=== PATIENT | male | born 1955 | race Asian ===

== ENCOUNTER 2020-09-16 23:44 | Inpatient (IN) | payer SELFPAY ==
[~2020-09-16] VITALS: Ht 157.5 cm; Wt 104.2 kg
[2020-09-16] MEDS ORDERED: LORazepam INJ 2 MG/ML (ATIVAN) VIAL ONE (23:53)
[2020-09-17 00:10] LABS: HEMATOCRIT 52 % (40-54); HEMOGLOBIN 17.2 G/DL (13.3-17.7); MEAN CORPUSCULAR HEMOGLOBIN 29 PG (25-34); MEAN CORPUSCULAR HGB CONC 33 G/DL (32-36); MEAN CORPUSCULAR VOLUME 87 FL (80-99); MEAN PLATELET VOLUME 10.2 FL (7.4-10.4); PLATELET COUNT 195 10^3/uL (130-400); WHITE BLOOD COUNT 8.8 10^3/uL (4.3-11.0)
[2020-09-17 00:11] LABS: BASOPHILS % (AUTO) 0 % (0-10); EOSINOPHILS % (AUTO) 0 % (0-10); LYMPHOCYTES # (AUTO) 2.5 X 10^3 (1.0-4.0); LYMPHOCYTES % (AUTO) 29 % (12-44); MONOCYTES # (AUTO) 0.6 X 10^3 (0.0-1.0); MONOCYTES % (AUTO) 7 % (0-12); NEUTROPHILS # (AUTO) 5.6 X 10^3 (1.8-7.8); NEUTROPHILS % (AUTO) 64 % (42-75)
[2020-09-17 00:17] LABS: ABG BASE EXCESS 1.1 MMOL/L (-2.5-2.5); ABG OXYGEN SATURATION 92 % (94-100); ABG PCO2 37 MMHG (35-45); ABG PH 7.44 (7.37-7.43); ABG PO2 61 MMHG (79-93); ABG TCO2 26.2 MMOL/L (21.0-31.0)
[2020-09-17 00:19] LABS: INSPIRED O2 95% BIPAP; PATIENT TEMP 36.9; VENTILATOR NO
[2020-09-17 00:40] LABS: BUN/CREATININE RATIO 14; CARBON DIOXIDE 23 MMOL/L (21-32); CHLORIDE 93 MMOL/L (98-107); CREATININE SERUM 1.77 MG/DL (0.60-1.30); GFR ESTIMATED 39; POTASSIUM 3.5 MMOL/L (3.6-5.0); SODIUM 133 MMOL/L (135-145)
[2020-09-17 00:41] LABS: ALANINE AMINOTRANSFERASE 33 U/L (0-55); ALBUMIN 3.1 GM/DL (3.2-4.5); ALKALINE PHOSPHATASE 64 U/L (40-136); BILIRUBIN,TOTAL 0.4 MG/DL (0.1-1.0); CALCIUM 8.4 MG/DL (8.5-10.1); GLUCOSE 191 MG/DL (70-105); TOTAL PROTEIN 7.2 GM/DL (6.4-8.2)
[2020-09-17] MEDS ORDERED: PIPERACILLIN SODIUM/TAZOBACTAM 4.5 GM in NS (IVPB) 100 ML IV ONE (01:00)
[2020-09-17] MEDS ORDERED: NS IV 1000 ML 1,000 ML IV SCH (01:00)
--- NOTE | 2020-09-17 01:01 | ED General ---
General Chief Complaint: Respiratory Problems Stated Complaint: POS COVID Nursing Triage Note: PT TO ROOM VIA W/C WITH C/O SOB. PT FAMILY STATES THAT PT O2 AT HOME WAS 20%. PT O2 35% UPON ARRIVAL. PT A/O X4. PT BREATHING LABORED. Nursing Sepsis Screen: Possible Severe Sepsis Risk History of Present Illness Date Seen by Provider: Sep 16, 2020 Time Seen by Provider: 23:45 Initial Comments Patient is a 64-year-old male diagnosed with COVID 2 days ago who presents with respiratory distress/respiratory failure. Patient states he is progressively became more short of breath over the past 2 days. Reports history of asthma. On ED arrival, the patient's to With purse lip breathing with an O2 saturation of 40%. Patient brought immediately back to a treatment room and placed on oxygen mask and transitioned to BiPAP. History is limited due to the patient's clinical condition. Timing/Duration: 3-4 Days Severity: Severe Modifying Factors: improves with Other Associated Systoms: Other Allergies and Home Medications Allergies Coded Allergies: No Known Drug Allergies (Unverified , 09/17/20) Patient Home Medication List Home Medication List Reviewed: Yes Review of Systems Review of Systems Constitutional: see HPI EENTM: see HPI Respiratory: see HPI Gastrointestinal: see HPI Genitourinary: see HPI Musculoskeletal: see HPI Skin: see HPI Psychiatric/Neurological: See HPI Hematologic/Lymphatic: See HPI Immunological/Allergic: see HPI Past Nbsiczr-Zcmwvy-Kkgpzd Hx Past Med/Social Hx: Reviewed Nursing Past Med/Soc Hx Patient Social History Alcohol Use: Denies Use Recreational Drug Use: No Smoking Status: Never a Smoker 2nd Hand Smoke Exposure: No Recent Foreign Travel: No Contact w/Someone Who Travel: No Recent Infectious Disease Expo: Yes Recent Hopitalizations: No Physical Abuse: No Sexual Abuse: No Mistreated: No Fear: No Seasonal Allergies Seasonal Allergies: No Past Medical History Surgeries: Yes (THROAT) Respiratory: Yes Asthma, COPD Cardiac: No Neurological: No Genitourinary: No Gastrointestinal: No Musculoskeletal: No Endocrine: Yes Diabetes, Non-Insulin dep HEENT: No Cancer: No Psychosocial: No Integumentary: No Blood Disorders: No Physical Exam Vital Signs Vital Signs - First Documented 09/17/20 00:23 Temp 36.9 Pulse 100 Resp 31 B/P (MAP) 159/84 (109) O2 Delivery Room Air Capillary Refill : Less Than 3 Seconds Height, Weight, BMI Height: '" Weight: lbs. oz. kg; 27.00 BMI Method: General Appearance: Anxious, Moderate Distress, Severe Distress Eyes: Bilateral Eye Normal Inspection, Bilateral Eye PERRL, Bilateral Eye EOMI HEENT: PERRL/EOMI, Other Neck: Supple Respiratory: Decreased Breath Sounds, Respiratory Distress, Rhonci Cardiovascular: Tachycardia Gastrointestinal: Soft Back: Normal Inspection Extremity: Normal Capillary Refill, Normal Inspection Neurologic/Psychiatric: Alert, Oriented x3 Skin: Normal Color Focused Exam Sepsis Stage: Ruled Out Lactate Level 09/17/20 00:11: Lactic Acid Level 3.59*H Lactic Acid Level Laboratory Tests Test 09/17/20 00:11 Lactic Acid Level 3.59 MMOL/L (0.50-2.00) *H Progress/Results/Core Measures Suspected Sepsis Recent Fever Within 48 Hours: Yes Infection Criteria Present: Documented Infection New/Unexplained Altered Menta: No Sepsis Screen: Possible Severe Sepsis Risk SIRS Temperature: Pulse: 100 Respiratory Rate: 31 Laboratory Tests 09/17/20 00:00: White Blood Count 8.8 Blood Pressure 159 /84 Mean: 109 09/17/20 00:11: Lactic Acid Level 3.59*H Laboratory Tests 09/17/20 00:00: Creatinine 1.77H, Platelet Count 195, Total Bilirubin 0.4 Results/Orders Lab Results Laboratory Tests Test 09/17/20 00:00 09/17/20 00:07 09/17/20 00:11 Range/Units White Blood Count 8.8 4.3-11.0 10^3/uL Red Blood Count 5.92 H 4.35-5.85 10^6/uL Hemoglobin 17.2 13.3-17.7 G/DL Hematocrit 52 40-54 % Mean Corpuscular Volume 87 80-99 FL Mean Corpuscular Hemoglobin 29 25-34 PG Mean Corpuscular Hemoglobin Concent 33 32-36 G/DL Red Cell Distribution Width 14.8 H 10.0-14.5 % Platelet Count 195 130-400 10^3/uL Mean Platelet Volume 10.2 7.4-10.4 FL Immature Granulocyte % (Auto) 1 % Neutrophils (%) (Auto) 64 42-75 % Lymphocytes (%) (Auto) 29 12-44 % Monocytes (%) (Auto) 7 0-12 % Eosinophils (%) (Auto) 0 0-10 % Basophils (%) (Auto) 0 0-10 % Neutrophils # (Auto) 5.6 1.8-7.8 X 10^3 Lymphocytes # (Auto) 2.5 1.0-4.0 X 10^3 Monocytes # (Auto) 0.6 0.0-1.0 X 10^3 Eosinophils # (Auto) 0.0 0.0-0.3 10^3/uL Basophils # (Auto) 0.0 0.0-0.1 10^3/uL Immature Granulocyte # (Auto) 0.0 0.0-0.1 10^3/uL Sodium Level 133 L 135-145 MMOL/L Potassium Level 3.5 L 3.6-5.0 MMOL/L Chloride Level 93 L 98-107 MMOL/L Carbon Dioxide Level 23 21-32 MMOL/L Anion Gap 17 H 5-14 MMOL/L Blood Urea Nitrogen 25 H 7-18 MG/DL Creatinine 1.77 H 0.60-1.30 MG/DL Estimat Glomerular Filtration Rate 39 BUN/Creatinine Ratio 14 Glucose Level 191 H 70-105 MG/DL Calcium Level 8.4 L 8.5-10.1 MG/DL Corrected Calcium 9.1 8.5-10.1 MG/DL Total Bilirubin 0.4 0.1-1.0 MG/DL Aspartate Amino Transf (AST/SGOT) 57 H 5-34 U/L Alanine Aminotransferase (ALT/SGPT) 33 0-55 U/L Alkaline Phosphatase 64 40-136 U/L Troponin I < 0.30 <0.30 NG/ML Pro-B-Type Natriuretic Peptide 419.0 H <75.0 PG/ML Total Protein 7.2 6.4-8.2 GM/DL Albumin 3.1 L 3.2-4.5 GM/DL Blood Gas Puncture Site RT RADIAL Blood Gas Patient Temperature 36.9 Arterial Blood pH 7.44 H 7.37-7.43 Arterial Blood Partial Pressure CO2 37 35-45 MMHG Arterial Blood Partial Pressure O2 61 L 79-93 MMHG Arterial Blood HCO3 25 23-27 MMOL/L Arterial Blood Total CO2 26.2 21.0-31.0 MMOL/L Arterial Blood Oxygen Saturation 92 L 94-100 % Arterial Blood Base Excess 1.1 -2.5-2.5 MMOL/L Ned Test NA Blood Gas Ventilator Setting NO Blood Gas Inspired Oxygen 95% BIPAP Lactic Acid Level 3.59 *H 0.50-2.00 MMOL/L My Orders Orders - WENDY ZUNIGA DO Lorazepam Injection (Ativan Injection) (09/16/20 23:53) Cbc With Automated Diff (09/17/20 00:00) Comprehensive Metabolic Panel (09/17/20 00:00) Chest 1 View Ap/Pa Only (09/17/20 00:00) Arterial Blood Gas (09/17/20 00:00) Troponin I Fs (09/17/20 00:00) Probnp Fs (09/17/20 00:00) Blood Culture (09/17/20 00:00) Lactic Acid Analyzer (09/17/20 00:00) Ekg-Prn For Chest Pain Or Rhyt (09/17/20 00:00) Blood Culture (09/17/20 00:11) Ns Iv 1000 Ml (Sodium Chloride 0.9%) (09/17/20 01:00) Piperacillin Sodium/Tazobactam (Zosyn Vi (09/17/20 01:00) Dexamethasone Injection (Decadron Injec (09/17/20 01:00) Lorazepam Injection (Ativan Injection) (09/17/20 01:15) Vital Signs/I&O 09/17/20 00:23 Temp 36.9 Pulse 100 Resp 31 B/P (MAP) 159/84 (109) O2 Delivery Room Air Capillary Refill : Less Than 3 Seconds Blood Pressure Mean: 109 Departure Communication (Admissions) With patient with COVID with respiratory distress with bilateral infiltrates on chest x-ray requiring BiPAP in the 100% oxygen. Patient's breathing improved significantly and he is resting comfortably with Ativan. Antibiotics and steroids given. Will transfer to CDU at [facility]. Family members updated of patient's progress. Impression Primary Impression: Acute respiratory failure with hypoxia Additional Impression: COVID-19 Disposition: 09 ADMITTED INPATIENT Condition: Critical Admissions Decision to Admit Reason: Admit from ER (General) Decision to Admit/Date: Sep 17, 2020 Time/Decision to Admit Time: 01:19 Transfer Transfer Reason: Exceeds level of care Method of Transfer: EMS Departure-Patient Inst. Referrals: NO,LOCAL PHYSICIAN (PCP/Family) Primary Care Physician WENDY ZUNIGA DO Sep 17, 2020 01:01
[2020-09-17] MEDS ORDERED: LORazepam INJ 2 MG/ML (ATIVAN) VIAL IVP ONE (01:15)
[2020-09-17 02:20] VITALS: BP 119/76
[2020-09-17 03:49] LABS: ABG OXYGEN SATURATION 99 % (94-100); ABG PCO2 35 MMHG (35-45); ABG PH 7.42 (7.37-7.43); ABG PO2 139 MMHG (79-93); ALLENS TEST YES-POS; INSPIRED O2 100%; PATIENT TEMP 97.4; VENTILATOR NO
[2020-09-17 04:08] LABS: BASOPHILS % (AUTO) 0 % (0-10); EOSINOPHILS % (AUTO) 0 % (0-10); HEMATOCRIT 48 % (40-54); HEMOGLOBIN 15.9 g/dL (13.3-17.7); LYMPHOCYTES % (AUTO) 12 % (12-44); MEAN CORPUSCULAR HEMOGLOBIN 29 pg (25-34); MEAN CORPUSCULAR HGB CONC 33 g/dL (32-36); MEAN CORPUSCULAR VOLUME 88 fL (80-99); MEAN PLATELET VOLUME 10.1 fL (9.0-12.2); MONOCYTES # (AUTO) 0.5 10^3/uL (0.0-1.0); MONOCYTES % (AUTO) 6 % (0-12); NEUTROPHILS # (AUTO) 6.5 10^3/uL (1.8-7.8); NEUTROPHILS % (AUTO) 82 % (42-75); PLATELET COUNT 174 10^3/uL (130-400)
[2020-09-17 04:22] LABS: POTASSIUM 3.6 MMOL/L (3.6-5.0)
[2020-09-17 04:23] LABS: CALCIUM 7.6 MG/DL (8.5-10.1)
[2020-09-17 04:24] LABS: TOTAL PROTEIN 6.4 GM/DL (6.4-8.2)
[2020-09-17 04:26] LABS: BILIRUBIN,TOTAL 0.4 MG/DL (0.1-1.0)
[2020-09-17 04:28] LABS: CREATININE SERUM 1.82 MG/DL (0.60-1.30)
[2020-09-17] MEDS: POTASSIUM CL 10MEQ/50ML IVPB 50 ML IV SCH ×2 (05:09→05:38)
[2020-09-17] MEDS: KCL 20 MEQ TAB (K-DUR) PO SCH ×2 (05:10→05:38)
[2020-09-17] MEDS: MAGNESIUM 1 GM/100 ML IVPB 100 ML IV SCH ×2 (05:37→05:38)
--- NOTE | 2020-09-17 05:51 | Pulmonary Consultation ---
History of Present Illness History of Present Illness Date Seen by Provider: Sep 17, 2020 Time Seen by Provider: 05:46 Date of Admission Allergies and Home Medications Allergies Coded Allergies: No Known Drug Allergies (Unverified , 09/17/20) Past Tdfazbn-Ddixwy-Vnhkcb Hx Past Med/Social Hx: Reviewed Nursing Past Med/Soc Hx Patient Social History Alcohol Use: Denies Use Number of Drinks Today: 0 Recreational Drug Use: No Smoking Status: Never a Smoker 2nd Hand Smoke Exposure: No Recent Foreign Travel: No Contact w/Someone Who Travel: No Recent Infectious Disease Expo: Yes Recent Hopitalizations: No Physical Abuse: No Sexual Abuse: No Mistreated: No Fear: No Seasonal Allergies Seasonal Allergies: No Past Medical History Surgeries: Yes (throat) Respiratory: Yes Asthma, Pneumonia Currently Using CPAP: No Currently Using BIPAP: No Cardiac: No Neurological: No Genitourinary: No Gastrointestinal: No Musculoskeletal: No Endocrine: Yes Diabetes, Non-Insulin dep HEENT: No Cancer: No Psychosocial: No Integumentary: No Blood Disorders: No Family Medical History Diabetes mellitus 19 FATHER 19 MOTHER Review of Systems Time Seen by Provider: 05:54 Sepsis Event Evaluation Height, Weight, BMI Height: '" Weight: lbs. oz. kg; 30.55 BMI Method: Exam Exam Vital Signs Date Time Temp Pulse Resp B/P (MAP) Pulse Ox O2 Delivery O2 Flow Rate FiO2 09/17/20 04:46 97 NIV Bilevel 100 09/17/20 03:42 76 09/17/20 03:05 36.3 76 50 119/76 (90) 99 NIV Bilevel 100.00 09/17/20 02:15 78 19 107/69 98 NIV CPAP 09/17/20 00:23 36.9 100 31 159/84 (109) Room Air I & O 09/17/20 07:00 Intake Total 1100 ml Balance 1100 ml Height & Weight Height: '" Weight: lbs. oz. kg; 30.55 BMI Method: General Appearance: Anxious, Moderate Distress, Severe Distress HEENT: PERRL/EOMI, Other Neck: Supple Respiratory: Decreased Breath Sounds, Respiratory Distress, Rhonci Cardiovascular: Tachycardia Capillary Refill: Less Than 3 Seconds Extremity: Normal Capillary Refill, Normal Inspection Neurologic/Psychiatric: Alert, Oriented x3 Skin: Normal Color Results Lab Laboratory Tests 09/17/20 00:00 09/17/20 03:54 Assessment/Plan Assessment/Plan Acute respiratory failure with ARDS COVID penumonia -BiPAP with 100% -titrate oxygen down and trial pt to Vapotherm -Decadron -Proning -CVP -COVID dx 5 days ago -Pt does not qualify for remdesivir secondary PNA -Zosyn -jim cultures Acute renal insufficiency -Monitor -Avoid nephrotoxic meds - AsthmaAE -Albuterol -steroids GI/DVT ppx JESSI CRENSHAW DO Sep 17, 2020 05:51
[2020-09-17] MEDS ORDERED: PIPERACILLIN/TAZOBACTAM 4.5 GM in NS (IVPB) 100 ML IV ONE (06:00)
[2020-09-17] MEDS: LACTATED RINGERS 1,000 ML IV SCH (06:52)
[2020-09-17] MEDS ORDERED: dexAMETHasone 6 MG TAB (DECADRON) PO SCH (07:00)
[2020-09-17 07:17] LABS: BILIRUBIN,URINE NEGATIVE (NEGATIVE); CLARITY,URINE CLEAR; COLOR,URINE YELLOW; GLUCOSE, URINE (UA) NEGATIVE (NEGATIVE); KETONES,URINE NEGATIVE (NEGATIVE); LEUKOCYTE ESTERASE ,URINE NEGATIVE (NEGATIVE); NITRITE,URINE NEGATIVE (NEGATIVE); PH,URINE 5.5 (5-9); PROTEIN,URINE 2+ (NEGATIVE)
--- NOTE | 2020-09-17 07:23 | Diagnostic Imaging Report ---
EXAMINATION: Chest 1 view HISTORY: Shortness of breath. COVID 19 infection. COMPARISON: None available. FINDINGS: Hazy opacities are seen throughout the lungs, greatest in the mid right lung. No large pleural effusion or pneumothorax is seen. The cardiomediastinal silhouette is normal in size and contour. No acute osseous abnormality is seen. IMPRESSION: 1. Hazy opacities throughout the lungs, greatest on the right. These findings are consistent with the history of COVID 19 infection. No pleural effusion. Dictated by: Dictated on workstation # [id number]
[2020-09-17 07:24] LABS: BACTERIA,URINE TRACE /HPF; RBC,URINE 0-2 /HPF; SQUAMOUS EPITHELIAL CELL,UR RARE /HPF; WBC,URINE 0-2 /HPF
[2020-09-17] MEDS: FAMOTIDINE 20MG/2ML IV (PEPCID) IVP SCH (08:21)
[2020-09-17] MEDS: ENOXAPARIN 40 MG/0.4 ML (LOVENOX) SYR SC SCH (08:21)
[2020-09-17] MEDS: RT-ALBUTEROL INHALER HFA (VENTOLIN HFA) 18 GM IH SCH ×5 (10:24→21:44)
[2020-09-17 10:35] VITALS: BP 123/69
[2020-09-17] MEDS ORDERED: PRAV40TA2 PO (11:13)
[2020-09-17] MEDS ORDERED: MONT10TA97 PO (11:13)
[2020-09-17] MEDS ORDERED: TMSL.4C PO (11:13)
[2020-09-17] MEDS ORDERED: AMLO-251 PO (11:13)
[2020-09-17] MEDS ORDERED: LOSA50TA63 PO (11:13)
[2020-09-17] MEDS ORDERED: TRZ50T PO (11:13)
[2020-09-17] MEDS: inSUlin ASPART (NovoLOG) 1 UNIT/0.01 ML (CHARGE PER UNIT) SQ SCH ×2 (11:42→18:05)
[2020-09-17] MEDS: PIPERACILLIN/TAZOBACTAM (BULK) 4.5 GM in NS (IVPB) 100 ML IV SCH ×2 (13:20→20:54)
[2020-09-18] MEDS: inSUlin ASPART (NovoLOG) 1 UNIT/0.01 ML (CHARGE PER UNIT) SQ SCH ×5 (00:10→23:24)
[2020-09-18 03:53] LABS: BASOPHILS % (AUTO) 0 % (0-10); EOSINOPHILS % (AUTO) 0 % (0-10); HEMATOCRIT 47 % (40-54); HEMOGLOBIN 15.7 g/dL (13.3-17.7); LYMPHOCYTES # (AUTO) 1.2 10^3/uL (1.0-4.0); LYMPHOCYTES % (AUTO) 11 % (12-44); MEAN CORPUSCULAR HEMOGLOBIN 29 pg (25-34); MEAN CORPUSCULAR HGB CONC 33 g/dL (32-36); MEAN CORPUSCULAR VOLUME 88 fL (80-99); MEAN PLATELET VOLUME 10.3 fL (9.0-12.2); MONOCYTES # (AUTO) 0.7 10^3/uL (0.0-1.0); MONOCYTES % (AUTO) 6 % (0-12); NEUTROPHILS # (AUTO) 8.8 10^3/uL (1.8-7.8); NEUTROPHILS % (AUTO) 82 % (42-75); PLATELET COUNT 197 10^3/uL (130-400); WHITE BLOOD COUNT 10.8 10^3/uL (4.3-11.0)
[2020-09-18 04:04] LABS: POTASSIUM 3.8 MMOL/L (3.6-5.0)
[2020-09-18 04:10] LABS: CREATININE SERUM 1.59 MG/DL (0.60-1.30); PHOSPHORUS 3.8 MG/DL (2.3-4.7)
--- NOTE | 2020-09-18 04:10 | Diagnostic Imaging Report ---
Indication: Shortness of breath Portable chest 2:24 AM Heart enlarged. There are some faint patchy alveolar infiltrates in both lungs. There are no effusions or pneumothoraces. IMPRESSION: Patchy groundglass infiltrates in the lungs consistent with viral pneumonia. No significant change compared to the previous day. Dictated by: Dictated on workstation # [id number]
[2020-09-18 04:12] LABS: MAGNESIUM 2.5 MG/DL (1.6-2.4)
--- NOTE | 2020-09-18 04:26 | Pulmonary Progress Note ---
Subjective Time Seen by a Provider: 04:23 Subjective/Events-last exam Pt is on BiPAP at 60% Sepsis Event Evaluation Height, Weight, BMI Height: '" Weight: lbs. oz. kg; 30.55 BMI Method: Focused Exam Lactate Level 09/17/20 00:11: Lactic Acid Level 3.59*H 09/17/20 03:54: Lactic Acid Level 1.32 Exam Exam Vital Signs Date Time Temp Pulse Resp B/P (MAP) Pulse Ox O2 Delivery O2 Flow Rate FiO2 09/18/20 03:00 71 31 118/84 (95) 97 NIV Bilevel 60.00 09/18/20 02:00 54 112/67 (82) 94 NIV Bilevel 60.00 09/18/20 01:00 67 40 118/77 (91) 98 NIV Bilevel 60.00 09/18/20 00:48 53 24 91 NIV Bilevel 80.00 09/18/20 00:00 70 20 108/59 (82) 92 NIV Bilevel 60.00 09/17/20 23:34 35.4 09/17/20 23:00 55 124/74 (90) 94 NIV Bilevel 60.00 09/17/20 22:00 77 38 102/94 (99) 90 NIV Bilevel 60.00 09/17/20 21:44 64 45 60.00 09/17/20 21:30 NIV Bilevel 60.00 09/17/20 21:00 63 37 120/65 (91) 96 NIV Bilevel 100.00 09/17/20 20:14 65 22 90.00 09/17/20 20:00 93 NIV Bilevel 60 09/17/20 20:00 57 40 121/80 (95) 98 NIV Bilevel 100.00 09/17/20 19:22 35.6 09/17/20 19:00 73 35 115/73 (87) 97 NIV Bilevel 100.00 09/17/20 19:00 74 09/17/20 18:00 59 30 118/77 (91) 95 NIV Bilevel 100.00 09/17/20 17:00 69 38 109/77 (88) 96 NIV Bilevel 100.00 09/17/20 16:00 67 55 126/70 (88) 98 NIV Bilevel 100.00 09/17/20 15:50 35.4 09/17/20 15:00 66 37 112/61 (78) 95 NIV Bilevel 100.00 09/17/20 14:51 61 24 94 90.00 09/17/20 14:49 95 NIV Bilevel 90 09/17/20 14:00 67 46 109/72 (84) 100 NIV Bilevel 100.00 09/17/20 13:00 61 47 100/62 (75) 94 NIV Bilevel 100.00 09/17/20 12:46 58 09/17/20 12:00 68 39 115/78 (90) 98 NIV Bilevel 100.00 09/17/20 11:20 35.3 09/17/20 11:00 71 18 120/69 (86) 97 NIV Bilevel 100.00 09/17/20 10:35 70 28 94 90.00 09/17/20 10:24 88 Vapotherm 40.00 100 09/17/20 10:00 73 16 111/75 (87) 90 NIV Bilevel 100.00 09/17/20 09:00 68 56 115/72 (86) 90 NIV Bilevel 100.00 09/17/20 08:35 90 Vapotherm 40.00 100 09/17/20 08:04 90 Vapotherm 40.00 100 09/17/20 08:00 75 26 111/70 (84) 94 NIV Bilevel 100.00 09/17/20 07:47 36.0 09/17/20 07:13 73 09/17/20 07:00 80 43 135/84 (101) 94 NIV Bilevel 100.00 09/17/20 06:00 62 53 112/75 (92) 95 NIV Bilevel 100.00 09/17/20 05:30 68 50 126/84 (95) NIV Bilevel 100.00 09/17/20 05:05 73 47 95 NIV Bilevel 100.00 09/17/20 05:00 74 48 126/77 (98) 92 NIV Bilevel 100.00 09/17/20 04:46 97 NIV Bilevel 100 09/17/20 04:30 72 56 122/72 (89) 84 NIV Bilevel 100.00 I & O 09/18/20 06:59 Intake Total 150 ml Output Total 1525 ml Balance -1375 ml Height & Weight Height: '" Weight: lbs. oz. kg; 30.55 BMI Method: General Appearance: Anxious, Moderate Distress, Severe Distress HEENT: PERRL/EOMI, Other Neck: Supple Respiratory: Decreased Breath Sounds, Respiratory Distress, Rhonci Cardiovascular: Tachycardia Capillary Refill: Less Than 3 Seconds Extremity: Normal Capillary Refill, Normal Inspection Neurologic/Psychiatric: Alert, Oriented x3 Skin: Normal Color Results Lab Laboratory Tests 09/17/20 00:00 09/17/20 03:54 09/18/20 03:18 Assessment/Plan Assessment/Plan COVID penumonia -BiPAP 24/04 with 60% -titrate oxygen down and trial pt to Vapotherm -Decadron -Proning -CVP -COVID dx 5 days ago -Pt does not qualify for remdesivir secondary PNA -Zosyn -jim cultures Acute renal insufficiency - improving -IVF currently LR at 30 -Monitor -Avoid nephrotoxic meds - AsthmaAE -Albuterol -steroids GI/DVT ppx -Lovenox PPX -Pepcid JESSI CRENSHAW DO Sep 18, 2020 04:26
[2020-09-18] MEDS: POTASSIUM CL 10MEQ/50ML IVPB 50 ML IV SCH (05:24)
[2020-09-18] MEDS: MAGNESIUM 1 GM/100 ML IVPB 100 ML IV SCH (05:24)
[2020-09-18] MEDS: KCL 20 MEQ TAB (K-DUR) PO SCH (05:25)
[2020-09-18] MEDS: LACTATED RINGERS 1,000 ML IV SCH (06:16)
[2020-09-18] MEDS: ENOXAPARIN 40 MG/0.4 ML (LOVENOX) SYR SC SCH (06:16)
[2020-09-18] MEDS: PIPERACILLIN/TAZOBACTAM (BULK) 4.5 GM in NS (IVPB) 100 ML IV SCH ×3 (06:16→19:34)
[2020-09-18 07:05] VITALS: BP 112/68
[2020-09-18] MEDS: RT-ALBUTEROL INHALER HFA (VENTOLIN HFA) 18 GM IH SCH ×5 (07:05→21:59)
[2020-09-18] MEDS: FAMOTIDINE 20MG/2ML IV (PEPCID) IVP SCH (08:00)
[2020-09-18] MEDS: DexMEDEtomidine PRE MIX 100 ML IV SCH (08:07)
[2020-09-18 08:32] LABS: ABG BASE EXCESS -0.1 MMOL/L (-2.5-2.5); ABG OXYGEN SATURATION 91 % (94-100); ABG PCO2 33 MMHG (35-45); ABG PH 7.46 (7.37-7.43); ABG PO2 57 MMHG (79-93); ABG TCO2 24.7 MMOL/L (21.0-31.0); ALLENS TEST YES-POS; INSPIRED O2 50% BIPAP; PATIENT TEMP 35.7; VENTILATOR NO
[2020-09-18 09:57] VITALS: BP 133/75
[2020-09-18 15:08] VITALS: BP 93/65
[2020-09-18 18:52] VITALS: BP 145/87
[2020-09-18] MEDS ORDERED: ACETAMINOPHEN 325 MG TABLET PO ONE (21:24)
[2020-09-18 21:59] VITALS: BP 145/87
[2020-09-19 04:01] LABS: BASOPHILS % (AUTO) 0 % (0-10); EOSINOPHILS % (AUTO) 0 % (0-10); HEMATOCRIT 45 % (40-54); HEMOGLOBIN 15.2 g/dL (13.3-17.7); LYMPHOCYTES # (AUTO) 1.2 10^3/uL (1.0-4.0); LYMPHOCYTES % (AUTO) 11 % (12-44); MEAN CORPUSCULAR HEMOGLOBIN 30 pg (25-34); MEAN CORPUSCULAR HGB CONC 34 g/dL (32-36); MEAN CORPUSCULAR VOLUME 88 fL (80-99); MEAN PLATELET VOLUME 10.8 fL (9.0-12.2); MONOCYTES # (AUTO) 0.6 10^3/uL (0.0-1.0); MONOCYTES % (AUTO) 5 % (0-12); NEUTROPHILS # (AUTO) 9.1 10^3/uL (1.8-7.8); NEUTROPHILS % (AUTO) 83 % (42-75); PLATELET COUNT 188 10^3/uL (130-400)
[2020-09-19 04:20] LABS: POTASSIUM 3.8 MMOL/L (3.6-5.0)
[2020-09-19 04:21] LABS: CALCIUM 7.9 MG/DL (8.5-10.1)
[2020-09-19 04:25] LABS: CREATININE SERUM 1.57 MG/DL (0.60-1.30); PHOSPHORUS 3.6 MG/DL (2.3-4.7)
[2020-09-19 04:28] LABS: MAGNESIUM 2.7 MG/DL (1.6-2.4)
[2020-09-19] MEDS: POTASSIUM CL 10MEQ/50ML IVPB 50 ML IV SCH (04:57)
[2020-09-19] MEDS: MAGNESIUM 1 GM/100 ML IVPB 100 ML IV SCH (04:57)
[2020-09-19] MEDS: KCL 20 MEQ TAB (K-DUR) PO SCH (04:57)
[2020-09-19] MEDS: inSUlin ASPART (NovoLOG) 1 UNIT/0.01 ML (CHARGE PER UNIT) SQ SCH ×4 (04:57→23:36)
[2020-09-19] MEDS: RT-ALBUTEROL INHALER HFA (VENTOLIN HFA) 18 GM IH SCH ×6 (05:17→23:00)
[2020-09-19] MEDS: LACTATED RINGERS 1,000 ML IV SCH ×2 (05:26→16:39)
[2020-09-19] MEDS: PIPERACILLIN/TAZOBACTAM (BULK) 4.5 GM in NS (IVPB) 100 ML IV SCH ×3 (05:43→20:47)
[2020-09-19] MEDS: ENOXAPARIN 40 MG/0.4 ML (LOVENOX) SYR SC SCH (05:43)
[2020-09-19] MEDS: DexMEDEtomidine PRE MIX 100 ML IV SCH ×5 (05:53→20:48)
[2020-09-19 06:40] VITALS: BP 151/77
[2020-09-19 07:43] LABS: ABG BASE EXCESS -1.1 MMOL/L (-2.5-2.5); ABG OXYGEN SATURATION 87 % (94-100); ABG PCO2 30 MMHG (35-45); ABG PH 7.48 (7.37-7.43); ABG PO2 52 MMHG (79-93); ABG TCO2 23.1 MMOL/L (21.0-31.0)
[2020-09-19 07:44] LABS: ALLENS TEST YES-POS; INSPIRED O2 70%; VENTILATOR NO
[2020-09-19 07:45] LABS: PATIENT TEMP 36
[2020-09-19] MEDS: FAMOTIDINE 20MG/2ML IV (PEPCID) IVP SCH (09:02)
[2020-09-19] MEDS ORDERED: LORazepam INJ 2 MG/ML (ATIVAN) VIAL IVP NR (09:45)
--- NOTE | 2020-09-19 10:33 | Diagnostic Imaging Report ---
INDICATION: Dyspnea. TECHNIQUE: Single view chest 3:27 AM. CORRELATION STUDY: 09/18/2020 FINDINGS: Heart size is enlarged. Increasing pulmonary vascular congestion, likely perihilar edema. Mildly prominent interstitial markings. Additional screw scattered groundglass opacities throughout both lung kaufman also appears slightly increased. Left upper extremity central line has been placed, the tip projecting over the high right atrium. IMPRESSION: 1. Increasing bilateral groundglass opacities likely reflecting worsening pneumonia versus edema. Vasculature also appears to be slightly increased from prior. 2. Left upper extremity central line has been placed, the tip projecting over the high right atrium. Dictated by: Dictated on workstation # [id number]
[2020-09-19 11:12] VITALS: BP 183/111
[2020-09-19] MEDS ORDERED: ALTEPLASE 100 MG/VIAL (ACTIVASE) ONE (11:31)
[2020-09-19] MEDS ORDERED: [UNRECOGNIZED DRUG - OTHER] IV ONE (11:34)
[2020-09-19] MEDS ORDERED: fentaNYL DRIP PRE-MIX 0 ML IV ONE (11:34)
[2020-09-19] MEDS ORDERED: MIDAZOLAM IV ONE (11:34)
[2020-09-19] MEDS ORDERED: PROPOFOL DRIP (ICU) 200 ML IV ONE (11:34)
[2020-09-19] MEDS ORDERED: HEParin (CENTRAL IV FLUSH) 500 UNIT/5 ML SYR ONE (11:38)
[2020-09-19] MEDS ORDERED: CATHETER FLUSH 10 ML SYR IV PRN (11:45)
--- NOTE | 2020-09-19 11:53 | Physical Therapy Progress Note ---
Therapy Progress Note Orders received from PT, patient intubated and sedated. We will continue to monitor for PT evaluation. YOGESH TRONCOSO PT Sep 19, 2020 11:53
[2020-09-19 12:15] VITALS: BP 119/82
[2020-09-19] MEDS: PROPOFOL DRIP (ICU) 100 ML IV SCH ×3 (12:30→23:32)
[2020-09-19] MEDS ORDERED: ENOXAPARIN 100 MG/1 ML (LOVENOX) SYR SC SCH (13:00)
--- NOTE | 2020-09-19 13:01 | Progress Note - Hospitalist ---
Subjective HPI/CC On Admission Date Seen by Provider: Sep 19, 2020 Time Seen by Provider: 09:35 Subjective/Events-last exam He is short of breath. He is wearing his BiPAP. He he is tired and weak. Focused Exam Lactate Level 09/17/20 00:11: Lactic Acid Level 3.59*H 09/17/20 03:54: Lactic Acid Level 1.32 Objective Exam Vital Signs Vital Signs Date Time Temp Pulse Resp B/P (MAP) Pulse Ox O2 Delivery O2 Flow Rate FiO2 09/19/20 12:30 63 119/82 09/19/20 12:30 35.7 26 100 Mechanical Ventilator 40.00 09/19/20 12:15 100 Capillary Refill : Less Than 3 Seconds General Appearance: Moderate Distress (tachypnea), Obese Respiratory: Respiratory Distress (tachypnea), Wheezing, Other (wearing BiPAP) Cardiovascular: Regular Rate, Rhythm, No Edema, No Murmur Gastrointestinal: Normal Bowel Sounds, Non Tender, Soft Extremity: Normal Inspection, Non Tender, No Pedal Edema Neurologic/Psychiatric: Alert, Motor Weakness Skin: Normal Color, Warm/Dry Results/Procedures Lab Laboratory Tests 09/19/20 03:22 Patient resulted labs reviewed. Imaging: Reviewed Imaging Report Assessment/Plan Assessment and Plan Assess & Plan/Chief Complaint ARDS due to COVID-19 PNA COVID-19 with pulmonary comorbidity Asthma Decadron BiPAP Precedex Will likely require intubation soon MAT protocol Zosyn D-dimer increasing Defer CT due to renal function Transition to therapeutic Lovenox DEENA Gentle IV fluids Obesity Clinically significant, no acute management needs Diagnosis/Problems Diagnosis/Problems (1) Acute respiratory distress syndrome (ARDS) due to COVID-19 virus Status: Acute (2) COVID-19 with pulmonary comorbidity Status: Acute (3) PNA (pneumonia) Status: Acute (4) Asthma Status: Chronic (5) DEENA (acute kidney injury) Status: Acute (6) Obesity Status: Chronic Clinical Quality Measures DVT/VTE Risk/Contraindication: Risk Factor Score Per Nursin RFS Level Per Nursing on Admit: 4+=Very High LAURA RHODES MD Sep 19, 2020 13:01
[2020-09-19 13:15] LABS: ABG BASE EXCESS -1.6 MMOL/L (-2.5-2.5); ABG OXYGEN SATURATION 100 % (94-100); ABG PCO2 34 MMHG (35-45); ABG PH 7.43 (7.37-7.43); ABG PO2 266 MMHG (79-93); ABG TCO2 23.3 MMOL/L (21.0-31.0)
[2020-09-19 13:18] LABS: ALLENS TEST YES-POS; INSPIRED O2 100%; PATIENT TEMP 36.6; VENTILATOR YES
--- NOTE | 2020-09-19 13:50 | Diagnostic Imaging Report ---
INDICATION: Post intubation. TECHNIQUE: Single view chest 1:05 PM. CORRELATION STUDY: 09/19/2020 FINDINGS: Endotracheal tube has been placed, the tip projecting over the lower trachea. This is approximately 1.5 cm above the level of the ashli. Gastric tube passes below the left hemidiaphragm. Right IJ central line has also been placed, the tip over the SVC. Left upper extremity central line tip over the right atrium stable. Heart size and mediastinum unchanged. A component of pulmonary vascular congestion does persist but perhaps slightly improved. Continued extensive bilateral groundglass opacities throughout both lung kaufman, remaining most pronounced involving the right upper lobe and also appears slightly improved. IMPRESSION: 1. Interval intubation. Endotracheal tube tip projecting over the low trachea and above the level of the ashli. 2. Extensive pulmonary opacities do persist but overall there is slightly improved aeration through the lung kaufman post intubation. Dictated by: Dictated on workstation # [id number]
[2020-09-19] MEDS ORDERED: ROCURONIUM 10 MG/ML 5 ML SYRINGE IV ONE (14:26)
--- NOTE | 2020-09-19 14:44 | Consultation - Surgery ---
History of Present Illness History of Present Illness Patient Consulted On(homer/time) 09/19/20 14:35 Date Seen by Provider: Sep 19, 2020 Time Seen by Provider: 13:00 History of Present Illness Consult requested by Dr. Song for central line placement due to poor venous access. Patient is 64-year-old male who has acute respiratory failure requiring intubation. Covid positive. Patient has a PICC line that is nonfunctioning at this time and patient needing central venous access. Patient is intubated and sedated, unable to provide any information. Allergies and Home Medications Allergies Coded Allergies: No Known Drug Allergies (Unverified , 09/17/20) Home Medications Amlodipine Besylate 10 Mg Tablet, 10 MG PO DAILY, (Reported) Losartan Potassium 50 Mg Tablet, 50 MG PO DAILY, (Reported) Montelukast Sodium 10 Mg Tablet, 10 MG PO HS, (Reported) Pravastatin Sodium 40 Mg Tablet, 40 MG PO HS, (Reported) Tamsulosin HCl 0.4 Mg Cap, 0.8 MG PO DAILY, (Reported) TAKES 2 (0.4MG) CAPS Trazodone HCl 50 Mg Tablet, 50 MG PO HS PRN for SLEEP, (Reported) Patient Home Medication List Home Medication List Reviewed: Yes Past Omsodfs-Sfnbav-Qihipa Hx Patient Social History Alcohol Use: Denies Use Number of Drinks Today: 0 Recreational Drug Use: No Smoking Status: Never a Smoker 2nd Hand Smoke Exposure: No Recent Foreign Travel: No Contact w/Someone Who Travel: No Recent Infectious Disease Expo: Yes Recent Hopitalizations: No Physical Abuse Screen: No Sexual Abuse: No Seasonal Allergies Seasonal Allergies: No Surgeries History of Surgeries: Yes (throat) Respiratory History of Respiratory Disorde: Yes Respiratory Disorders: Asthma, Pneumonia Cardiovascular History of Cardiac Disorders: No Neurological History of Neurological Disord: No Genitourinary History of Genitourinary Disor: No Gastrointestinal History of Gastrointestinal Di: No Musculoskeletal History of Musculoskeletal Dis: No Endocrine History of Endocrine Disorders: Yes Endocrine Disorders: Diabetes, Non-Insulin dep HEENT History of HEENT Disorders: No Cancer History of Cancer: No Psychosocial History of Psychiatric Problem: No Integumentary History of Skin or Integumenta: No Blood Transfusions History of Blood Disorders: No Reviewed Nursing Assessment Reviewed/Agree w Nursing PMH: Yes Family Medical History Significant Family History: No Pertinent Family Hx (Unable to provide) Family Medial History: Diabetes mellitus 19 FATHER 19 MOTHER Review of Systems-General ROS-Unable to Obtain: Unable to provide intubated and sedated. Physical Exam-General Problems Physical Exam Vital Signs Vital Signs - First Documented 09/17/20 09/17/20 09/17/20 09/17/20 00:23 02:15 02:20 04:46 Temp 36.9 Pulse 100 Resp 31 B/P (MAP) 159/84 (109) Pulse Ox 98 O2 Delivery Room Air O2 Flow Rate 100.00 FiO2 100 Capillary Refill : Less Than 3 Seconds General Appearance: no apparent distress (Intubated and sedated) HEENT: PERRL/EOMI, normal ENT inspection Neck: non-tender, supple Respiratory: no respiratory distress, no accessory muscle use, other (ET tube in place) Cardiovascular: regular rate, rhythm, no JVD Gastrointestinal: non tender, soft Rectal: deferred Back: normal inspection Extremities: normal inspection; No swelling Neurologic/Psychiatric: No alert, No normal mood/affect, No oriented x 3 (Intubated and sedated) Skin: normal color, warm/dry Lymphatic: no adenopathy Data Review Labs Laboratory Tests 09/18/20 17:11: Glucometer 173H 09/18/20 23:17: Glucometer 190H 09/19/20 03:22: White Blood Count 11.0, Red Blood Count 5.14, Hemoglobin 15.2, Hematocrit 45, Mean Corpuscular Volume 88, Mean Corpuscular Hemoglobin 30, Mean Corpuscular Hemoglobin Concent 34, Red Cell Distribution Width 14.6H, Platelet Count 188, Mean Platelet Volume 10.8, Immature Granulocyte % (Auto) 1, Neutrophils (%) (Auto) 83H, Lymphocytes (%) (Auto) 11L, Monocytes (%) (Auto) 5, Eosinophils (%) (Auto) 0, Basophils (%) (Auto) 0, Neutrophils # (Auto) 9.1H, Lymphocytes # (Auto) 1.2, Monocytes # (Auto) 0.6, Eosinophils # (Auto) 0.0, Basophils # (Auto) 0.0, Immature Granulocyte # (Auto) 0.1, Sodium Level 142, Potassium Level 3.8, Chloride Level 109H, Carbon Dioxide Level 20L, Anion Gap 13, Blood Urea Nitrogen 39H, Creatinine 1.57H, Estimat Glomerular Filtration Rate 44, BUN/Creatinine Ra mikhail 25, Glucose Level 107H, Calcium Level 7.9L, Phosphorus Level 3.6, Magnesium Level 2.7H 09/19/20 03:27: D-Dimer 2.11H, Procalcitonin 0.42H 09/19/20 07:39: Blood Gas Puncture Site R RAD, Blood Gas Patient Temperature 36, Arterial Blood pH 7.48H, Arterial Blood Partial Pressure CO2 30L, Arterial Blood Partial Pressure O2 52L, Arterial Blood HCO3 22L, Arterial Blood Total CO2 23.1, Arterial Blood Oxygen Saturation 87L, Arterial Blood Base Excess -1.1, Ned Test YES-POS, Blood Gas Ventilator Setting NO, Blood Gas Inspired Oxygen 70% 09/19/20 12:26: Glucometer 153H 09/19/20 13:05: Blood Gas Puncture Site L RADIAL, Blood Gas Patient Temperature 36.6, Arterial Blood pH 7.43, Arterial Blood Partial Pressure CO2 34L, Arterial Blood Partial Pressure O2 266H, Arterial Blood HCO3 22L, Arterial Blood Total CO2 23.3, Arterial Blood Oxygen Saturation 100, Arterial Blood Base Excess -1.6, Ned Test YES-POS, Blood Gas Ventilator Setting YES, Blood Gas Inspired Oxygen 100% Assessment/Plan Assessment/Plan Assessment/Plan Covid pneumonia Acute respiratory failure requiring intubation Poor venous access Patient is 64-year-old male just intubated. He has a PICC line but not functioning properly needing central venous access. Central line placed using ultrasound guidance. Chest x-ray pending. We will sign off call if needed. Procedure: Right internal jugular vein ultrasound-guided central line placement Patient was prepped and draped in a sterile fashion. Timeout was performed. Ultrasound was used to isolate the right internal jugular vein and local anesthetic was infiltrated. A total of 3 mL of 1% lidocaine. Under ultrasound guidance the right internal jugular vein was accessed dark nonpulsatile blood was withdrawn. The wire was inserted through the needle and the needle was removed. 11 blade scalpel was used to make a small skin incision at the insertion point. The dilator was then advanced over the wire and removed. The triple-lumen catheter was inserted over the guidewire and the wire was removed. The catheter was then secured using 3-0 silk suture. All ports were accessed and flushed without difficulty. The area was washed and dried and sterile bandage was applied. Chest x-ray pending Clinical Quality Measures DVT/VTE Risk/Contraindication: Risk Factor Score Per Nursin RFS Level Per Nursing on Admit: 4+=Very High MARVEL CORTEZ DO Sep 19, 2020 14:43
[2020-09-19 14:48] VITALS: BP 155/120
[2020-09-19] MEDS ORDERED: ENOXAPARIN 40 MG/0.4 ML (LOVENOX) SYR SC SCH (18:00)
[2020-09-19] MEDS: ENOXAPARIN 80 MG/0.8 ML (LOVENOX) SYR SC SCH (18:03)
[2020-09-19 19:05] VITALS: BP 148/80
[2020-09-20] MEDS: DexMEDEtomidine PRE MIX 100 ML IV SCH ×8 (00:23→23:49)
[2020-09-20] MEDS: RT-ALBUTEROL INHALER HFA (VENTOLIN HFA) 18 GM IH SCH ×6 (01:36→22:50)
[2020-09-20] MEDS: PIPERACILLIN/TAZOBACTAM (BULK) 4.5 GM in NS (IVPB) 100 ML IV SCH ×3 (03:33→20:53)
[2020-09-20 03:46] LABS: ABG BASE EXCESS -0.7 MMOL/L (-2.5-2.5); ABG OXYGEN SATURATION 98 % (94-100); ABG PCO2 31 MMHG (35-45); ABG PH 7.47 (7.37-7.43); ABG PO2 101 MMHG (79-93); ABG TCO2 23.3 MMOL/L (21.0-31.0)
[2020-09-20 03:47] LABS: BASOPHILS % (AUTO) 0 % (0-10); EOSINOPHILS % (AUTO) 0 % (0-10); HEMATOCRIT 48 % (40-54); HEMOGLOBIN 15.8 g/dL (13.3-17.7); LYMPHOCYTES # (AUTO) 1.4 10^3/uL (1.0-4.0); LYMPHOCYTES % (AUTO) 13 % (12-44); MEAN CORPUSCULAR HEMOGLOBIN 29 pg (25-34); MEAN CORPUSCULAR HGB CONC 33 g/dL (32-36); MEAN CORPUSCULAR VOLUME 89 fL (80-99); MEAN PLATELET VOLUME 10.9 fL (9.0-12.2); MONOCYTES # (AUTO) 0.4 10^3/uL (0.0-1.0); MONOCYTES % (AUTO) 4 % (0-12); NEUTROPHILS # (AUTO) 8.7 10^3/uL (1.8-7.8); NEUTROPHILS % (AUTO) 82 % (42-75); PLATELET COUNT 129 10^3/uL (130-400); WHITE BLOOD COUNT 10.6 10^3/uL (4.3-11.0)
[2020-09-20 03:48] LABS: ALLENS TEST YES-POS; INSPIRED O2 50%; PATIENT TEMP 37.7; VENTILATOR YES
[2020-09-20] MEDS: PROPOFOL DRIP (ICU) 100 ML IV SCH ×4 (03:50→23:42)
[2020-09-20 03:54] LABS: POTASSIUM 3.8 MMOL/L (3.6-5.0)
[2020-09-20 03:55] LABS: CALCIUM 7.5 MG/DL (8.5-10.1)
[2020-09-20 04:00] LABS: CREATININE SERUM 2.1 MG/DL (0.60-1.30); PHOSPHORUS 3.9 MG/DL (2.3-4.7)
[2020-09-20 04:12] LABS: FIBRIN DEGRADATION PRODUCTS 7.87 UG/ML (0.00-0.49); INR 1.2 (0.8-1.4); PROTHROMBIN TIME PATIENT 15.1 SEC (12.2-14.7)
[2020-09-20] MEDS: MAGNESIUM 1 GM/100 ML IVPB 100 ML IV SCH (05:52)
[2020-09-20] MEDS: POTASSIUM CL 10MEQ/50ML IVPB 50 ML IV SCH (05:52)
[2020-09-20] MEDS: inSUlin ASPART (NovoLOG) 1 UNIT/0.01 ML (CHARGE PER UNIT) SQ SCH ×4 (05:53→23:41)
[2020-09-20] MEDS: KCL 20 MEQ TAB (K-DUR) PO SCH (05:53)
[2020-09-20] MEDS: ENOXAPARIN 80 MG/0.8 ML (LOVENOX) SYR SC SCH (06:56)
[2020-09-20 07:27] VITALS: BP 108/85
--- NOTE | 2020-09-20 07:33 | Diagnostic Imaging Report ---
EXAM: Portable semi-erect AP chest at 3:35 PM INDICATION: Dyspnea FINDINGS: The heart size is within normal limits and stable when compared to 09/19/2020. The alveolar/interstitial pulmonary infiltrates involving both lungs, particularly the right lung, seen previously, are again evident. The lungs do seem slightly better aerated on today's exam. The mediastinum is not widened. The osseous structures are intact. The supportive tubes and lines remain in good position. IMPRESSION: The appearance of the chest has improved somewhat as both lungs do seem slightly better aerated. Dictated by: Dictated on workstation # [id number]
[2020-09-20] MEDS: PANTOPRAZOLE 40 MG (PROTONIX) VIAL IV SCH (08:48)
[2020-09-20] MEDS: ACETAMINOPHEN 650 MG SUPP (TYLENOL) PR PRN ×3 (09:23→23:41)
[2020-09-20 11:23] VITALS: BP 138/86
--- NOTE | 2020-09-20 14:58 | Progress Note - Hospitalist ---
Subjective HPI/CC On Admission Date Seen by Provider: Sep 20, 2020 Time Seen by Provider: 11:00 Subjective/Events-last exam He is intubated and sedated. Objective Exam Vital Signs Vital Signs Date Time Temp Pulse Resp B/P (MAP) Pulse Ox O2 Delivery O2 Flow Rate FiO2 09/20/20 14:00 67 158/93 (118) 92 Mechanical Ventilator 55.00 09/20/20 13:49 37.6 09/20/20 13:30 37 09/20/20 11:23 50 Capillary Refill : Less Than 3 Seconds General Appearance: No Apparent Distress, Obese, Other (intubated and sedated) Respiratory: No Respiratory Distress, Crackles, Other (mechanically ventilated) Cardiovascular: Regular Rate, Rhythm, No Edema, No Murmur Gastrointestinal: Normal Bowel Sounds, Soft Extremity: Normal Inspection, No Pedal Edema Neurologic/Psychiatric: Other (sedated) Skin: Normal Color, Warm/Dry Results/Procedures Lab Laboratory Tests 09/20/20 03:39 Patient resulted labs reviewed. Imaging: Reviewed Imaging Report Assessment/Plan Assessment and Plan Assess & Plan/Chief Complaint ARDS due to COVID-19 PNA COVID-19 with pulmonary comorbidity Hypercoagulable state associated with COVID-19 Asthma Decadron Convalescent plasma ordered Intubated 09/19, TeleICU managing vent settings Zosyn D-dimer significantly elevated Defer CT due to renal function Therapeutic Lovenox DEENA Increase fluids Obesity Clinically significant, no acute management needs Diagnosis/Problems Diagnosis/Problems (1) Acute respiratory distress syndrome (ARDS) due to COVID-19 virus Status: Acute (2) COVID-19 with pulmonary comorbidity Status: Acute (3) PNA (pneumonia) Status: Acute (4) Asthma Status: Chronic (5) DEENA (acute kidney injury) Status: Acute (6) Obesity Status: Chronic (7) Hypercoagulable state associated with COVID-19 Status: Acute (8) Acute kidney injury due to COVID-19 Status: Acute (9) Endotracheally intubated Status: Acute Clinical Quality Measures DVT/VTE Risk/Contraindication: Risk Factor Score Per Nursin RFS Level Per Nursing on Admit: 4+=Very High LAURA RHODES MD Sep 20, 2020 14:58
[2020-09-20 14:59] VITALS: BP 162/90
[2020-09-20 18:57] VITALS: BP 139/88
[2020-09-20 22:50] VITALS: BP 135/78
[2020-09-21] VITALS (8 sets, daily range): BP systolic 111–155; BP diastolic 70–88
[2020-09-21] MEDS: LACTATED RINGERS 1,000 ML IV SCH ×3 (01:41→23:52)
[2020-09-21] MEDS: RT-ALBUTEROL INHALER HFA (VENTOLIN HFA) 18 GM IH SCH ×6 (02:24→21:33)
[2020-09-21] MEDS: PIPERACILLIN/TAZOBACTAM (BULK) 4.5 GM in NS (IVPB) 100 ML IV SCH ×3 (03:32→19:53)
[2020-09-21] MEDS: PROPOFOL DRIP (ICU) 100 ML IV SCH ×4 (03:32→19:55)
[2020-09-21] MEDS: DexMEDEtomidine PRE MIX 100 ML IV SCH ×5 (03:33→21:41)
[2020-09-21 04:09] LABS: BASOPHILS % (AUTO) 0 % (0-10); EOSINOPHILS % (AUTO) 0 % (0-10); HEMATOCRIT 45 % (40-54); HEMOGLOBIN 14.7 g/dL (13.3-17.7); LYMPHOCYTES # (AUTO) 1.9 10^3/uL (1.0-4.0); LYMPHOCYTES % (AUTO) 15 % (12-44); MEAN CORPUSCULAR HEMOGLOBIN 29 pg (25-34); MEAN CORPUSCULAR HGB CONC 33 g/dL (32-36); MEAN CORPUSCULAR VOLUME 90 fL (80-99); MEAN PLATELET VOLUME 11.7 fL (9.0-12.2); MONOCYTES # (AUTO) 0.4 10^3/uL (0.0-1.0); MONOCYTES % (AUTO) 3 % (0-12); NEUTROPHILS # (AUTO) 9.9 10^3/uL (1.8-7.8); NEUTROPHILS % (AUTO) 81 % (42-75); PLATELET COUNT 125 10^3/uL (130-400); WHITE BLOOD COUNT 12.2 10^3/uL (4.3-11.0)
[2020-09-21 04:11] LABS: POTASSIUM 3.8 MMOL/L (3.6-5.0)
[2020-09-21 04:13] LABS: CALCIUM 7.3 MG/DL (8.5-10.1)
[2020-09-21 04:17] LABS: CREATININE SERUM 2.27 MG/DL (0.60-1.30); PHOSPHORUS 3.5 MG/DL (2.3-4.7)
[2020-09-21 04:44] LABS: ABG BASE EXCESS -0.7 MMOL/L (-2.5-2.5); ABG OXYGEN SATURATION 96 % (94-100); ABG PCO2 33 MMHG (35-45); ABG PH 7.45 (7.37-7.43); ABG PO2 87 MMHG (79-93); ABG TCO2 23.4 MMOL/L (21.0-31.0)
[2020-09-21 04:48] LABS: ALLENS TEST YES-POS; INSPIRED O2 45%; PATIENT TEMP 38.2; VENTILATOR YES
[2020-09-21] MEDS: MAGNESIUM 1 GM/100 ML IVPB 100 ML IV SCH (05:04)
[2020-09-21] MEDS: KCL 20 MEQ TAB (K-DUR) PO SCH (05:04)
[2020-09-21] MEDS: POTASSIUM CL 10MEQ/50ML IVPB 50 ML IV SCH (05:04)
[2020-09-21] MEDS: inSUlin ASPART (NovoLOG) 1 UNIT/0.01 ML (CHARGE PER UNIT) SQ SCH ×4 (05:05→23:52)
--- NOTE | 2020-09-21 05:38 | Pulmonary Progress Note ---
Subjective Time Seen by a Provider: 05:37 Sepsis Event Evaluation Height, Weight, BMI Height: '" Weight: lbs. oz. kg; 30.55 BMI Method: Exam Exam Vital Signs Date Time Temp Pulse Resp B/P (MAP) Pulse Ox O2 Delivery O2 Flow Rate FiO2 09/21/20 04:03 38.0 93 Mechanical Ventilator 45.00 09/21/20 04:00 66 20 102/64 (77) 93 Mechanical Ventilator 45.00 09/21/20 03:33 38.4 65 22 136/81 94 Mechanical Ventilator 45.00 09/21/20 03:32 135/77 09/21/20 03:00 66 20 103/62 (76) 94 Mechanical Ventilator 45.00 09/21/20 02:24 65 22 94 45 09/21/20 02:00 66 20 133/81 (98) 94 Mechanical Ventilator 45.00 09/21/20 01:00 71 26 131/76 (94) 94 Mechanical Ventilator 45.00 09/21/20 00:53 69 09/21/20 00:00 71 26 127/75 (92) 93 Mechanical Ventilator 45.00 09/20/20 23:49 38.4 71 28 153/89 92 Mechanical Ventilator 45.00 09/20/20 23:42 153/89 09/20/20 23:41 38.4 09/20/20 23:33 38.8 71 28 153/89 (110) 92 Mechanical Ventilator 45.00 09/20/20 22:50 67 28 94 45 09/20/20 21:00 70 118/74 (93) 92 09/20/20 20:54 70 127/76 09/20/20 20:00 98 Mechanical Ventilator 50 09/20/20 20:00 68 27 141/82 (98) 93 09/20/20 19:45 69 28 136/80 (99) 93 09/20/20 19:30 68 29 132/77 (100) 93 09/20/20 19:23 37.9 09/20/20 19:15 69 30 129/76 (89) 93 09/20/20 19:00 71 09/20/20 19:00 68 139/92 (117) 89 09/20/20 18:57 69 29 94 45 09/20/20 18:00 67 141/81 (105) 94 Mechanical Ventilator 55.00 09/20/20 17:54 37.2 09/20/20 17:45 67 140/82 (98) 95 09/20/20 17:30 67 143/83 (106) 94 09/20/20 17:15 67 142/79 (101) 95 09/20/20 17:00 69 143/81 (108) 95 Mechanical Ventilator 55.00 09/20/20 16:50 70 138/81 09/20/20 16:45 69 138/81 (104) 94 09/20/20 16:30 69 145/81 (105) 94 09/20/20 16:15 70 143/79 (104) 93 09/20/20 16:00 71 139/77 (102) 93 Mechanical Ventilator 55.00 09/20/20 15:46 39.0 09/20/20 15:46 70 162/90 09/20/20 15:45 70 159/91 (124) 92 09/20/20 15:30 70 157/91 (101) 93 09/20/20 15:15 70 165/89 (118) 93 09/20/20 15:00 70 162/90 (121) 93 Mechanical Ventilator 55.00 09/20/20 14:59 69 31 94 45 09/20/20 14:45 67 164/92 (125) 94 09/20/20 14:30 66 162/93 (125) 93 09/20/20 14:15 66 167/91 (115) 92 09/20/20 14:00 67 158/93 (118) 92 Mechanical Ventilator 55.00 09/20/20 13:49 37.6 09/20/20 13:45 75 157/93 (114) 97 09/20/20 13:42 68 151/92 09/20/20 13:30 67 37 151/92 (118) 97 09/20/20 13:15 68 25 160/91 (110) 98 09/20/20 13:00 66 09/20/20 13:00 69 27 156/96 (125) 97 Mechanical Ventilator 55.00 09/20/20 12:45 68 42 157/92 (118) 97 09/20/20 12:30 67 29 159/91 (118) 97 09/20/20 12:15 68 27 158/87 (113) 97 09/20/20 12:00 67 28 160/92 (114) 96 Mechanical Ventilator 55.00 09/20/20 11:55 36.4 09/20/20 11:40 35.0 09/20/20 11:23 63 29 97 50 09/20/20 11:00 67 28 138/84 (105) 98 Mechanical Ventilator 55.00 09/20/20 10:45 67 28 141/82 (105) 97 09/20/20 10:36 39.3 66 28 135/82 96 Mechanical Ventilator 40.00 09/20/20 10:30 68 31 135/82 (101) 97 09/20/20 10:15 65 28 138/81 (99) 97 09/20/20 10:00 66 28 128/78 (97) 96 Mechanical Ventilator 55.00 09/20/20 09:45 66 28 117/81 (95) 96 09/20/20 09:30 66 31 107/73 (84) 94 09/20/20 09:23 39.3 09/20/20 09:15 70 41 116/83 (92) 99 09/20/20 09:04 68 111/87 09/20/20 09:00 70 35 115/79 (90) 99 Mechanical Ventilator 55.00 09/20/20 08:45 69 34 119/86 (94) 98 09/20/20 08:30 69 40 113/84 (99) 98 09/20/20 08:18 39.3 09/20/20 08:15 68 35 114/86 (95) 98 09/20/20 08:00 68 38 111/87 (93) 98 Mechanical Ventilator 55.00 09/20/20 08:00 98 Mechanical Ventilator 50 09/20/20 07:45 67 26 122/81 (89) 98 09/20/20 07:30 67 25 107/77 (89) 98 09/20/20 07:27 68 27 98 50 09/20/20 07:16 67 108/85 09/20/20 07:15 67 43 108/85 (93) 98 09/20/20 07:00 67 09/20/20 07:00 66 25 115/83 (89) 99 Mechanical Ventilator 55.00 09/20/20 06:45 67 26 113/82 (94) 98 09/20/20 06:30 67 32 111/80 (88) 98 09/20/20 06:15 67 26 112/79 (91) 98 09/20/20 06:00 67 27 112/77 (89) 98 Mechanical Ventilator 55.00 I & O 09/21/20 07:00 Intake Total 1240 ml Output Total 1825 ml Balance -585 ml Height & Weight Height: '" Weight: lbs. oz. kg; 30.55 BMI Method: General Appearance: No Apparent Distress, Obese, Other (intubated and sedated) HEENT: PERRL/EOMI, Other Neck: Supple Respiratory: No Respiratory Distress, Crackles, Other (mechanically ventilated) Cardiovascular: Regular Rate, Rhythm, No Edema, No Murmur Capillary Refill: Less Than 3 Seconds Gastrointestinal: non tender, soft Extremity: Normal Inspection, No Pedal Edema Neurologic/Psychiatric: Other (sedated) Skin: Normal Color, Warm/Dry Results Lab Laboratory Tests 09/20/20 03:39 09/21/20 03:13 Assessment/Plan Assessment/Plan COVID penumonia - Pt intubated through the weekend. -400,/30/06 and 45 % -Decadron -Proning -CVP -COVID dx 5 days ago -Pt does not qualify for remdesivir secondary PNA -Zosyn -jim cultures Acute renal insufficiency - improving -IVF currently LR at 30 -Monitor -Avoid nephrotoxic meds - AsthmaAE -Albuterol -steroids GI/DVT ppx -Lovenox PPX -Pepcid JESSI CRENSHAW DO Sep 21, 2020 05:38
[2020-09-21] MEDS: ENOXAPARIN 80 MG/0.8 ML (LOVENOX) SYR SC SCH (06:11)
--- NOTE | 2020-09-21 06:57 | Diagnostic Imaging Report ---
Indication: Shortness of breath. Comparison: 09/20/2020 Findings: Single view of the chest demonstrates worsening bilateral pulmonary infiltrates with dependent atelectasis. There is no pneumothorax. The heart remains enlarged. No large effusion is seen. Support devices are stable. Impression: 1. Worsening of bilateral pulmonary infiltrates. 2. Stable support lines. Dictated by: Dictated on workstation # [id number]
--- NOTE | 2020-09-21 07:03 | Occ Therapy Progress Note ---
Therapy Progress Note Pt is currently intubated and sedated. OT will monitor pt and initiate tx when pt is more medically stable and able to actively participate in skilled therapy. BEST KIRKLAND Sep 21, 2020 07:03
--- NOTE | 2020-09-21 08:08 | Physical Therapy Progress Note ---
Therapy Progress Note Patient remains sedated and intubated. PT will continue to monitor patient status. ASAEL LABOY PT Sep 21, 2020 08:08
[2020-09-21] MEDS: PANTOPRAZOLE 40 MG (PROTONIX) VIAL IV SCH (08:44)
[2020-09-21] MEDS ORDERED: LACTATED RINGERS 1,000 ML IV SCH (14:45)
[2020-09-21] MEDS ORDERED: NS (IVPB) 250 ML IV ONE (14:45)
[2020-09-21] MEDS ORDERED: NS (IVPB) 250 ML ONE (14:46)
[2020-09-22] VITALS (7 sets, daily range): BP systolic 100–131; BP diastolic 55–71
[2020-09-22] MEDS: PROPOFOL DRIP (ICU) 100 ML IV SCH ×5 (01:23→20:54)
[2020-09-22] MEDS: DexMEDEtomidine PRE MIX 100 ML IV SCH (01:31)
[2020-09-22] MEDS: RT-ALBUTEROL INHALER HFA (VENTOLIN HFA) 18 GM IH SCH ×6 (02:19→22:06)
[2020-09-22] MEDS: PIPERACILLIN/TAZOBACTAM (BULK) 4.5 GM in NS (IVPB) 100 ML IV SCH ×3 (04:17→20:11)
[2020-09-22 04:26] LABS: BASOPHILS % (AUTO) 0 % (0-10); EOSINOPHILS % (AUTO) 0 % (0-10); HEMATOCRIT 37 % (40-54); HEMOGLOBIN 12.2 g/dL (13.3-17.7); LYMPHOCYTES # (AUTO) 0.7 10^3/uL (1.0-4.0); LYMPHOCYTES % (AUTO) 5 % (12-44); MEAN CORPUSCULAR HEMOGLOBIN 30 pg (25-34); MEAN CORPUSCULAR HGB CONC 33 g/dL (32-36); MEAN CORPUSCULAR VOLUME 91 fL (80-99); MEAN PLATELET VOLUME 12.4 fL (9.0-12.2); MONOCYTES # (AUTO) 0.3 10^3/uL (0.0-1.0); MONOCYTES % (AUTO) 3 % (0-12); NEUTROPHILS % (AUTO) 91 % (42-75); PLATELET COUNT 130 10^3/uL (130-400); WHITE BLOOD COUNT 13.2 10^3/uL (4.3-11.0)
[2020-09-22 04:27] LABS: ABG BASE EXCESS -2.2 MMOL/L (-2.5-2.5); ABG OXYGEN SATURATION 93 % (94-100); ABG PCO2 32 MMHG (35-45); ABG PH 7.44 (7.37-7.43); ABG PO2 72 MMHG (79-93); ABG TCO2 22.3 MMOL/L (21.0-31.0)
[2020-09-22 04:28] LABS: ALLENS TEST YES-POS; INSPIRED O2 50%; PATIENT TEMP 37.2; VENTILATOR YES
[2020-09-22 04:37] LABS: POTASSIUM 3.9 MMOL/L (3.6-5.0)
[2020-09-22 04:38] LABS: CALCIUM 7.3 MG/DL (8.5-10.1)
[2020-09-22 04:42] LABS: CREATININE SERUM 1.99 MG/DL (0.60-1.30); PHOSPHORUS 3.5 MG/DL (2.3-4.7)
[2020-09-22 04:58] LABS: BAND NEUTROPHILS 5 %; EOSINOPHILS % (MANUAL) 1 %; LYMPHOCYTES % (MANUAL) 5 %; MONOCYTES % (MANUAL) 1 %; NEUTROPHILS % (MANUAL) 88 %; RBC MORPH NORMAL
[2020-09-22] MEDS: KCL 20 MEQ TAB (K-DUR) PO SCH (05:03)
[2020-09-22] MEDS: POTASSIUM CL 10MEQ/50ML IVPB 50 ML IV SCH (05:03)
[2020-09-22] MEDS: MAGNESIUM 1 GM/100 ML IVPB 100 ML IV SCH (05:03)
--- NOTE | 2020-09-22 05:35 | Pulmonary Progress Note ---
Subjective Time Seen by a Provider: 05:30 Subjective/Events-last exam Sedated on vent. Sepsis Event Evaluation Height, Weight, BMI Height: '" Weight: lbs. oz. kg; 30.55 BMI Method: Exam Exam Vital Signs Date Time Temp Pulse Resp B/P (MAP) Pulse Ox O2 Delivery O2 Flow Rate FiO2 09/22/20 03:04 55 31 94 50 09/22/20 02:19 53 21 92 50 09/22/20 02:00 55 26 129/74 (92) 94 Mechanical Ventilator 50.00 09/22/20 01:31 55 118/73 09/22/20 01:25 56 09/22/20 01:23 116/69 09/22/20 01:00 53 26 130/78 (95) 90 Mechanical Ventilator 50.00 09/22/20 00:00 55 37 130/76 (94) 96 Mechanical Ventilator 50.00 09/21/20 23:38 36.6 09/21/20 23:00 55 28 122/74 (90) 95 Mechanical Ventilator 50.00 09/21/20 22:00 56 27 101/58 (72) 93 Mechanical Ventilator 50.00 09/21/20 21:41 53 111/70 09/21/20 21:34 52 27 94 50 09/21/20 21:00 53 28 109/70 (83) 92 Mechanical Ventilator 50.00 09/21/20 20:35 Mechanical Ventilator 50.00 09/21/20 20:00 55 27 94/65 (75) 88 Mechanical Ventilator 40.00 09/21/20 20:00 87 Mechanical Ventilator 40 09/21/20 19:55 54 27 89/64 (72) 90 Mechanical Ventilator 40.00 09/21/20 19:55 89/64 09/21/20 19:21 36.3 09/21/20 19:15 52 26 92 40 09/21/20 19:00 52 25 119/76 (90) 92 Mechanical Ventilator 40.00 09/21/20 19:00 53 09/21/20 18:00 53 24 133/89 (104) 93 Mechanical Ventilator 40.00 09/21/20 17:38 52 25 155/87 94 Mechanical Ventilator 45.00 09/21/20 17:24 35.6 52 36.7 36.2 09/21/20 17:00 51 23 162/93 (116) 95 Mechanical Ventilator 40.00 09/21/20 16:00 50 25 164/92 (116) 94 Mechanical Ventilator 40.00 09/21/20 15:14 55 22 149/88 (108) 93 Mechanical Ventilator 40.00 09/21/20 15:05 35.6 55 22 149/88 97 Mechanical Ventilator 09/21/20 15:00 55 24 168/94 (118) 97 Mechanical Ventilator 45.00 09/21/20 14:32 57 27 96 45 09/21/20 14:00 60 24 141/87 (105) 85 Mechanical Ventilator 45.00 09/21/20 13:56 62 153/95 09/21/20 13:56 37.6 62 24 153/95 97 Mechanical Ventilator 45.00 09/21/20 13:00 62 24 153/95 (114) 97 Mechanical Ventilator 45.00 09/21/20 12:58 60 09/21/20 12:02 37.6 09/21/20 12:00 65 23 157/96 (116) 100 Mechanical Ventilator 45.00 09/21/20 11:00 78 27 151/97 (115) 100 Mechanical Ventilator 45.00 09/21/20 10:07 62 26 93 45 09/21/20 10:00 60 25 111/78 (89) 93 Mechanical Ventilator 45.00 09/21/20 09:00 69 28 149/82 (104) 92 Mechanical Ventilator 45.00 09/21/20 08:45 98 Mechanical Ventilator 45 09/21/20 08:44 63 153/82 09/21/20 08:00 61 26 153/82 (105) 94 Mechanical Ventilator 45.00 09/21/20 07:47 38.0 09/21/20 07:06 63 28 93 45 09/21/20 07:00 64 26 150/85 (106) 94 Mechanical Ventilator 45.00 09/21/20 06:49 38.0 69 20 144/83 93 Mechanical Ventilator 45.00 09/21/20 06:44 66 09/21/20 06:00 69 20 144/83 (103) 93 Mechanical Ventilator 45.00 I & O 09/22/20 07:00 Intake Total 1620 ml Output Total 785 ml Balance 835 ml Height & Weight Height: '" Weight: lbs. oz. kg; 30.55 BMI Method: General Appearance: No Apparent Distress, Obese, Other (intubated and sedated) HEENT: PERRL/EOMI, Other Neck: Supple Respiratory: No Respiratory Distress, Crackles, Other (mechanically ventilated) Cardiovascular: Regular Rate, Rhythm, No Edema, No Murmur Capillary Refill: Less Than 3 Seconds Gastrointestinal: non tender, soft Extremity: Normal Inspection, No Pedal Edema Neurologic/Psychiatric: Other (sedated) Skin: Normal Color, Warm/Dry Results Lab Laboratory Tests 09/21/20 03:13 09/22/20 04:11 Assessment/Plan Assessment/Plan COVID penumonia - Pt intubated through the weekend. -400,// and 50 % -Secondary to fever and worsening leukocytosis start Zyvox and repeat jim cultures. -Decadron -Proning -CVP -COVID dx 5 days ago -Pt does not qualify for remdesivir secondary PNA -Zosyn and eraxis -Add zyvox secondary to fever and worsening leukocytosis -PCT is 4.73 09/21 -jim cultures Acute renal insufficiency - improving -IVF currently LR at 75 -Monitor -Avoid nephrotoxic meds - AsthmaAE -Albuterol -steroids GI/DVT ppx -Lovenox theraputic dosing secondary to DDIMER -JESSI Guerra DO Sep 22, 2020 05:35
[2020-09-22] MEDS: ENOXAPARIN 80 MG/0.8 ML (LOVENOX) SYR SC SCH (06:31)
[2020-09-22] MEDS: fentaNYL DRIP PRE-MIX 250 ML IV SCH ×3 (06:31→20:11)
[2020-09-22] MEDS: inSUlin ASPART (NovoLOG) 1 UNIT/0.01 ML (CHARGE PER UNIT) SQ SCH ×4 (06:37→23:35)
[2020-09-22] MEDS: MIDAZOLAM DRIP PRE-MIX 100 ML IV SCH ×2 (07:35→18:26)
[2020-09-22] MEDS ORDERED: MIDAZOLAM DRIP PRE-MIX 100 ML IV ONE (07:47)
[2020-09-22] MEDS ORDERED: MIDAZOLAM 5 MG/5 ML (VERSED) VIAL ONE (07:48)
--- NOTE | 2020-09-22 07:54 | Diagnostic Imaging Report ---
CHEST 1 VIEW, AP/PA ONLY Indication: Dyspnea Comparison: 09/21/2020 Findings: ET tube has tip 2.5 cm above the ashli. Enteric tube has tip terminating in the proximal stomach. Stable right IJ central venous catheter. Improving but persistent bilateral pulmonary opacities. No pneumothorax. Potential trace bilateral pleural effusions. Stable cardiac silhouette. Impression: 1. ET tube has been mildly advanced and has tip 2.5 cm above the ashli. 2. Improving bilateral pulmonary opacities. Dictated by: Dictated on workstation # [id number]
--- NOTE | 2020-09-22 08:01 | Physical Therapy Progress Note ---
Therapy Progress Note Patient remains sedated and intubated. PT will continue to monitor patient status. ASAEL LABOY PT Sep 22, 2020 08:01
[2020-09-22] MEDS ORDERED: LACTATED RINGERS 1,000 ML IV SCH (08:15)
[2020-09-22 08:23] LABS: BILIRUBIN,URINE NEGATIVE (NEGATIVE); CLARITY,URINE CLEAR; COLOR,URINE YELLOW; GLUCOSE, URINE (UA) NEGATIVE (NEGATIVE); KETONES,URINE NEGATIVE (NEGATIVE); LEUKOCYTE ESTERASE ,URINE TRACE (NEGATIVE); NITRITE,URINE NEGATIVE (NEGATIVE); PH,URINE 5.5 (5-9); PROTEIN,URINE 1+ (NEGATIVE)
[2020-09-22 08:36] LABS: AMORPHOUS SEDIMENT,UR RARE AMOR URATES /LPF; BACTERIA,URINE TRACE /HPF; RBC,URINE >100 /HPF; SQUAMOUS EPITHELIAL CELL,UR 0-2 /HPF; URIC ACID CRYSTALS,URINE FEW /LPF
--- NOTE | 2020-09-22 08:39 | Diagnostic Imaging Report ---
Indication: Increased shortness of air COMPARISON: Imaging from the same date TECHNIQUE: Single radiograph the chest dated 09/22/2020 FINDINGS: Endotracheal tube and right IJ central venous catheter are again identified. The cardiac silhouette is enlarged, though stable. Significant bilateral pulmonary infiltrates are again identified, appearing minimally worse since the prior examination. Tiny bilateral pleural effusions are again noted, appearing similar given differences in positioning. No pneumothorax. No new acute osseous abnormality. IMPRESSION: Slightly worsening significant bilateral pulmonary infiltrates with associated tiny pleural effusions. Unchanged lines and tubes. Dictated by: Dictated on workstation # [id number]
[2020-09-22] MEDS: PANTOPRAZOLE 40 MG (PROTONIX) VIAL IV SCH (08:56)
[2020-09-22] MEDS: LACTATED RINGERS 1,000 ML IV SCH ×2 (09:10→23:35)
[2020-09-22] MEDS: LINEZOLID IVPB 300 ML IV SCH ×2 (09:15→20:53)
[2020-09-22 09:37] LABS: ABG BASE EXCESS -3.5 MMOL/L (-2.5-2.5); ABG OXYGEN SATURATION 86 % (94-100); ABG PCO2 36 MMHG (35-45); ABG PH 7.38 (7.37-7.43); ABG PO2 62 MMHG (79-93); ABG TCO2 21.6 MMOL/L (21.0-31.0); ALLENS TEST YES-POS; INSPIRED O2 80; VENTILATOR YES
[2020-09-22 09:38] LABS: PATIENT TEMP 100.3
[2020-09-22] MEDS ORDERED: DexMEDEtomidine PRE MIX 100 ML IV ONE (10:11)
[2020-09-22] MEDS: ARTIFICIAL TEARS OINT (LACRI-LUBE) 3.5 GM TUBE OU SCH (22:27)
[2020-09-23] MEDS: PROPOFOL DRIP (ICU) 100 ML IV SCH ×5 (00:30→23:58)
[2020-09-23 01:50] VITALS: BP 122/55
[2020-09-23] MEDS: RT-ALBUTEROL INHALER HFA (VENTOLIN HFA) 18 GM IH SCH ×6 (01:50→22:40)
[2020-09-23] MEDS: fentaNYL DRIP PRE-MIX 250 ML IV SCH ×5 (02:30→21:58)
[2020-09-23 02:42] LABS: ABG BASE EXCESS -4.1 MMOL/L (-2.5-2.5); ABG OXYGEN SATURATION 93 % (94-100); ABG PCO2 40 MMHG (35-45); ABG PO2 68 MMHG (79-93); ABG TCO2 22.4 MMOL/L (21.0-31.0); BASOPHILS % (AUTO) 0 % (0-10); EOSINOPHILS # (AUTO) 0.1 10^3/uL (0.0-0.3); EOSINOPHILS % (AUTO) 1 % (0-10); HEMATOCRIT 33 % (40-54); HEMOGLOBIN 10.3 g/dL (13.3-17.7); LYMPHOCYTES # (AUTO) 0.4 10^3/uL (1.0-4.0); LYMPHOCYTES % (AUTO) 3 % (12-44); MEAN CORPUSCULAR HEMOGLOBIN 29 pg (25-34); MEAN CORPUSCULAR HGB CONC 31 g/dL (32-36); MEAN CORPUSCULAR VOLUME 94 fL (80-99); MEAN PLATELET VOLUME 12.3 fL (9.0-12.2); MONOCYTES # (AUTO) 0.1 10^3/uL (0.0-1.0); MONOCYTES % (AUTO) 1 % (0-12); NEUTROPHILS % (AUTO) 92 % (42-75); PLATELET COUNT 133 10^3/uL (130-400); WHITE BLOOD COUNT 11.9 10^3/uL (4.3-11.0)
[2020-09-23 02:46] LABS: ALLENS TEST POSITIVE; INSPIRED O2 65; PATIENT TEMP 35.9; VENTILATOR YES
[2020-09-23 02:48] LABS: ABG PH 7.33 (7.37-7.43)
[2020-09-23 02:55] LABS: POTASSIUM 3.9 MMOL/L (3.6-5.0)
[2020-09-23 02:56] LABS: CALCIUM 7.2 MG/DL (8.5-10.1)
[2020-09-23 03:00] LABS: PHOSPHORUS 3.8 MG/DL (2.3-4.7)
[2020-09-23 03:01] LABS: CREATININE SERUM 1.88 MG/DL (0.60-1.30)
[2020-09-23 03:03] LABS: MAGNESIUM 2.7 MG/DL (1.6-2.4)
[2020-09-23] MEDS: PIPERACILLIN/TAZOBACTAM (BULK) 4.5 GM in NS (IVPB) 100 ML IV SCH ×3 (04:10→20:29)
[2020-09-23] MEDS: MIDAZOLAM DRIP PRE-MIX 100 ML IV SCH ×3 (04:12→23:58)
[2020-09-23] MEDS ORDERED: FUROSEMIDE 40 MG/4 ML INJ (LASIX) ONE (04:12)
[2020-09-23] MEDS ORDERED: ROCURONIUM 10 MG/ML 5 ML SYRINGE IV ONE ×2 (04:25→04:30)
[2020-09-23] MEDS ORDERED: FUROSEMIDE 40 MG/4 ML INJ (LASIX) IVP ONE (04:30)
--- NOTE | 2020-09-23 05:27 | Pulmonary Progress Note ---
Subjective Date Seen by a Provider: Sep 23, 2020 Time Seen by a Provider: 05:21 Subjective/Events-last exam Pt became more hypoxic after supining. Pt reproned. Sepsis Event Evaluation Height, Weight, BMI Height: '" Weight: lbs. oz. kg; 30.55 BMI Method: Focused Exam Lactate Level 09/22/20 06:20: Lactic Acid Level 3.74*H 09/22/20 09:05: Lactic Acid Level 2.61*H 09/22/20 11:50: Lactic Acid Level 2.17*H Exam Exam Vital Signs Date Time Temp Pulse Resp B/P (MAP) Pulse Ox O2 Delivery O2 Flow Rate FiO2 09/23/20 05:00 114 20 107/57 (74) 100 Mechanical Ventilator 90.00 09/23/20 04:39 Mechanical Ventilator 90.00 09/23/20 04:12 97 149/72 09/23/20 04:00 97 22 100/50 (67) 89 Mechanical Ventilator 100.00 09/23/20 03:00 86 13 129/63 (88) 97 Mechanical Ventilator 65.00 09/23/20 02:27 95 Mechanical Ventilator 65.00 09/23/20 02:26 118/59 09/23/20 02:00 84 13 121/62 (83) 95 Mechanical Ventilator 75.00 09/23/20 01:50 84 25 98 75 09/23/20 00:52 83 09/23/20 00:12 Mechanical Ventilator 75.00 09/23/20 00:00 86 14 128/63 (88) 87 Mechanical Ventilator 70.00 09/22/20 23:35 94 Mechanical Ventilator 70.00 09/22/20 23:00 81 20 123/60 (77) 99 Mechanical Ventilator 80.00 09/22/20 22:52 36.6 09/22/20 22:06 80 22 100 75 09/22/20 22:00 81 20 117/64 (81) 100 Mechanical Ventilator 80.00 09/22/20 21:00 82 19 103/62 (76) 100 Mechanical Ventilator 80.00 09/22/20 20:54 113/60 09/22/20 20:11 96/65 09/22/20 20:09 100 Mechanical Ventilator 80.00 09/22/20 20:00 100 Mechanical Ventilator 90 09/22/20 19:45 84 14 90/61 (71) 100 Mechanical Ventilator 100.00 09/22/20 19:36 36.3 09/22/20 19:30 85 20 92/58 (73) 100 Mechanical Ventilator 100.00 09/22/20 19:15 85 16 96/64 (76) 100 Mechanical Ventilator 100.00 09/22/20 19:06 84 20 100 Mechanical Ventilator 100.00 09/22/20 19:00 85 09/22/20 19:00 84 9 102/61 (71) 99 Mechanical Ventilator 100.00 09/22/20 18:45 82 10 97/63 (77) 100 09/22/20 18:30 79 13 104/62 (72) 100 09/22/20 18:26 76 22 105/62 09/22/20 18:22 76 22 100 100 09/22/20 18:15 82 26 105/62 (72) 09/22/20 18:06 83 23 82 09/22/20 18:00 82 27 106/60 (75) 83 Mechanical Ventilator 80.00 09/22/20 18:00 82 25 106/60 (74) 84 09/22/20 17:45 82 24 102/65 (77) 87 09/22/20 17:30 80 20 103/59 (75) 98 09/22/20 17:15 78 23 105/58 (71) 99 09/22/20 17:08 86 18 98/60 (70) 86 09/22/20 17:06 86 16 86 09/22/20 17:00 85 24 98/60 (73) 86 Mechanical Ventilator 80.00 09/22/20 17:00 85 20 89/55 (68) 86 09/22/20 16:45 87 27 99/57 (67) 87 09/22/20 16:30 86 20 94/59 (74) 88 09/22/20 16:15 87 21 102/54 (72) 89 09/22/20 16:06 87 25 89 09/22/20 16:00 87 24 95/59 (71) 90 Mechanical Ventilator 80.00 09/22/20 15:48 36.6 09/22/20 15:18 83 108/62 09/22/20 15:00 87 24 95/59 (71) 90 Mechanical Ventilator 80.00 09/22/20 14:52 83 22 91 100 09/22/20 14:00 84 21 111/66 (81) 92 Mechanical Ventilator 80.00 09/22/20 13:00 84 30 112/61 (78) 92 Mechanical Ventilator 80.00 09/22/20 12:37 81 09/22/20 11:53 37.3 09/22/20 11:52 38.0 80 28 108/60 (76) 98 Mechanical Ventilator 100.00 09/22/20 11:00 83 28 111/58 (75) 98 Mechanical Ventilator 80.00 09/22/20 10:15 81 34 88 80 09/22/20 10:00 78 119/60 (79) 88 Mechanical Ventilator 80.00 09/22/20 09:00 38.0 85 34 112/55 (74) 91 Mechanical Ventilator 80.00 09/22/20 08:00 120 41 128/60 (82) 94 Mechanical Ventilator 50.00 09/22/20 08:00 92 Mechanical Ventilator 100 09/22/20 07:54 122 152/59 09/22/20 07:35 83 22 108/62 09/22/20 07:08 68 42 95 50 09/22/20 07:00 73 46 100/55 (70) 94 Mechanical Ventilator 50.00 09/22/20 06:43 68 09/22/20 06:00 65 45 125/89 (101) 88 Mechanical Ventilator 50.00 I & O 09/23/20 07:00 Intake Total 760 ml Output Total 1700 ml Balance -940 ml Height & Weight Height: '" Weight: lbs. oz. kg; 30.55 BMI Method: General Appearance: Moderate Distress, Obese, Other (intubated and sedated) HEENT: PERRL/EOMI, Other Neck: Supple Respiratory: No Respiratory Distress, Crackles, Other (mechanically ventilated) Cardiovascular: Regular Rate, Rhythm, No Edema, No Murmur Capillary Refill: Less Than 3 Seconds Gastrointestinal: non tender, soft Extremity: Normal Inspection, No Pedal Edema Neurologic/Psychiatric: Other (sedated) Skin: Normal Color, Warm/Dry Results Lab Laboratory Tests 09/22/20 04:11 09/23/20 02:20 Assessment/Plan Assessment/Plan COVID penumonia - Pt intubated through the weekend. -400,// and 90 -PEEP is now 18 secondary to persistent hypoxia this morning and requiring 100% oxygen. -50mg of Rocuronium given - Zyvox, zosyn and eraxis. repeat jim cultures. - pending -Decadron -Proning -CVP -Pt does not qualify for remdesivir secondary PNA -Zosyn and eraxis and zyvox -PCT is 4.73 09/21 -jim cultures Hypernatremia -Change LR to 1/2 NS -Give 100cc of free water Q4 per OG tube Acute renal insufficiency - improving -IVF currently LR at 75 -Monitor -Avoid nephrotoxic meds - AsthmaAE -Albuterol -steroids GI/DVT ppx -Lovenox theraputic dosing secondary to DDIMER -JESSI Guerra DO Sep 23, 2020 05:27
[2020-09-23] MEDS: MAGNESIUM 1 GM/100 ML IVPB 100 ML IV SCH (06:13)
[2020-09-23] MEDS: inSUlin ASPART (NovoLOG) 1 UNIT/0.01 ML (CHARGE PER UNIT) SQ SCH ×3 (06:13→17:55)
[2020-09-23] MEDS: KCL 20 MEQ TAB (K-DUR) PO SCH (06:13)
[2020-09-23] MEDS: POTASSIUM CL 10MEQ/50ML IVPB 50 ML IV SCH (06:13)
[2020-09-23] MEDS: ENOXAPARIN 80 MG/0.8 ML (LOVENOX) SYR SC SCH (06:34)
[2020-09-23] MEDS: 1/2 NS IV SOLUTION 1,000 ML IV SCH ×2 (06:39→16:30)
[2020-09-23 06:53] VITALS: BP 88/51
[2020-09-23] MEDS: PANTOPRAZOLE 40 MG (PROTONIX) VIAL IV SCH (07:51)
[2020-09-23] MEDS: LINEZOLID IVPB 300 ML IV SCH ×2 (07:51→20:29)
--- NOTE | 2020-09-23 07:51 | Diagnostic Imaging Report ---
Indication: Dyspnea Portable chest shows normal heart size and vascularity. There are bilateral patchy infiltrates which appear slightly worse compared to the 09/22/2020 study. There is no effusion or pneumothorax. The support lines and tubes remain in place. IMPRESSION: There has been an increase in the bilateral infiltrates with no consolidations seen at this time. Dictated by: Dictated on workstation # [id number]
--- NOTE | 2020-09-23 08:23 | Physical Therapy Progress Note ---
Therapy Progress Note Patient remains sedated and intubated. PT will continue to monitor patient status. ASAEL LABOY PT Sep 23, 2020 08:23
[2020-09-23] MEDS: ARTIFICIAL TEARS OINT (LACRI-LUBE) 3.5 GM TUBE OU SCH ×2 (09:07→20:29)
[2020-09-23] MEDS ORDERED: LACTATED RINGERS 500 ML IV ONE ×2 (10:00→14:00)
[2020-09-23 10:12] VITALS: BP 93/60
[2020-09-23 14:04] VITALS: BP 92/58
[2020-09-23 19:02] VITALS: BP 90/51
[2020-09-23 22:40] VITALS: BP 105/57
[2020-09-24] MEDS: inSUlin ASPART (NovoLOG) 1 UNIT/0.01 ML (CHARGE PER UNIT) SQ SCH ×4 (00:01→17:33)
[2020-09-24] MEDS ORDERED: LACTATED RINGERS 500 ML IV SCH (01:00)
[2020-09-24] MEDS ORDERED: ROCURONIUM 10 MG/ML 5 ML SYRINGE IV ONE ×3 (01:00→11:00)
[2020-09-24] MEDS: 1/2 NS IV SOLUTION 1,000 ML IV SCH (01:39)
[2020-09-24 02:13] LABS: ABG BASE EXCESS -7.2 MMOL/L (-2.5-2.5); ABG OXYGEN SATURATION 97 % (94-100); ABG PCO2 48 MMHG (35-45); ABG PO2 93 MMHG (79-93)
[2020-09-24 02:15] LABS: ABG PH 7.22 (7.37-7.43); ALLENS TEST YES-POS
[2020-09-24 02:16] LABS: INSPIRED O2 65%; PATIENT TEMP 35.6; VENTILATOR YES
[2020-09-24 02:32] LABS: BASOPHILS # (AUTO) 0.1 10^3/uL (0.0-0.1); BASOPHILS % (AUTO) 0 % (0-10); EOSINOPHILS % (AUTO) 0 % (0-10); HEMATOCRIT 29 % (40-54); LYMPHOCYTES # (AUTO) 0.2 10^3/uL (1.0-4.0); LYMPHOCYTES % (AUTO) 2 % (12-44); MEAN CORPUSCULAR HEMOGLOBIN 30 pg (25-34); MEAN CORPUSCULAR HGB CONC 31 g/dL (32-36); MEAN CORPUSCULAR VOLUME 97 fL (80-99); MEAN PLATELET VOLUME 11.7 fL (9.0-12.2); MONOCYTES # (AUTO) 0.1 10^3/uL (0.0-1.0); MONOCYTES % (AUTO) 1 % (0-12); NEUTROPHILS # (AUTO) 14.6 10^3/uL (1.8-7.8); NEUTROPHILS % (AUTO) 96 % (42-75); PLATELET COUNT 126 10^3/uL (130-400); WHITE BLOOD COUNT 15.2 10^3/uL (4.3-11.0)
[2020-09-24 02:48] LABS: POTASSIUM 4.8 MMOL/L (3.6-5.0)
[2020-09-24 02:50] VITALS: BP 94/54
[2020-09-24] MEDS: RT-ALBUTEROL INHALER HFA (VENTOLIN HFA) 18 GM IH SCH ×6 (02:50→22:17)
[2020-09-24 02:53] LABS: PHOSPHORUS 7.1 MG/DL (2.3-4.7)
[2020-09-24 02:54] LABS: CREATININE SERUM 3.14 MG/DL (0.60-1.30)
[2020-09-24 02:56] LABS: MAGNESIUM 2.5 MG/DL (1.6-2.4)
[2020-09-24] MEDS: fentaNYL DRIP PRE-MIX 250 ML IV SCH ×4 (03:45→21:10)
[2020-09-24] MEDS: KCL 20 MEQ TAB (K-DUR) PO SCH (04:22)
[2020-09-24] MEDS: POTASSIUM CL 10MEQ/50ML IVPB 50 ML IV SCH (04:22)
[2020-09-24] MEDS: MAGNESIUM 1 GM/100 ML IVPB 100 ML IV SCH (04:22)
[2020-09-24] MEDS ORDERED: LACTATED RINGERS 1,000 ML IV SCH ×2 (04:45)
--- NOTE | 2020-09-24 04:45 | Pulmonary Progress Note ---
Subjective Time Seen by a Provider: 04:40 Subjective/Events-last exam Pt is doing much worse today. Sepsis Event Evaluation Height, Weight, BMI Height: '" Weight: lbs. oz. kg; 30.55 BMI Method: Focused Exam Lactate Level 09/22/20 06:20: Lactic Acid Level 3.74*H 09/22/20 09:05: Lactic Acid Level 2.61*H 09/22/20 11:50: Lactic Acid Level 2.17*H Exam Exam Vital Signs Date Time Temp Pulse Resp B/P (MAP) Pulse Ox O2 Delivery O2 Flow Rate FiO2 09/24/20 04:21 35.7 09/24/20 04:00 71 16 87/48 (61) 98 Mechanical Ventilator 65.00 09/24/20 03:00 66 18 101/62 (75) 100 Mechanical Ventilator 65.00 09/24/20 02:50 66 22 100 80 09/24/20 02:00 61 20 95/56 (69) 96 Mechanical Ventilator 65.00 09/24/20 01:19 69 09/24/20 01:00 66 20 103/51 (68) 94 Mechanical Ventilator 65.00 09/24/20 00:23 36.1 Mechanical Ventilator 65.00 09/24/20 00:06 Mechanical Ventilator 70.00 09/24/20 00:00 65 20 94/56 (69) 94 Mechanical Ventilator 75.00 09/23/20 23:58 65 19 98/56 09/23/20 23:58 65 98/56 09/23/20 23:00 65 19 98/56 (70) 93 Mechanical Ventilator 75.00 09/23/20 22:40 66 22 99 80 09/23/20 22:00 67 20 97/58 (71) 97 Mechanical Ventilator 75.00 09/23/20 21:41 Mechanical Ventilator 75.00 09/23/20 21:00 68 23 103/60 (74) 100 Mechanical Ventilator 80.00 09/23/20 20:00 70 16 97/57 (70) 100 Mechanical Ventilator 80.00 09/23/20 20:00 95 Mechanical Ventilator 80 09/23/20 19:52 Mechanical Ventilator 80.00 09/23/20 19:35 36.0 73 20 90/53 (65) 100 Mechanical Ventilator 70.00 09/23/20 19:10 67 09/23/20 19:02 77 21 95 80 1/13/21 18:00 70 20 90/59 (69) 98 Mechanical Ventilator 80.00 09/23/20 17:00 70 19 89/53 (65) 89 Mechanical Ventilator 80.00 09/23/20 16:00 72 19 90/64 (73) 93 Mechanical Ventilator 80.00 09/23/20 15:43 35.8 09/23/20 15:00 74 18 91/61 (71) 90 Mechanical Ventilator 80.00 09/23/20 14:04 77 24 91 80 09/23/20 14:00 79 20 92/58 (69) 93 Mechanical Ventilator 80.00 09/23/20 13:00 81 19 96/59 (71) 91 Mechanical Ventilator 80.00 09/23/20 12:30 82 96/56 09/23/20 12:00 84 17 93/62 (72) 91 Mechanical Ventilator 80.00 09/23/20 11:53 36.0 09/23/20 11:00 87 20 99/57 (71) 93 Mechanical Ventilator 80.00 09/23/20 10:12 95 23 90 80 09/23/20 10:00 98 18 93/60 (71) 88 Mechanical Ventilator 80.00 09/23/20 09:10 102 87/54 09/23/20 09:00 105 20 87/54 (65) 92 Mechanical Ventilator 80.00 09/23/20 08:47 99 Mechanical Ventilator 80.00 09/23/20 08:43 106 84/60 09/23/20 08:00 111 24 93/68 (76) 90 Mechanical Ventilator 70.00 09/23/20 07:48 90 Mechanical Ventilator 80 09/23/20 07:44 36.4 09/23/20 07:00 114 20 89/54 (66) 93 Mechanical Ventilator 70.00 09/23/20 06:53 112 22 92 70 09/23/20 06:44 115 09/23/20 06:31 99 Mechanical Ventilator 70.00 09/23/20 06:00 111 26 99/60 (73) 100 Mechanical Ventilator 90.00 09/23/20 05:00 114 20 107/57 (74) 100 Mechanical Ventilator 90.00 I & O 09/24/20 07:00 Intake Total 3650 ml Output Total 465 ml Balance 3185 ml Height & Weight Height: '" Weight: lbs. oz. kg; 30.55 BMI Method: General Appearance: Obese, Other (intubated and sedated) HEENT: PERRL/EOMI, Other Neck: Supple Respiratory: No Respiratory Distress, Crackles, Other (mechanically ventilated) Cardiovascular: Regular Rate, Rhythm, No Edema, No Murmur Capillary Refill: Less Than 3 Seconds Gastrointestinal: non tender, soft Extremity: Normal Inspection, No Pedal Edema Neurologic/Psychiatric: Other (sedated) Skin: Normal Color, Warm/Dry Results Lab Laboratory Tests 09/23/20 02:20 09/24/20 02:15 Assessment/Plan Assessment/Plan COVID penumonia - Pt intubated through the weekend. -350,// and 65% -50mg of Rocuronium given -Fentanyl 200 versed 6 and propofol at 20 - Zyvox, zosyn and eraxis. repeat jim cultures. - pending -Decadron -Proning -CVP -Pt does not qualify for remdesivir Worsening renal failure with hyperphos and metabolic acidosis -Will try to transfer for possible HD if family consents. -I called and discussed with family. They are going to discuss and call us back -Pt has a very poor prognosis. -Give a liter bolus over 2hours then another liter of LR over 4hours -Start Bicarb gtt and give 2amps IV Bicarb. secondary PNA - worsening leukocytosis -Check Cdiff -D/C rectal tube -Zosyn and zyvox -Change Zosyn to Merrem -S/P Eraxis -PCT is 4.73 09/21 -jim cultures Acute renal insufficiency - improving -IVF currently LR at 75 -Monitor -Avoid nephrotoxic meds - AsthmaAE -Albuterol -steroids GI/DVT ppx -Lovenox theraputic dosing secondary to DDIMER -Pepcid UPDATE 0540: family called back they do not want pt transferred for HD. 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 They understand how critical pt is and they understand what DNR status is. Critical Care: Critically Ill Patient Time spent with patient (mins): 60 JESSI CRENSHAW DO Sep 24, 2020 04:45
[2020-09-24] MEDS ORDERED: SODIUM BICARB 8.4% 50 MEQ/50 ML VIAL IV ONE (05:00)
[2020-09-24] MEDS ORDERED: VASOPRESSIN INJECTION 20 UNIT in NS (IVPB) 100 ML IV SCH (05:00)
[2020-09-24] MEDS ORDERED: SODIUM BICARBONATE 8.4% VIAL 100 MEQ in 1/2 NS IV SOLUTION 1,000 ML IV SCH (05:00)
[2020-09-24] MEDS ORDERED: 1/2 NS IV SOLUTION 1,000 ML IV ONE (05:15)
[2020-09-24] MEDS: MEROPENEM 500 MG in WATER (STERILE) FOR INJECTION 10 ML IV SCH ×2 (05:42→17:39)
[2020-09-24] MEDS: ENOXAPARIN 80 MG/0.8 ML (LOVENOX) SYR SC SCH (05:56)
[2020-09-24 07:23] VITALS: BP 89/53
[2020-09-24] MEDS: LACTATED RINGERS 1,000 ML IV SCH ×4 (07:58→16:29)
[2020-09-24] MEDS: NOREPINEPHRINE 4 MG/250 ML 250 ML IV SCH ×3 (07:58→23:42)
[2020-09-24] MEDS: PANTOPRAZOLE 40 MG (PROTONIX) VIAL IV SCH (07:59)
[2020-09-24] MEDS: ARTIFICIAL TEARS OINT (LACRI-LUBE) 3.5 GM TUBE OU SCH ×8 (07:59→21:02)
[2020-09-24] MEDS: CALCIUM ACETATE 667 MG CAP (PHOSLO) PO SCH ×3 (07:59→17:39)
[2020-09-24] MEDS: PROPOFOL DRIP (ICU) 100 ML IV SCH ×3 (08:00→20:43)
[2020-09-24] MEDS: LINEZOLID IVPB 300 ML IV SCH ×2 (08:00→21:02)
--- NOTE | 2020-09-24 08:00 | Physical Therapy Progress Note ---
Therapy Progress Note Patient remains sedated and intubated. PT will continue to monitor patient status. ASAEL LABOY PT Sep 24, 2020 08:00
--- NOTE | 2020-09-24 08:58 | Diagnostic Imaging Report ---
EXAMINATION: Chest radiograph, portable AP view. DATE: 09/24/2020 4:35 AM INDICATION: 64-year-old male, dyspnea. COMPARISON: September 23, 2020. FINDINGS: The endotracheal tube is approximately 2.9 cm above the ashli. The nasogastric tube is at the level of the proximal stomach. The right internal jugular central venous line is at the level of the mid SVC. Stable overall appearance of the cardiomediastinal silhouette. There is no identified pneumothorax. There is multifocal bilateral lung consolidation which is unchanged. IMPRESSION: 1. Extensive multifocal bilateral lung consolidation which is unchanged. 2. Support lines and tubes as above. Dictated by: Dictated on workstation # [id number]
[2020-09-24 10:29] VITALS: BP 131/61
[2020-09-24] MEDS: SODIUM BICARBONATE 8.4% VIAL 100 MEQ in 1/2 NS IV SOLUTION 1,000 ML IV SCH ×2 (13:59→23:42)
[2020-09-24] MEDS: MIDAZOLAM DRIP PRE-MIX 100 ML IV SCH (14:03)
[2020-09-24 14:52] VITALS: BP 110/68
[2020-09-24 19:04] VITALS: BP 119/71
[2020-09-24 22:17] VITALS: BP 122/71
[2020-09-25] MEDS: ARTIFICIAL TEARS OINT (LACRI-LUBE) 3.5 GM TUBE OU SCH ×14 (00:45→21:50)
[2020-09-25] MEDS: inSUlin ASPART (NovoLOG) 1 UNIT/0.01 ML (CHARGE PER UNIT) SQ SCH ×4 (00:45→17:15)
[2020-09-25] MEDS: CISATRACURIUM INJECTION 100 MG in NS (IVPB) 200 ML IV SCH ×4 (02:33→21:53)
[2020-09-25 02:35] LABS: ABG BASE EXCESS -1.1 MMOL/L (-2.5-2.5); ABG OXYGEN SATURATION 98 % (94-100); ABG PCO2 51 MMHG (35-45); ABG PO2 105 MMHG (79-93); ABG TCO2 26.3 MMOL/L (21.0-31.0)
[2020-09-25 02:36] LABS: BASOPHILS % (AUTO) 0 % (0-10); EOSINOPHILS % (AUTO) 0 % (0-10); HEMATOCRIT 27 % (40-54); HEMOGLOBIN 8.4 g/dL (13.3-17.7); LYMPHOCYTES # (AUTO) 0.2 10^3/uL (1.0-4.0); LYMPHOCYTES % (AUTO) 2 % (12-44); MEAN CORPUSCULAR HEMOGLOBIN 30 pg (25-34); MEAN CORPUSCULAR HGB CONC 31 g/dL (32-36); MEAN CORPUSCULAR VOLUME 95 fL (80-99); MEAN PLATELET VOLUME 11.4 fL (9.0-12.2); MONOCYTES # (AUTO) 0.1 10^3/uL (0.0-1.0); MONOCYTES % (AUTO) 1 % (0-12); NEUTROPHILS # (AUTO) 11.5 10^3/uL (1.8-7.8); NEUTROPHILS % (AUTO) 96 % (42-75); PLATELET COUNT 137 10^3/uL (130-400)
[2020-09-25 02:40] LABS: ALLENS TEST YES-POS; INSPIRED O2 60%; VENTILATOR YES
[2020-09-25 02:46] VITALS: BP 121/67
[2020-09-25] MEDS: RT-ALBUTEROL INHALER HFA (VENTOLIN HFA) 18 GM IH SCH ×6 (02:46→22:37)
[2020-09-25 02:56] LABS: CALCIUM 6.8 MG/DL (8.5-10.1); CREATININE SERUM 3.88 MG/DL (0.60-1.30); MAGNESIUM 2.5 MG/DL (1.6-2.4); PHOSPHORUS 8.2 MG/DL (2.3-4.7); POTASSIUM 4.6 MMOL/L (3.6-5.0)
[2020-09-25] MEDS: fentaNYL DRIP PRE-MIX 250 ML IV SCH ×4 (03:27→20:46)
[2020-09-25] MEDS: MIDAZOLAM DRIP PRE-MIX 100 ML IV SCH ×2 (04:24→17:06)
[2020-09-25] MEDS: MAGNESIUM 1 GM/100 ML IVPB 100 ML IV SCH (05:54)
[2020-09-25] MEDS: NOREPINEPHRINE 4 MG/250 ML 250 ML IV SCH ×3 (05:54→22:47)
[2020-09-25] MEDS: KCL 20 MEQ TAB (K-DUR) PO SCH (05:54)
[2020-09-25] MEDS: POTASSIUM CL 10MEQ/50ML IVPB 50 ML IV SCH (05:54)
[2020-09-25] MEDS: PROPOFOL DRIP (ICU) 100 ML IV SCH ×3 (06:08→21:52)
[2020-09-25] MEDS: ENOXAPARIN 80 MG/0.8 ML (LOVENOX) SYR SC SCH (06:08)
[2020-09-25] MEDS: MEROPENEM 500 MG in WATER (STERILE) FOR INJECTION 10 ML IV SCH (06:08)
[2020-09-25 07:05] VITALS: BP 121/56
--- NOTE | 2020-09-25 07:58 | Diagnostic Imaging Report ---
EXAMINATION: Chest 1 view HISTORY: COVID positive. Followup. Intubated. COMPARISON: 09/24/2020. FINDINGS: The endotracheal tube, enteric tube, and right internal jugular central line are stable. Unchanged diffuse opacities are seen throughout the lungs. No large pleural effusion or pneumothorax. Stable chronic silhouette. IMPRESSION: 1. Stable diffuse opacities throughout the lungs. 2. Stable support devices. Dictated by: Dictated on workstation # [id number]
[2020-09-25] MEDS: SODIUM BICARBONATE 8.4% VIAL 100 MEQ in 1/2 NS IV SOLUTION 1,000 ML IV SCH (08:07)
--- NOTE | 2020-09-25 08:07 | Physical Therapy Progress Note ---
Therapy Progress Note Patient remains sedated and intubated. PT will continue to monitor patient status. ASAEL LABOY PT Sep 25, 2020 08:07
[2020-09-25] MEDS: LINEZOLID IVPB 300 ML IV SCH (08:10)
[2020-09-25] MEDS: PANTOPRAZOLE 40 MG (PROTONIX) VIAL IV SCH (08:10)
[2020-09-25] MEDS: CALCIUM ACETATE 667 MG CAP (PHOSLO) PO SCH ×3 (08:10→17:05)
--- NOTE | 2020-09-25 11:36 | Physical Therapy Progress Note ---
Therapy Progress Note PROM to bilateral LE and UE, O2 stayed in upper 80's the whole time. Patient has no contractures or abnormal tightness at this time. ASAEL LABOY PT Sep 25, 2020 11:36
--- NOTE | 2020-09-25 12:16 | Progress Note - Hospitalist ---
CHRISRHONA, 09/25/20 1216: Subjective Subjective/Events-last exam Mr. Long was seen and examined by Dr. Baez in the ICU for acute hypoxic respiratory failure secondary to COVID19 infection. He is currently mechanically ventilated with FiO2 55 and PEEP of 10. Is sedated with fentanyl, midazolam, and propofol. Nimbex is d/c due to no proning today. Levophed was turned off yesterday and has not been restarted. Family called today to discuss further questions regarding HD/transfer and will be called back by Dr. Baez. Focused Exam Lactate Level 09/24/20 05:40: Lactic Acid Level 1.12 Objective Exam Vital Signs Vital Signs Date Time Temp Pulse Resp B/P (MAP) Pulse Ox O2 Delivery O2 Flow Rate FiO2 09/25/20 14:14 Mechanical Ventilator 75.00 09/25/20 13:57 76 125/64 09/25/20 13:00 36.6 19 93 09/25/20 08:00 55 Capillary Refill : Less Than 3 Seconds Respiratory: Lungs Clear, Normal Breath Sounds Cardiovascular: Regular Rate, Rhythm Gastrointestinal: Soft Results/Procedures Lab Laboratory Tests 09/25/20 02:10 Patient resulted labs reviewed. Imaging: Reviewed Imaging Report Assessment/Plan Assessment and Plan Assess & Plan/Chief Complaint Acute hypoxic respiratory failure secondary to COVID pneumonia * Pt intubated 09/19 * FiO2 55, PEEP 10 * On nimbex, midazolam, fentanyl, propofol - d/c nimbex as no proning today * Merrem and linezolid day 2 * Repeat pancultures negative * Decadron day 5 * CVP 09/21 * Pt does not qualify for remdesivir Worsening renal failure with hyperphos and metabolic acidosis Acute renal insufficiency * Family initially declined transfer for dialysis but would like to rediscuss this with Dr. Baez * Pt has a very poor prognosis. * Currently on bicarb drip * IVF currently LR at 75 * Monitor * Avoid nephrotoxic meds Secondary PNA - worsening leukocytosis * C diff negative * Merrem and linezolid day 2 * Completed course of eraxis * Pancultures negative Anemia * Worsening anemia seen on labs * FOBT + * D/c lovenox 09/25 secondary to FOBT + Asthma exacerbation * Albuterol * Steroids Diet: npo, tube feedings being held at this time GI/DVT ppx: pepcid; d/c lovenox today 09/25 DNR Will call family to discuss further questions on HD and transfer. Clinical Quality Measures DVT/VTE Risk/Contraindication: Risk Factor Score Per Nursin RFS Level Per Nursing on Admit: 4+=Very High TYESHA BAEZ MD 09/25/20 1443: Subjective HPI/CC On Admission Date Seen by Provider: Sep 25, 2020 Time Seen by Provider: 11:00 Objective Exam General Appearance: Chronically ill, Other (Intubated) Neck: Limited Range of Motion Respiratory: Lungs Clear, Normal Breath Sounds Cardiovascular: Regular Rate, Rhythm, No Gallop Gastrointestinal: Soft Extremity: Pedal Edema Neurologic/Psychiatric: Other (Dated) Results/Procedures Imaging: Reviewed Imaging Films, Reviewed Imaging Report Supervisory-Addendum Brief Verification & Attestation Participated in pt care: history Personally performed: exam, history, supervision of care Care discussed with: Medical Student, other (Family, pharmacy) Procedures: n/a Verification and Attestation of Medical Student E/M Service A medical student performed and documented this service in my presence. I reviewed and verified all information documented by the medical student and made modifications to such information, when appropriate. I personally performed the physical exam and medical decision making. Tyesha Baez, Sep 27, 2020,11:06 Over the day the patient has had increasing oxygen demands and has become oliguric. Discussed antibiotic use with pharmacist today and will DC Zyvox will continue meropenem at this point. Called family and discussed with [facility] with the son on the phone at the same time. Discussed the possibility of hemodialysis. They feel that they would like to continue the current course with ventilator care but realize that his prognosis is poor and that this is basically in God's hands. They continue to decline dialysis and transfer of care and would like him kept here and kept comfortable, labs are reviewed and because of the increasing oxygen demands and decreasing urine output will change off the bicarb drip and change to half-normal saline. Patient does reflect a respiratory acidosis with CO2 retention currently with a pH of 7.3. Prognosis is poor RHONA PEREZ, Sep 25, 2020 12:16 TYESHA BAEZ MD Sep 25, 2020 14:43
[2020-09-25] MEDS: 1/2 NS IV SOLUTION 1,000 ML IV SCH (15:07)
[2020-09-25 15:30] VITALS: BP 153/69
[2020-09-25] MEDS ORDERED: FUROSEMIDE 40 MG/4 ML INJ (LASIX) IVP NR (16:45)
[2020-09-25 19:11] VITALS: BP 155/73
[2020-09-25 22:37] VITALS: BP 147/78
[2020-09-26] MEDS: ARTIFICIAL TEARS OINT (LACRI-LUBE) 3.5 GM TUBE OU SCH ×10 (00:20→20:22)
[2020-09-26] MEDS: inSUlin ASPART (NovoLOG) 1 UNIT/0.01 ML (CHARGE PER UNIT) SQ SCH ×4 (00:20→17:31)
[2020-09-26 02:42] VITALS: BP 149/79
[2020-09-26] MEDS: RT-ALBUTEROL INHALER HFA (VENTOLIN HFA) 18 GM IH SCH ×6 (02:42→21:40)
[2020-09-26] MEDS: fentaNYL DRIP PRE-MIX 250 ML IV SCH ×4 (03:03→23:46)
[2020-09-26] MEDS: CISATRACURIUM INJECTION 100 MG in NS (IVPB) 200 ML IV SCH ×5 (03:04→22:25)
[2020-09-26] MEDS: 1/2 NS IV SOLUTION 1,000 ML IV SCH ×2 (03:07→17:28)
[2020-09-26 03:29] LABS: BASOPHILS % (AUTO) 0 % (0-10); EOSINOPHILS % (AUTO) 0 % (0-10); HEMATOCRIT 27 % (40-54); HEMOGLOBIN 8.2 g/dL (13.3-17.7); LYMPHOCYTES # (AUTO) 0.4 10^3/uL (1.0-4.0); LYMPHOCYTES % (AUTO) 4 % (12-44); MEAN CORPUSCULAR HEMOGLOBIN 29 pg (25-34); MEAN CORPUSCULAR HGB CONC 31 g/dL (32-36); MEAN CORPUSCULAR VOLUME 94 fL (80-99); MEAN PLATELET VOLUME 11.6 fL (9.0-12.2); MONOCYTES # (AUTO) 0.1 10^3/uL (0.0-1.0); MONOCYTES % (AUTO) 1 % (0-12); NEUTROPHILS # (AUTO) 9.3 10^3/uL (1.8-7.8); NEUTROPHILS % (AUTO) 93 % (42-75); PLATELET COUNT 168 10^3/uL (130-400)
[2020-09-26 03:30] LABS: ABG OXYGEN SATURATION 97 % (94-100); ABG PCO2 61 MMHG (35-45); ABG PO2 90 MMHG (79-93); ABG TCO2 26.7 MMOL/L (21.0-31.0); ALLENS TEST POSITIVE; INSPIRED O2 70; PATIENT TEMP 37.7; VENTILATOR YES
[2020-09-26 03:31] LABS: ABG PH 7.23 (7.37-7.43)
[2020-09-26 03:42] LABS: POTASSIUM 4.7 MMOL/L (3.6-5.0)
[2020-09-26 03:43] LABS: CALCIUM 6.6 MG/DL (8.5-10.1)
[2020-09-26 03:47] LABS: CREATININE SERUM 4.49 MG/DL (0.60-1.30)
[2020-09-26 03:49] LABS: MAGNESIUM 2.5 MG/DL (1.6-2.4)
[2020-09-26] MEDS: POTASSIUM CL 10MEQ/50ML IVPB 50 ML IV SCH (06:15)
[2020-09-26] MEDS: NOREPINEPHRINE 4 MG/250 ML 250 ML IV SCH ×3 (06:15→22:25)
[2020-09-26] MEDS: KCL 20 MEQ TAB (K-DUR) PO SCH (06:15)
[2020-09-26] MEDS: MAGNESIUM 1 GM/100 ML IVPB 100 ML IV SCH (06:15)
[2020-09-26] MEDS: ENOXAPARIN 100 MG/1 ML (LOVENOX) SYR SC SCH (06:16)
[2020-09-26] MEDS: PROPOFOL DRIP (ICU) 100 ML IV SCH ×4 (06:16→23:47)
[2020-09-26 07:12] VITALS: BP 160/74
--- NOTE | 2020-09-26 07:50 | Diagnostic Imaging Report ---
INDICATION: COVID infection and respiratory failure Single AP view of chest is obtained with comparison made to study of one day earlier. Extensive bilateral airspace disease has shown no change. Endotracheal tube is in place with tip just below thoracic inlet. Nasogastric tube and right jugular central venous catheter appear to be stable. There is no pneumothorax. IMPRESSION: Extensive bilateral airspace disease is shown no change. Report was faxed to [facility] by griselda at 7:48am. Dictated by: Dictated on workstation # [id number]
[2020-09-26] MEDS: CALCIUM ACETATE 667 MG CAP (PHOSLO) PO SCH ×3 (08:12→17:31)
[2020-09-26] MEDS: PANTOPRAZOLE 40 MG (PROTONIX) VIAL IV SCH (08:13)
[2020-09-26] MEDS: MIDAZOLAM DRIP PRE-MIX 100 ML IV SCH ×2 (08:16→23:46)
[2020-09-26 10:44] VITALS: BP 132/75
--- NOTE | 2020-09-26 11:08 | Physical Therapy Progress Note ---
Therapy Progress Note Pt remains intubated this date. Will continue to follow and initiate PT services when pt medically able to actively participate. BRANDI JESUS PT Sep 26, 2020 11:08
[2020-09-26] MEDS ORDERED: FUROSEMIDE 40 MG/4 ML INJ (LASIX) IVP ONE (11:45)
--- NOTE | 2020-09-26 13:25 | Progress Note - Hospitalist ---
Subjective HPI/CC On Admission Date Seen by Provider: Sep 26, 2020 Time Seen by Provider: 09:45 Subjective/Events-last exam Patient remains intubated and sedated. Urine output remains sparse with increasing BUN and creatinine Focused Exam Lactate Level Objective Exam Vital Signs Vital Signs Date Time Temp Pulse Resp B/P (MAP) Pulse Ox O2 Delivery O2 Flow Rate FiO2 09/27/20 10:52 90 20 95 70 09/27/20 10:08 36.5 107/67 Mechanical Ventilator 09/27/20 10:00 70.00 Capillary Refill : Less Than 3 Seconds General Appearance: Chronically ill HEENT: Other (Facial edema) Neck: Limited Range of Motion Respiratory: Lungs Clear, Normal Breath Sounds, No Accessory Muscle Use, Decreased Breath Sounds Cardiovascular: Regular Rate, Rhythm, No Murmur Gastrointestinal: Non Tender, Distended Back: Normal Inspection Extremity: Pedal Edema Neurologic/Psychiatric: Other Results/Procedures Lab Laboratory Tests 09/27/20 02:54 Patient resulted labs reviewed. Imaging: Reviewed Imaging Films, Reviewed Imaging Report Assessment/Plan Assessment and Plan Assess & Plan/Chief Complaint cute hypoxic respiratory failure secondary to COVID pneumonia * Pt intubated 09/19 * FiO2 75% PEEP 22 * On nimbex, midazolam, fentanyl, propofol - d/c nimbex as no proning today * Merrem and linezolid day 3 * Repeat pancultures negative * Decadron day 6 * CVP 09/21 * Pt does not qualify for remdesivir Worsening renal failure with hyperphos Acute renal failure-oliguric * Family has declined dialysis and transfer * IVF currently LR at 75 * Monitor * Avoid nephrotoxic meds Secondary PNA - worsening leukocytosis * C diff negative * Merrem and linezolid day 3 * Completed course of eraxis * Pancultures negative Anemia * Worsening anemia seen on labs * FOBT + * D/c lovenox 09/25 secondary to FOBT + Asthma exacerbation * Albuterol * Steroids Diet: npo, tube feedings being held at this time GI/DVT ppx: pepcid; d/c lovenox today 09/25 DNR Have given 1 dose of Lasix-patient requiring increased oxygen prognosis remains dismal Critical Care Ventilator Management Clinical Quality Measures DVT/VTE Risk/Contraindication: Risk Factor Score Per Nursin RFS Level Per Nursing on Admit: 4+=Very High TYESHA BAEZ MD Sep 26, 2020 13:24
[2020-09-26 14:31] VITALS: BP 149/61
[2020-09-26 18:57] VITALS: BP 100/59
[2020-09-26 21:41] VITALS: BP 108/68
[2020-09-27] VITALS (11 sets, daily range): BP systolic 87–107; BP diastolic 55–67
[2020-09-27] MEDS: RT-ALBUTEROL INHALER HFA (VENTOLIN HFA) 18 GM IH SCH ×6 (01:46→21:23)
[2020-09-27 03:10] LABS: ABG BASE EXCESS -4.7 MMOL/L (-2.5-2.5); ABG OXYGEN SATURATION 98 % (94-100); ABG PCO2 52 MMHG (35-45); ABG PO2 142 MMHG (79-93); ABG TCO2 23.1 MMOL/L (21.0-31.0)
[2020-09-27 03:11] LABS: ABG PH 7.24 (7.37-7.43); INSPIRED O2 70; PATIENT TEMP 36.8; VENTILATOR NO
[2020-09-27 03:17] LABS: POTASSIUM 4.9 MMOL/L (3.6-5.0)
[2020-09-27 03:18] LABS: BASOPHILS % (AUTO) 0 % (0-10); CALCIUM 6.6 MG/DL (8.5-10.1); EOSINOPHILS # (AUTO) 0.1 10^3/uL (0.0-0.3); EOSINOPHILS % (AUTO) 1 % (0-10); HEMATOCRIT 22 % (40-54); LYMPHOCYTES # (AUTO) 0.3 10^3/uL (1.0-4.0); LYMPHOCYTES % (AUTO) 4 % (12-44); MEAN CORPUSCULAR HEMOGLOBIN 29 pg (25-34); MEAN CORPUSCULAR HGB CONC 31 g/dL (32-36); MEAN CORPUSCULAR VOLUME 94 fL (80-99); MEAN PLATELET VOLUME 11.6 fL (9.0-12.2); MONOCYTES # (AUTO) 0.1 10^3/uL (0.0-1.0); MONOCYTES % (AUTO) 1 % (0-12); NEUTROPHILS # (AUTO) 7.2 10^3/uL (1.8-7.8); NEUTROPHILS % (AUTO) 92 % (42-75); PLATELET COUNT 146 10^3/uL (130-400); WHITE BLOOD COUNT 7.8 10^3/uL (4.3-11.0)
[2020-09-27 03:23] LABS: CREATININE SERUM 4.83 MG/DL (0.60-1.30); HEMOGLOBIN 6.8 g/dL (13.3-17.7)
[2020-09-27 03:25] LABS: MAGNESIUM 2.8 MG/DL (1.6-2.4)
[2020-09-27] MEDS ORDERED: NS IV 500 ML 500 ML IV SCH ×2 (04:15)
[2020-09-27] MEDS: KCL 20 MEQ TAB (K-DUR) PO SCH (05:19)
[2020-09-27] MEDS: MAGNESIUM 1 GM/100 ML IVPB 100 ML IV SCH (05:19)
[2020-09-27] MEDS: ARTIFICIAL TEARS OINT (LACRI-LUBE) 3.5 GM TUBE OU SCH ×6 (05:19→20:29)
[2020-09-27] MEDS: POTASSIUM CL 10MEQ/50ML IVPB 50 ML IV SCH (05:19)
[2020-09-27] MEDS: ENOXAPARIN 100 MG/1 ML (LOVENOX) SYR SC SCH (05:20)
[2020-09-27] MEDS: inSUlin ASPART (NovoLOG) 1 UNIT/0.01 ML (CHARGE PER UNIT) SQ SCH ×4 (05:20→18:08)
[2020-09-27] MEDS: 1/2 NS IV SOLUTION 1,000 ML IV SCH ×2 (06:01→20:29)
[2020-09-27] MEDS: PROPOFOL DRIP (ICU) 100 ML IV SCH ×3 (06:02→16:11)
[2020-09-27] MEDS: CISATRACURIUM INJECTION 100 MG in NS (IVPB) 200 ML IV SCH ×4 (08:10→20:40)
[2020-09-27] MEDS: CALCIUM ACETATE 667 MG CAP (PHOSLO) PO SCH ×3 (08:11→18:08)
[2020-09-27] MEDS: fentaNYL DRIP PRE-MIX 250 ML IV SCH ×2 (08:11→16:11)
[2020-09-27] MEDS: PANTOPRAZOLE 40 MG (PROTONIX) VIAL IV SCH (08:11)
[2020-09-27] MEDS: NOREPINEPHRINE 4 MG/250 ML 250 ML IV SCH ×2 (09:20→16:11)
--- NOTE | 2020-09-27 09:58 | Diagnostic Imaging Report ---
CLINICAL INDICATIONS: Patient is Covid positive. Daily chest x-ray. Patient on ventilator. Exam: Portable chest x-ray upright view. Comparisons: Chest x-ray dated 09/26/2020. Findings: ET tube and feeding tube again seen in stable position. Right IJ central line seen in stable position. There is slight improved aeration of both lung bases. There is otherwise stable diffuse bilateral lung patchy infiltrates. Pulmonary vasculature and chronic silhouette are within normal limits. There are degenerative spurs involving the thoracic spine. IMPRESSION: 1: There are diffuse bilateral lung infiltrates again seen which has slightly improved in the lung bases. Dictated by: Dictated on workstation # [id number]
--- NOTE | 2020-09-27 11:13 | Progress Note - Hospitalist ---
Subjective HPI/CC On Admission Date Seen by Provider: Sep 27, 2020 Time Seen by Provider: 10:15 Subjective/Events-last exam Patient remains intubated and sedated. Overnight the patient had swelling of his scrotum and with laceration from the pressure. Patient's hemoglobin is dropped to 6.8 and is currently receiving a blood transfusion. Blood pressures are soft FiO2 is 70% on the ventilator. Peak airway pressures is 47. Last 12 urine output was around 500 cc Objective Exam Vital Signs Vital Signs Date Time Temp Pulse Resp B/P (MAP) Pulse Ox O2 Delivery O2 Flow Rate FiO2 09/27/20 11:00 89 20 101/58 (72) 95 Mechanical Ventilator 70.00 09/27/20 10:52 70 09/27/20 10:08 36.5 Capillary Refill : Less Than 3 Seconds General Appearance: Chronically ill HEENT: Other (Great deal of facial edema) Neck: Limited Range of Motion Respiratory: Rhonci (Large airway) Cardiovascular: Regular Rate, Rhythm, No Gallop Gastrointestinal: Other (Ascites and anasarca) Extremity: Pedal Edema Neurologic/Psychiatric: Other (Sedated and intubated) Skin: Other (Large skin tear of the scrotal area with serosanguineous bloody drainage but in light less edema.) Results/Procedures Lab Laboratory Tests 09/27/20 02:54 Patient resulted labs reviewed. Imaging: Reviewed Imaging Films, Reviewed Imaging Report Assessment/Plan Assessment and Plan Assess & Plan/Chief Complaint Acute hypoxic respiratory failure secondary to COVID pneumonia * Pt intubated 09/19 * FiO2 75% PEEP 22 * On nimbex, midazolam, fentanyl, propofol - * Merrem and linezolid day 4 * Repeat pancultures negative * Decadron day 7 * CVP 09/21 * Pt does not qualify for remdesivir Worsening renal failure with hyperphos Acute renal failure-BUN over 100-slightly increased urine output * Family has declined dialysis and transfer * IVF currently LR at 75 * Monitor * Avoid nephrotoxic meds Secondary PNA - worsening leukocytosis * C diff negative * Merrem and linezolid day 3 * Completed course of eraxis * Pancultures negative Anemia * Worsening anemia seen on labs * FOBT + * D/c lovenox 09/25 secondary to FOBT + * Receiving 1 unit of packed red cells today Asthma exacerbation * Albuterol * Steroids * Scrotal breakdown secondary to edema we will continue to elevate scrotum and obtain wound care consult in the morning Diet: npo, tube feedings being held at this time GI/DVT ppx: pepcid; d/c lovenox today 09/25 DNR Have given 1 dose of Lasix-patient requiring increased oxygen prognosis remains dismal Critical Care Ventilator Management Clinical Quality Measures DVT/VTE Risk/Contraindication: Risk Factor Score Per Nursin RFS Level Per Nursing on Admit: 4+=Very High TYESHA BAEZ MD Sep 27, 2020 11:13
[2020-09-27] MEDS: MIDAZOLAM DRIP PRE-MIX 100 ML IV SCH (14:45)
[2020-09-27 14:58] LABS: HEMOGLOBIN 7.6 g/dL (13.3-17.7)
--- NOTE | 2020-09-27 17:39 | Consultation - Surgery ---
History of Present Illness History of Present Illness Patient Consulted On(homer/time) 09/27/20 17:32 Time Seen by Provider: 12:41 History of Present Illness Surgery asked to consult regarding Scrotal breakdown. HPI per ED: Patient is a 64-year-old male diagnosed with COVID 2 days ago who presents with respiratory distress/respiratory failure. Patient states he is progressively became more short of breath over the past 2 days. Reports history of asthma. On ED arrival, the patient's to With purse lip breathing with an O2 saturation of 40%. Patient brought immediately back to a treatment room and placed on oxygen mask and transitioned to BiPAP. History is limited due to the patient's clinical condition. When seen pt is intubated and sedated. Nurse states that pt has had swelling and edema in the scrotum, not on extra fluids. Allergies and Home Medications Allergies Coded Allergies: No Known Drug Allergies (Unverified , 09/17/20) Home Medications Amlodipine Besylate 10 Mg Tablet, 10 MG PO DAILY, (Reported) Losartan Potassium 50 Mg Tablet, 50 MG PO DAILY, (Reported) Montelukast Sodium 10 Mg Tablet, 10 MG PO HS, (Reported) Pravastatin Sodium 40 Mg Tablet, 40 MG PO HS, (Reported) Tamsulosin HCl 0.4 Mg Cap, 0.8 MG PO DAILY, (Reported) TAKES 2 (0.4MG) CAPS Trazodone HCl 50 Mg Tablet, 50 MG PO HS PRN for SLEEP, (Reported) Patient Home Medication List Home Medication List Reviewed: Yes Past Iahxsbw-Froacl-Lgtohe Hx Patient Social History Number of Drinks Today: 0 Smoking Status: Never a Smoker 2nd Hand Smoke Exposure: No Recent Hopitalizations: No Physical Abuse Screen: No Sexual Abuse: No Seasonal Allergies Seasonal Allergies: No Surgeries History of Surgeries: Yes (throat) Respiratory History of Respiratory Disorde: Yes Respiratory Disorders: Asthma, Pneumonia Cardiovascular History of Cardiac Disorders: No Neurological History of Neurological Disord: No Genitourinary History of Genitourinary Disor: No Gastrointestinal History of Gastrointestinal Di: No Musculoskeletal History of Musculoskeletal Dis: No Endocrine History of Endocrine Disorders: Yes Endocrine Disorders: Diabetes, Non-Insulin dep HEENT History of HEENT Disorders: No Cancer History of Cancer: No Psychosocial History of Psychiatric Problem: No Integumentary History of Skin or Integumenta: No Blood Transfusions History of Blood Disorders: No Reviewed Nursing Assessment Reviewed/Agree w Nursing PMH: Yes Family Medical History Significant Family History: Diabetes Family Medial History: Diabetes mellitus 19 FATHER 19 MOTHER Review of Systems-General ROS-Unable to Obtain: pt sedated and intubated Physical Exam-General Problems Physical Exam Vital Signs Vital Signs - First Documented 09/21/20 09/21/20 09/21/20 00:00 02:24 03:33 Temp 38.4 Pulse 71 Resp 26 B/P (MAP) 127/75 (92) Pulse Ox 93 O2 Delivery Mechanical Ventilator O2 Flow Rate 45.00 FiO2 45 Capillary Refill : Less Than 3 Seconds General Appearance: other (sedated and intubated) Eyes: Bilateral Eye PERRL, Bilateral Eye EOMI HEENT: No scleral icterus (R), No scleral icterus (L); other (mucous membranes moist) Respiratory: decreased breath sounds, crackles Cardiovascular: regular rate, rhythm, no murmur Gastrointestinal: soft Genital/Rectal: other (penis is normal, scrotum however is very edematous and actually split down the center) Data Review Labs Laboratory Tests 09/27/20 00:23: Glucometer 126H 09/27/20 02:54: White Blood Count 7.8, Red Blood Count 2.32L, Hemoglobin 6.8*L, Hematocrit 22L, Mean Corpuscular Volume 94, Mean Corpuscular Hemoglobin 29, Mean Corpuscular Hemoglobin Concent 31L, Red Cell Distribution Width 16.2H, Platelet Count 146, Mean Platelet Volume 11.6, Immature Granulocyte % (Auto) 2, Neutrophils (%) (Auto) 92H, Lymphocytes (%) (Auto) 4L, Monocytes (%) (Auto) 1, Eosinophils (%) (Auto) 1, Basophils (%) (Auto) 0, Neutrophils # (Auto) 7.2, Lymphocytes # (Auto) 0.3L, Monocytes # (Auto) 0.1, Eosinophils # (Auto) 0.1, Basophils # (Auto) 0.0, Immature Granulocyte # (Auto) 0.2H, Blood Gas Puncture Site RIGHT RADIAL, Blood Gas Patient Temperature 36.8, Arterial Blood pH 7.24*L, Arterial Blood Partial Pressure CO2 52H, Arterial Blood Partial Pressure O2 142H, Arterial Blood HCO3 22L, Arterial Blood Total CO2 23.1, Arterial Blood Oxygen Saturation 98, Arterial Blood Base Excess -4.7L, Ned Test UNKNOWN, Blood Gas Ventilator Setting NO, Blood Gas Inspired Oxygen 70, Sodium Level 143, Potassium Level 4.9, Chloride Level 111H, Carbon Dioxide Level 20L, Anion Gap 12, Blood Urea Nitrogen 103*H, Creatinine 4.83H, Estimat Glomerular Filtration Rate 12, BUN/Creatinine Ratio 21, Glucose Level 118H, Calcium Level 6.6L, Phosphorus Level 8.0H, Magnesium Level 2.8H, Triglycerides Level 291H 09/27/20 11:08: Glucometer 100 09/27/20 14:35: Hemoglobin 7.6L, Hematocrit 23L Microbiology 09/24/20 C. difficile GDH Antigen & Toxins - Final, Complete 09/22/20 MRSA Screen - Final, Complete MRSA not isolated 09/22/20 Blood Culture - Final, Complete No growth Assessment/Plan Assessment/Plan Assessment/Plan Scrotal Edema with tear of scrotal skin Covid pneumonia Acute respiratory failure requiring intubation Poor venous access Continue good local wound care with xeroform gauze, keep moist and elevated. Will consider closing and discuss with Urology. Clinical Quality Measures DVT/VTE Risk/Contraindication: Risk Factor Score Per Nursin RFS Level Per Nursing on Admit: 4+=Very High LUDMILA RANDOLPH DO Sep 27, 2020 17:39
[2020-09-28] MEDS: PROPOFOL DRIP (ICU) 100 ML IV SCH ×7 (00:03→23:59)
[2020-09-28] MEDS: inSUlin ASPART (NovoLOG) 1 UNIT/0.01 ML (CHARGE PER UNIT) SQ SCH ×5 (00:03→23:40)
[2020-09-28] MEDS: ARTIFICIAL TEARS OINT (LACRI-LUBE) 3.5 GM TUBE OU SCH ×7 (00:03→23:58)
[2020-09-28] MEDS: fentaNYL DRIP PRE-MIX 250 ML IV SCH ×4 (00:36→20:38)
[2020-09-28] MEDS: NOREPINEPHRINE 4 MG/250 ML 250 ML IV SCH ×4 (00:36→23:59)
[2020-09-28] MEDS: CISATRACURIUM INJECTION 100 MG in NS (IVPB) 200 ML IV SCH ×5 (02:02→23:59)
[2020-09-28 02:09] LABS: ABG BASE EXCESS -7.8 MMOL/L (-2.5-2.5); ABG OXYGEN SATURATION 98 % (94-100); ABG PCO2 52 MMHG (35-45); ABG PO2 100 MMHG (79-93); ABG TCO2 20.7 MMOL/L (21.0-31.0)
[2020-09-28 02:10] LABS: ALLENS TEST POSITIVE; BASOPHILS % (AUTO) 0 % (0-10); EOSINOPHILS # (AUTO) 0.1 10^3/uL (0.0-0.3); EOSINOPHILS % (AUTO) 1 % (0-10); HEMATOCRIT 23 % (40-54); HEMOGLOBIN 7.2 g/dL (13.3-17.7); INSPIRED O2 60; LYMPHOCYTES # (AUTO) 0.5 10^3/uL (1.0-4.0); LYMPHOCYTES % (AUTO) 5 % (12-44); MEAN CORPUSCULAR HEMOGLOBIN 30 pg (25-34); MEAN CORPUSCULAR HGB CONC 32 g/dL (32-36); MEAN CORPUSCULAR VOLUME 95 fL (80-99); MEAN PLATELET VOLUME 11.5 fL (9.0-12.2); MONOCYTES # (AUTO) 0.2 10^3/uL (0.0-1.0); MONOCYTES % (AUTO) 2 % (0-12); NEUTROPHILS # (AUTO) 7.4 10^3/uL (1.8-7.8); NEUTROPHILS % (AUTO) 84 % (42-75); PATIENT TEMP 36.9; PLATELET COUNT 164 10^3/uL (130-400); VENTILATOR YES; WHITE BLOOD COUNT 8.8 10^3/uL (4.3-11.0)
[2020-09-28 02:11] LABS: ABG PH 7.19 (7.37-7.43)
[2020-09-28 02:30] LABS: POTASSIUM 4.6 MMOL/L (3.6-5.0)
[2020-09-28 02:31] LABS: CALCIUM 6.6 MG/DL (8.5-10.1)
[2020-09-28 02:35] LABS: CREATININE SERUM 5.27 MG/DL (0.60-1.30); PHOSPHORUS 7.7 MG/DL (2.3-4.7)
[2020-09-28 02:37] LABS: MAGNESIUM 2.8 MG/DL (1.6-2.4)
[2020-09-28 02:40] VITALS: BP 89/60
[2020-09-28] MEDS: RT-ALBUTEROL INHALER HFA (VENTOLIN HFA) 18 GM IH SCH ×6 (02:40→20:58)
--- NOTE | 2020-09-28 04:23 | Pulmonary Progress Note ---
Subjective Time Seen by a Provider: 04:17 Subjective/Events-last exam Pt overall is doing worse. Pt is has very poor prognosis. Sepsis Event Evaluation Height, Weight, BMI Height: '" Weight: lbs. oz. kg; 30.55 BMI Method: Exam Exam Vital Signs Date Time Temp Pulse Resp B/P (MAP) Pulse Ox O2 Delivery O2 Flow Rate FiO2 09/28/20 02:40 94 20 97 60 09/28/20 02:19 36.9 09/28/20 00:35 37.4 09/28/20 00:03 93/52 09/28/20 00:00 100 20 93/52 (66) 96 Mechanical Ventilator 60.00 09/27/20 23:00 105 20 91/56 (66) 94 Mechanical Ventilator 60.00 09/27/20 22:00 110 20 94/58 (78) 93 Mechanical Ventilator 60.00 09/27/20 21:30 37.7 09/27/20 21:28 Mechanical Ventilator 60.00 09/27/20 21:23 105 20 97 65 09/27/20 21:00 109 90/56 (67) 93 Mechanical Ventilator 65.00 09/27/20 20:31 38.0 09/27/20 20:27 112 19 101/56 (71) 93 Mechanical Ventilator 65.00 09/27/20 20:00 113 20 98/60 (71) 93 Mechanical Ventilator 65.00 09/27/20 20:00 93 Mechanical Ventilator 65 09/27/20 19:31 37.9 09/27/20 19:00 Mechanical Ventilator 65.00 09/27/20 19:00 107 09/27/20 19:00 107 20 95/59 (69) 95 Mechanical Ventilator 65.00 09/27/20 19:00 110 20 94 65 09/27/20 18:08 37.1 09/27/20 18:00 104 20 92/57 (69) 94 Mechanical Ventilator 70.00 09/27/20 17:00 103 20 95/57 (70) 94 Mechanical Ventilator 70.00 09/27/20 16:11 95 102/64 09/27/20 16:00 101 20 96/61 (73) 94 Mechanical Ventilator 70.00 09/27/20 15:17 37.3 09/27/20 15:00 95 19 102/64 (77) 95 Mechanical Ventilator 70.00 09/27/20 14:45 93 20 95/65 09/27/20 14:01 93 20 96 70 09/27/20 14:00 93 20 95/65 (75) 95 Mechanical Ventilator 70.00 09/27/20 13:14 36.4 83 20 95/62 95 Mechanical Ventilator 70 09/27/20 13:00 91 09/27/20 13:00 91 19 99/58 (69) 96 Mechanical Ventilator 70.00 09/27/20 12:59 36.2 92 20 91/60 95 Mechanical Ventilator 70 09/27/20 12:00 91 19 98/60 (71) 96 Mechanical Ventilator 70.00 09/27/20 11:12 89 101/58 09/27/20 11:10 36.2 09/27/20 11:00 89 20 101/58 (72) 95 Mechanical Ventilator 70.00 09/27/20 11:00 89 19 89/60 (73) 95 09/27/20 10:52 90 20 95 70 09/27/20 10:08 36.5 88 20 107/67 95 Mechanical Ventilator 70 09/27/20 10:00 90 21 107/67 (85) 95 Mechanical Ventilator 70.00 09/27/20 09:53 36.3 88 20 99/59 95 Mechanical Ventilator 70 09/27/20 09:47 36.4 88 20 96/60 95 Mechanical Ventilator 70 09/27/20 09:00 85 19 100/60 (73) 95 Mechanical Ventilator 70.00 09/27/20 08:25 95 Mechanical Ventilator 70 09/27/20 08:00 81 19 109/61 (77) 95 Mechanical Ventilator 70.00 09/27/20 07:46 35.5 09/27/20 07:18 80 20 93 70 09/27/20 07:00 76 09/27/20 07:00 78 20 106/65 (79) 94 Mechanical Ventilator 70.00 09/27/20 06:37 35.5 Mechanical Ventilator 70.00 09/27/20 06:02 76 09/27/20 06:00 75 20 121/70 (87) 94 Mechanical Ventilator 80.00 09/27/20 05:00 80 20 118/71 (87) 94 Mechanical Ventilator 80.00 I & O 09/28/20 07:00 Intake Total 1580 ml Output Total 890 ml Balance 690 ml Height & Weight Height: '" Weight: lbs. oz. kg; 30.55 BMI Method: General Appearance: Chronically ill HEENT: Other (Great deal of facial edema) Neck: Limited Range of Motion Respiratory: Rhonci (Large airway) Cardiovascular: Regular Rate, Rhythm, No Gallop Capillary Refill: Less Than 3 Seconds Gastrointestinal: soft Extremity: Pedal Edema Neurologic/Psychiatric: Other (Sedated and intubated) Skin: Other (Large skin tear of the scrotal area with serosanguineous bloody d rainage but in light less edema.) Results Lab Laboratory Tests 09/27/20 02:54 09/27/20 14:35 09/28/20 01:59 Assessment/Plan Assessment/Plan COVID penumonia - Pt intubated through the weekend. -350,/ and 60% -Decrease PEEP to 18 -Give 2amps of bicarb -50mg of Rocuronium given -Hold Nimbex -Fentanyl 200 versed 6 and propofol at 20 - Zyvox, zosyn and eraxis. repeat jim cultures. - pending -Decadron -Proning -CVP -Pt does not qualify for remdesivir Worsening renal failure with hyperphos and metabolic acidosis -Family does not want HD -Give 2amps of bicarb secondary PNA - worsening leukocytosis -Zosyn and zyvox -Change Zosyn to Merrem -S/P Eraxis -PCT is 4.73 09/21 -jim cultures Scrotum edema with cellulitis -Surgery following Multiorgan failure Acute renal insufficiency - improving -IVF currently LR at 75 -Monitor -Avoid nephrotoxic meds - AsthmaAE -Albuterol -steroids GI/DVT ppx -Lovenox theraputic dosing secondary to DDIMER -Pepcid Very poor prognosis especially with worsening renal failure. JESSI CRENSHAW DO Sep 28, 2020 04:22
[2020-09-28] MEDS ORDERED: SODIUM BICARB 8.4% 50 MEQ/50 ML VIAL IV ONE (04:30)
[2020-09-28 04:43] LABS: ALBUMIN 1.7 GM/DL (3.2-4.5); POTASSIUM 4.7 MMOL/L (3.6-5.0)
[2020-09-28 04:44] LABS: CALCIUM 6.6 MG/DL (8.5-10.1)
[2020-09-28 04:45] LABS: TOTAL PROTEIN 4.8 GM/DL (6.4-8.2)
[2020-09-28 04:47] LABS: BILIRUBIN,TOTAL 0.2 MG/DL (0.1-1.0)
[2020-09-28 04:49] LABS: CREATININE SERUM 5.3 MG/DL (0.60-1.30)
[2020-09-28] MEDS: POTASSIUM CL 10MEQ/50ML IVPB 50 ML IV SCH (05:10)
[2020-09-28] MEDS: MAGNESIUM 1 GM/100 ML IVPB 100 ML IV SCH (05:11)
[2020-09-28] MEDS: KCL 20 MEQ TAB (K-DUR) PO SCH (05:11)
[2020-09-28] MEDS: ENOXAPARIN 100 MG/1 ML (LOVENOX) SYR SC SCH (05:33)
[2020-09-28 06:18] LABS: ABG BASE EXCESS -5.2 MMOL/L (-2.5-2.5); ABG OXYGEN SATURATION 91 % (94-100); ABG PCO2 44 MMHG (35-45); ABG PO2 59 MMHG (79-93); ABG TCO2 21.9 MMOL/L (21.0-31.0)
[2020-09-28 06:19] LABS: ALLENS TEST POSITIVE; INSPIRED O2 60; PATIENT TEMP 36.3; VENTILATOR YES
[2020-09-28 06:21] LABS: ABG PH 7.28 (7.37-7.43)
[2020-09-28] MEDS: MIDAZOLAM DRIP PRE-MIX 100 ML IV SCH ×2 (06:58→15:01)
[2020-09-28 07:07] VITALS: BP 111/63
--- NOTE | 2020-09-28 07:57 | Physical Therapy Progress Note ---
Therapy Progress Note Patient is sedated and intubated. PT will continue to monitor patient status. HENRY GENTILE PT Sep 28, 2020 07:57
[2020-09-28] MEDS: PANTOPRAZOLE 40 MG (PROTONIX) VIAL IV SCH (08:17)
[2020-09-28] MEDS: 1/2 NS IV SOLUTION 1,000 ML IV SCH ×2 (08:17→22:36)
[2020-09-28] MEDS: CALCIUM ACETATE 667 MG CAP (PHOSLO) PO SCH ×3 (08:17→17:06)
--- NOTE | 2020-09-28 08:29 | Diagnostic Imaging Report ---
INDICATION: Covid. Daily follow-up on a ventilator. EXAMINATION: Single view chest 09/28/2020. COMPARISON: 09/27/2020 FINDINGS: ET tube is stable. Feeding tube courses beneath diaphragm. Right central line unchanged. Diffuse increased interstitial and airspace opacity seen throughout both lungs similar to previous imaging. There are no significant effusions. No pneumothorax. IMPRESSION: 1. Stable chest. Dictated by: Dictated on workstation # [id number]
[2020-09-28] MEDS ORDERED: ROCURONIUM 10 MG/ML 5 ML SYRINGE IV ONE ×2 (10:56→11:15)
[2020-09-28 10:57] VITALS: BP 117/68
--- NOTE | 2020-09-28 11:27 | Physical Therapy Progress Note ---
Therapy Progress Note 1045 am: Initiated PROM right U/LE; sats noted to be in upper 60's. Ceased ROM. Notified nurse. BEST REDDY PT Sep 28, 2020 11:27
--- NOTE | 2020-09-28 11:48 | Diagnostic Imaging Report ---
INDICATION: Hypoxia, Covid positive. TIME OF EXAM: 11:28 AM Correlation is made with prior chest earlier same day. FINDINGS: ET tube has tip above the ashli. NG tube passes below the diaphragm. Right IJ line has tip overlying the SVC. Patchy bilateral pulmonary infiltrates persist. These may be increased on the right since earlier today. Left lung is similar. No significant effusion or pneumothorax is identified. IMPRESSION: Bilateral pulmonary infiltrates, perhaps slightly worse on the right when compared with examination earlier in the same day. Dictated by: Dictated on workstation # [id number]
[2020-09-28 15:14] VITALS: BP 92/53
[2020-09-28 18:22] VITALS: BP 93/57
--- NOTE | 2020-09-28 20:43 | Progress Note - Surgery ---
Subjective Time Seen by a Provider: 15:11 Subjective/Events-last exam Pt seen and examined, sedated on vent. Review of Systems unable to obtain, pt sedated Objective Exam Vital Signs Date Time Temp Pulse Resp B/P (MAP) Pulse Ox O2 Delivery O2 Flow Rate FiO2 09/28/20 20:37 Mechanical Ventilator 80.00 09/28/20 19:31 35.3 09/28/20 18:22 67 24 96 90 09/28/20 18:00 69 24 100/58 (72) 94 Mechanical Ventilator 90.00 09/28/20 17:00 76 24 101/57 (72) 94 Mechanical Ventilator 90.00 09/28/20 16:00 70 40 92/53 (66) 95 Mechanical Ventilator 90.00 09/28/20 15:52 35.9 09/28/20 15:25 Mechanical Ventilator 90.00 09/28/20 15:14 68 24 97 100 09/28/20 15:01 75 24 93/54 09/28/20 15:00 68 19 92/54 (67) 95 Mechanical Ventilator 100.00 09/28/20 15:00 75 93/54 09/28/20 15:00 75 93/54 09/28/20 14:00 75 24 93/54 (67) 97 Mechanical Ventilator 100.00 09/28/20 13:27 77 09/28/20 13:00 79 23 104/55 (71) 94 Mechanical Ventilator 100.00 09/28/20 12:00 83 24 110/60 (77) 92 Mechanical Ventilator 100.00 09/28/20 11:43 36.0 09/28/20 11:00 82 23 114/59 (77) 89 Mechanical Ventilator 100.00 09/28/20 10:57 80 24 90 60 09/28/20 10:00 85 24 110/62 (78) 95 Mechanical Ventilator 100.00 09/28/20 09:13 85 111/63 09/28/20 09:12 85 111/63 09/28/20 09:00 86 23 106/61 (76) 94 Mechanical Ventilator 100.00 09/28/20 08:43 Mechanical Ventilator 100.00 09/28/20 08:22 Mechanical Ventilator 80.00 09/28/20 08:00 86 Mechanical Ventilator 80 09/28/20 08:00 84 16 113/66 (82) 90 Mechanical Ventilator 60.00 09/28/20 07:46 36.0 09/28/20 07:07 85 23 95 60 09/28/20 07:00 86 24 111/63 (79) 95 Mechanical Ventilator 60.00 09/28/20 06:58 114/65 09/28/20 06:43 84 09/28/20 06:00 87 24 114/67 (83) 90 Mechanical Ventilator 60.00 09/28/20 05:10 112/67 09/28/20 05:00 96 23 112/67 (82) 95 Mechanical Ventilator 60.00 09/28/20 04:00 36.3 09/28/20 04:00 101 23 101/58 (72) 92 Mechanical Ventilator 60.00 09/28/20 03:00 102 20 97/58 (71) 92 Mechanical Ventilator 60.00 09/28/20 02:40 94 20 97 60 09/28/20 02:19 36.9 09/28/20 02:00 94 20 85/61 (69) 96 Mechanical Ventilator 60.00 09/28/20 01:00 98 09/28/20 01:00 98 20 88/59 (69) 96 Mechanical Ventilator 60.00 09/28/20 00:35 37.4 09/28/20 00:03 93/52 09/28/20 00:00 100 20 93/52 (66) 96 Mechanical Ventilator 60.00 09/27/20 23:00 105 20 91/56 (66) 94 Mechanical Ventilator 60.00 09/27/20 22:00 110 20 94/58 (78) 93 Mechanical Ventilator 60.00 09/27/20 21:30 37.7 09/27/20 21:28 Mechanical Ventilator 60.00 09/27/20 21:23 105 20 97 65 09/27/20 21:00 109 90/56 (67) 93 Mechanical Ventilator 65.00 I & O 09/28/20 07:00 Intake Total 2430 ml Output Total 1015 ml Balance 1415 ml Capillary Refill : Less Than 3 Seconds General Appearance: Chronically ill HEENT: Other (Great deal of facial edema) Neck: Limited Range of Motion Respiratory: Decreased Breath Sounds, Rhonci (Large airway), Other (intubated on vent) Cardiovascular: Regular Rate, Rhythm, No Gallop Gastrointestinal: soft, no organomegaly; No distended Extremity: Pedal Edema Neurologic/Psychiatric: Other (Sedated and intubated) Skin: Other (Large skin tear of the scrotal area with serosanguineous bloody drainage ?? less edema and not worse than yesterday) Results Lab Laboratory Tests 09/28/20 00:01: Glucometer 92 09/28/20 01:59: White Blood Count 8.8, Red Blood Count 2.40L, Hemoglobin 7.2L, Hematocrit 23L, Mean Corpuscular Volume 95, Mean Corpuscular Hemoglobin 30, Mean Corpuscular Hemoglobin Concent 32, Red Cell Distribution Width 16.2H, Platelet Count 164, Mean Platelet Volume 11.5, Immature Granulocyte % (Auto) 7, Neutrophils (%) (Auto) 84H, Lymphocytes (%) (Auto) 5L, Monocytes (%) (Auto) 2, Eosinophils (%) (Auto) 1, Basophils (%) (Auto) 0, Neutrophils # (Auto) 7.4, Lymphocytes # (Auto) 0.5L, Monocytes # (Auto) 0.2, Eosinophils # (Auto) 0.1, Basophils # (Auto) 0.0, Immature Granulocyte # (Auto) 0.6H, Blood Gas Puncture Site RIGHT RADIAL, Blood Gas Patient Temperature 36.9, Arterial Blood pH 7.19*L, Arterial Blood Partial Pressure CO2 52H, Arterial Blood Partial Pressure O2 100H, Arterial Blood HCO3 19L, Arterial Blood Total CO2 20.7L, Arterial Blood Oxygen Saturation 98, Arterial Blood Base Excess -7.8L, Ned Test POSITIVE, Blood Gas Ventilator Setting YES, Blood Gas Inspired Oxygen 60, Sodium Level 143, Potassium Level 4.7, Chloride Level 111H, Carbon Dioxide Level 18L, Anion Gap 14, Blood Urea Nitrogen 114*H, Creatinine 5.30H, Estimat Glomerular Filtration Rate 11, BUN/Creatinine Ratio 22, Glucose Level 94, Calcium Level 6.6L, Corrected Calcium 8.4L, Phosphorus Level 7.7H, Magnesium Level 2.8H, Total Bilirubin 0.2, Aspartate Amino Transf (AST/SGOT) 37H, Alanine Aminotransferase (ALT/SGPT) 36, Alkaline Phosphatase 50, Total Protein 4.8L, Albumin 1.7L 09/28/20 06:10: Blood Gas Puncture Site RIGHT RADIAL, Blood Gas Patient Temperature 36.3, Arterial Blood pH 7.28*L, Arterial Blood Partial Pressure CO2 44, Arterial Blood Partial Pressure O2 59L, Arterial Blood HCO3 21L, Arterial Blood Total CO2 21.9, Arterial Blood Oxygen Saturation 91L, Arterial Blood Base Excess -5.2L, Ned Test POSITIVE, Blood Gas Ventilator Setting YES, Blood Gas Inspired Oxygen 60 09/28/20 11:43: Glucometer 105 09/28/20 17:24: Glucometer 125H Microbiology 09/24/20 C. difficile GDH Antigen & Toxins - Final, Complete 09/22/20 MRSA Screen - Final, Complete MRSA not isolated 09/22/20 Blood Culture - Final, Complete No growth Assessment/Plan Assessment/Plan Assessment/Plan Scrotal Edema with tear of scrotal skin Covid pneumonia Acute respiratory failure requiring intubation Poor venous access Continue good local wound care with xeroform gauze, keep moist and elevated. W ill consider closing with 0 Chromic. Clinical Quality Measures DVT/VTE Risk/Contraindication: Risk Factor Score Per Nursin RFS Level Per Nursing on Admit: 4+=Very High LUDMILA RANDOLPH DO Sep 28, 2020 20:43
[2020-09-28 20:58] VITALS: BP 109/62
[2020-09-29] VITALS (9 sets, daily range): BP systolic 112–155; BP diastolic 61–85
[2020-09-29] MEDS: MIDAZOLAM DRIP PRE-MIX 100 ML IV SCH ×3 (01:19→19:50)
[2020-09-29] MEDS: RT-ALBUTEROL INHALER HFA (VENTOLIN HFA) 18 GM IH SCH ×6 (02:13→22:56)
[2020-09-29] MEDS: fentaNYL DRIP PRE-MIX 250 ML IV SCH ×4 (02:48→19:50)
[2020-09-29 03:06] LABS: ABG BASE EXCESS -8.9 MMOL/L (-2.5-2.5); ABG OXYGEN SATURATION 94 % (94-100); ABG PCO2 41 MMHG (35-45); ABG PO2 69 MMHG (79-93); ABG TCO2 18.8 MMOL/L (21.0-31.0)
[2020-09-29 03:07] LABS: BASOPHILS % (AUTO) 0 % (0-10); EOSINOPHILS % (AUTO) 0 % (0-10); LYMPHOCYTES # (AUTO) 0.5 10^3/uL (1.0-4.0); LYMPHOCYTES % (AUTO) 4 % (12-44); MEAN CORPUSCULAR HEMOGLOBIN 30 pg (25-34); MEAN CORPUSCULAR HGB CONC 33 g/dL (32-36); MEAN CORPUSCULAR VOLUME 93 fL (80-99); MEAN PLATELET VOLUME 11.3 fL (9.0-12.2); MONOCYTES # (AUTO) 0.2 10^3/uL (0.0-1.0); MONOCYTES % (AUTO) 2 % (0-12); NEUTROPHILS # (AUTO) 9.1 10^3/uL (1.8-7.8); NEUTROPHILS % (AUTO) 89 % (42-75); PLATELET COUNT 160 10^3/uL (130-400); WHITE BLOOD COUNT 10.2 10^3/uL (4.3-11.0)
[2020-09-29 03:12] LABS: ALLENS TEST POSITIVE; INSPIRED O2 70; PATIENT TEMP 35.4; VENTILATOR YES
[2020-09-29 03:14] LABS: ABG PH 7.24 (7.37-7.43)
[2020-09-29 03:15] LABS: HEMATOCRIT 20 % (40-54); HEMOGLOBIN 6.6 g/dL (13.3-17.7)
[2020-09-29 03:23] LABS: POTASSIUM 4.8 MMOL/L (3.6-5.0)
[2020-09-29 03:24] LABS: CALCIUM 6.8 MG/DL (8.5-10.1)
[2020-09-29 03:28] LABS: CREATININE SERUM 5.3 MG/DL (0.60-1.30)
[2020-09-29] MEDS: ARTIFICIAL TEARS OINT (LACRI-LUBE) 3.5 GM TUBE OU SCH ×6 (03:59→23:05)
--- NOTE | 2020-09-29 04:23 | Pulmonary Progress Note ---
Subjective Time Seen by a Provider: 04:18 Sepsis Event Evaluation Height, Weight, BMI Height: '" Weight: lbs. oz. kg; 30.55 BMI Method: Exam Exam Vital Signs Date Time Temp Pulse Resp B/P (MAP) Pulse Ox O2 Delivery O2 Flow Rate FiO2 09/29/20 02:54 35.4 09/29/20 02:13 62 24 93 70 09/28/20 23:17 35.3 09/28/20 23:00 61 38 110/63 (76) 93 Mechanical Ventilator 70.00 09/28/20 22:38 Mechanical Ventilator 70.00 09/28/20 22:00 61 30 106/62 (76) 95 Mechanical Ventilator 80.00 09/28/20 21:00 63 35 107/58 (75) 93 Mechanical Ventilator 80.00 09/28/20 20:58 62 24 93 80 09/28/20 20:37 Mechanical Ventilator 80.00 09/28/20 20:00 64 23 103/60 (75) 97 Mechanical Ventilator 90.00 09/28/20 20:00 93 Mechanical Ventilator 80 09/28/20 19:31 35.3 09/28/20 19:00 66 09/28/20 19:00 66 23 104/61 (74) 97 Mechanical Ventilator 90.00 09/28/20 18:22 67 24 96 90 09/28/20 18:00 69 24 100/58 (72) 94 Mechanical Ventilator 90.00 09/28/20 17:00 76 24 101/57 (72) 94 Mechanical Ventilator 90.00 09/28/20 16:00 70 40 92/53 (66) 95 Mechanical Ventilator 90.00 09/28/20 15:52 35.9 09/28/20 15:25 Mechanical Ventilator 90.00 09/28/20 15:14 68 24 97 100 09/28/20 15:01 75 24 93/54 09/28/20 15:00 68 19 92/54 (67) 95 Mechanical Ventilator 100.00 09/28/20 15:00 75 93/54 09/28/20 15:00 75 93/54 09/28/20 14:00 75 24 93/54 (67) 97 Mechanical Ventilator 100.00 09/28/20 13:27 77 09/28/20 13:00 79 23 104/55 (71) 94 Mechanical Ventilator 100.00 09/28/20 12:00 83 24 110/60 (77) 92 Mechanical Ventilator 100.00 09/28/20 11:43 36.0 09/28/20 11:00 82 23 114/59 (77) 89 Mechanical Ventilator 100.00 09/28/20 10:57 80 24 90 60 09/28/20 10:00 85 24 110/62 (78) 95 Mechanical Ventilator 100.00 09/28/20 09:13 85 111/63 09/28/20 09:12 85 111/63 09/28/20 09:00 86 23 106/61 (76) 94 Mechanical Ventilator 100.00 09/28/20 08:43 Mechanical Ventilator 100.00 09/28/20 08:22 Mechanical Ventilator 80.00 09/28/20 08:00 86 Mechanical Ventilator 80 09/28/20 08:00 84 16 113/66 (82) 90 Mechanical Ventilator 60.00 09/28/20 07:46 36.0 09/28/20 07:07 85 23 95 60 09/28/20 07:00 86 24 111/63 (79) 95 Mechanical Ventilator 60.00 09/28/20 06:58 114/65 09/28/20 06:43 84 09/28/20 06:00 87 24 114/67 (83) 90 Mechanical Ventilator 60.00 09/28/20 05:10 112/67 09/28/20 05:00 96 23 112/67 (82) 95 Mechanical Ventilator 60.00 I & O 09/29/20 07:00 Intake Total 2270 ml Output Total 750 ml Balance 1520 ml Height & Weight Height: '" Weight: lbs. oz. kg; 30.55 BMI Method: General Appearance: Chronically ill HEENT: Other (Great deal of facial edema) Neck: Limited Range of Motion Respiratory: Decreased Breath Sounds, Rhonci (Large airway), Other (intubated on vent) Cardiovascular: Regular Rate, Rhythm, No Gallop Capillary Refill: Less Than 3 Seconds Gastrointestinal: soft, no organomegaly; No distended Extremity: Pedal Edema Neurologic/Psychiatric: Other (Sedated and intubated) Skin: Other (Large skin tear of the scrotal area with serosanguineous bloody drainage ?? less edema and not worse than yesterday) Results Lab Laboratory Tests 09/27/20 14:35 09/28/20 01:59 09/29/20 02:50 Assessment/Plan Assessment/Plan COVID penumonia - Pt intubated through the weekend. -350,/ and 70% -50mg of Rocuronium given -Hold Nimbex -Fentanyl 200 versed 6 and propofol at 20 - Zyvox, zosyn and eraxis. repeat jim cultures. - pending -Decadron -Proning -CVP -Pt does not qualify for remdesivir Worsening renal failure with hyperphos and metabolic acidosis -Family does not want HD -Give 2amps of bicarb secondary PNA - worsening leukocytosis -Zosyn and zyvox -Change Zosyn to Merrem -S/P Eraxis -PCT is 4.73 09/21 -jim cultures Anemia -will repeat at 11:00 Scrotum edema with cellulitis -Surgery following Multiorgan failure Acute renal insufficiency - improving -IVF currently LR at 75 -Monitor -Avoid nephrotoxic meds - AsthmaAE -Albuterol -steroids GI/DVT ppx -Lovenox theraputic dosing secondary to DDIMER -Pepcid Very poor prognosis especially with worsening renal failure. JESSI CRENSHAW DO Sep 29, 2020 04:23
[2020-09-29] MEDS: POTASSIUM CL 10MEQ/50ML IVPB 50 ML IV SCH (05:13)
[2020-09-29] MEDS: MAGNESIUM 1 GM/100 ML IVPB 100 ML IV SCH (05:13)
[2020-09-29] MEDS: inSUlin ASPART (NovoLOG) 1 UNIT/0.01 ML (CHARGE PER UNIT) SQ SCH ×3 (05:14→17:51)
[2020-09-29] MEDS: KCL 20 MEQ TAB (K-DUR) PO SCH (05:14)
[2020-09-29] MEDS: PROPOFOL DRIP (ICU) 100 ML IV SCH ×4 (05:18→23:05)
[2020-09-29] MEDS: CISATRACURIUM INJECTION 100 MG in NS (IVPB) 200 ML IV SCH ×3 (05:18→17:31)
--- NOTE | 2020-09-29 07:48 | Diagnostic Imaging Report ---
INDICATION: Respiratory failure Portable chest 3:31 AM ET tube projects over the trachea. NG tube enters the stomach. Right IJ central line tip projects over the SVC. There are diffuse alveolar infiltrates in the lungs. IMPRESSION: Severe diffuse pulmonary infiltrates. No appreciable change compared to the previous day. Dictated by: Dictated on workstation # [id number]
--- NOTE | 2020-09-29 08:02 | Physical Therapy Progress Note ---
Therapy Progress Note Patient is sedated and intubated. PT will continue to monitor patient status. HENRY GENTILE PT Sep 29, 2020 08:02
[2020-09-29] MEDS: NOREPINEPHRINE 4 MG/250 ML 250 ML IV SCH ×2 (08:25→17:23)
[2020-09-29] MEDS: PANTOPRAZOLE 40 MG (PROTONIX) VIAL IV SCH ×2 (08:25→20:05)
[2020-09-29] MEDS: CALCIUM ACETATE 667 MG CAP (PHOSLO) PO SCH ×3 (08:25→17:30)
[2020-09-29] MEDS: ENOXAPARIN 100 MG/1 ML (LOVENOX) SYR SC SCH (08:56)
[2020-09-29] MEDS: SODIUM BICARBONATE 8.4% VIAL 75 MEQ in 1/2 NS IV SOLUTION 1,000 ML IV SCH ×3 (09:38→23:09)
[2020-09-29 09:48] LABS: BASOPHILS % (AUTO) 0 % (0-10); EOSINOPHILS # (AUTO) 0.1 10^3/uL (0.0-0.3); EOSINOPHILS % (AUTO) 1 % (0-10); LYMPHOCYTES # (AUTO) 0.5 10^3/uL (1.0-4.0); LYMPHOCYTES % (AUTO) 6 % (12-44); MEAN CORPUSCULAR HEMOGLOBIN 30 pg (25-34); MEAN CORPUSCULAR HGB CONC 32 g/dL (32-36); MEAN CORPUSCULAR VOLUME 92 fL (80-99); MEAN PLATELET VOLUME 10.9 fL (9.0-12.2); MONOCYTES # (AUTO) 0.2 10^3/uL (0.0-1.0); MONOCYTES % (AUTO) 2 % (0-12); NEUTROPHILS # (AUTO) 8.3 10^3/uL (1.8-7.8); NEUTROPHILS % (AUTO) 86 % (42-75); PLATELET COUNT 152 10^3/uL (130-400); WHITE BLOOD COUNT 9.6 10^3/uL (4.3-11.0)
[2020-09-29 10:02] LABS: HEMATOCRIT 20 % (40-54); HEMOGLOBIN 6.4 g/dL (13.3-17.7)
[2020-09-29] MEDS ORDERED: NS IV 500 ML 500 ML IV SCH (11:30)
--- NOTE | 2020-09-29 19:41 | Progress Note - Surgery ---
Subjective Time Seen by a Provider: 11:44 Subjective/Events-last exam Pt seen and examined, sedated on vent. Nurse states no significant changes, but his Hg did drop again. Review of Systems unable to obtain, pt sedated Objective Exam Vital Signs Date Time Temp Pulse Resp B/P (MAP) Pulse Ox O2 Delivery O2 Flow Rate FiO2 09/29/20 19:13 35.4 09/29/20 18:33 57 24 91 70 09/29/20 18:00 51 24 136/77 (96) 91 Mechanical Ventilator 70.00 09/29/20 17:00 53 24 128/74 (92) 94 Mechanical Ventilator 70.00 09/29/20 16:00 53 23 130/77 (94) 95 Mechanical Ventilator 70.00 09/29/20 15:48 35.2 09/29/20 15:35 35.6 54 24 125/71 94 Mechanical Ventilator 70 09/29/20 15:00 55 24 125/69 (87) 94 Mechanical Ventilator 70.00 09/29/20 14:31 54 24 93 70 09/29/20 14:00 56 23 125/67 (86) 93 Mechanical Ventilator 70.00 09/29/20 13:30 58 09/29/20 13:30 35.2 56 24 122/69 92 Mechanical Ventilator 70 09/29/20 13:19 57 126/71 09/29/20 13:18 57 126/71 09/29/20 13:14 35.1 57 24 126/71 92 Mechanical Ventilator 70 09/29/20 13:00 81 22 126/71 (89) 92 Mechanical Ventilator 70.00 09/29/20 12:00 34 129/73 (91) 91 Mechanical Ventilator 70.00 09/29/20 11:49 Mechanical Ventilator 70.00 09/29/20 11:12 35.8 09/29/20 11:00 57 23 130/69 (89) 91 Mechanical Ventilator 65.00 09/29/20 10:06 56 24 92 70 09/29/20 10:00 47 27 131/72 (91) 90 Mechanical Ventilator 65.00 09/29/20 09:44 58 24 112/63 09/29/20 09:00 58 23 108/61 (77) 95 Mechanical Ventilator 65.00 09/29/20 08:41 94 Mechanical Ventilator 65 09/29/20 08:17 35.8 Mechanical Ventilator 65.00 09/29/20 08:00 60 24 107/61 (76) 95 Mechanical Ventilator 70.00 09/29/20 07:15 34.1 09/29/20 07:05 58 24 96 65 09/29/20 07:00 57 24 112/63 (79) 97 Mechanical Ventilator 70.00 09/29/20 06:38 58 09/29/20 06:00 59 23 108/59 (75) 97 Mechanical Ventilator 70.00 09/29/20 05:00 59 26 113/65 (81) 96 Mechanical Ventilator 70.00 09/29/20 04:00 61 28 116/64 (81) 95 Mechanical Ventilator 70.00 09/29/20 03:00 61 41 116/63 (80) 93 Mechanical Ventilator 70.00 09/29/20 02:54 35.4 09/29/20 02:13 62 24 93 70 09/29/20 02:00 62 34 113/61 (78) 93 Mechanical Ventilator 70.00 09/29/20 01:00 66 09/29/20 01:00 66 111/58 (75) 93 Mechanical Ventilator 70.00 09/29/20 00:00 59 116/65 (82) 94 Mechanical Ventilator 70.00 09/28/20 23:17 35.3 09/28/20 23:00 61 38 110/63 (76) 93 Mechanical Ventilator 70.00 09/28/20 22:38 Mechanical Ventilator 70.00 09/28/20 22:00 61 30 106/62 (76) 95 Mechanical Ventilator 80.00 09/28/20 21:00 63 35 107/58 (75) 93 Mechanical Ventilator 80.00 09/28/20 20:58 62 24 93 80 09/28/20 20:37 Mechanical Ventilator 80.00 09/28/20 20:00 64 23 103/60 (75) 97 Mechanical Ventilator 90.00 09/28/20 20:00 93 Mechanical Ventilator 80 I & O 09/29/20 07:00 Intake Total 3770 ml Output Total 1400 ml Balance 2370 ml Capillary Refill : Less Than 3 Seconds General Appearance: Chronically ill HEENT: Other (Great deal of facial edema) Neck: Limited Range of Motion Respiratory: Decreased Breath Sounds, Rhonci (Large airway), Other (intubated on vent) Cardiovascular: Regular Rate, Rhythm, No Murmur Gastrointestinal: soft, no organomegaly; No distended Extremity: Pedal Edema Neurologic/Psychiatric: Other (Sedated and intubated) Skin: Other (Large skin tear of the scrotal area with serosanguineous bloody drainage appx same as yesterday) Results Lab Laboratory Tests 09/28/20 23:16: Glucometer 108 09/29/20 02:50: White Blood Count 10.2, Red Blood Count 2.19L, Hemoglobin 6.6*L, Hematocrit 20*L , Mean Corpuscular Volume 93, Mean Corpuscular Hemoglobin 30, Mean Corpuscular Hemoglobin Concent 33, Red Cell Distribution Width 16.0H, Platelet Count 160, Mean Platelet Volume 11.3, Immature Granulocyte % (Auto) 4, Neutrophils (%) (Auto) 89H, Lymphocytes (%) (Auto) 4L, Monocytes (%) (Auto) 2, Eosinophils (%) (Auto) 0, Basophils (%) (Auto) 0, Neutrophils # (Auto) 9.1H, Lymphocytes # (Auto) 0.5L, Monocytes # (Auto) 0.2, Eosinophils # (Auto) 0.0, Basophils # (Auto) 0.0, Immature Granulocyte # (Auto) 0.4H, Blood Gas Puncture Site RIGHT RADIAL, Blood Gas Patient Temperature 35.4, Arterial Blood pH 7.24*L, Arterial Blood Partial Pressure CO2 41, Arterial Blood Partial Pressure O2 69L, Arterial Blood HCO3 17*L, Arterial Blood Total CO2 18.8L, Arterial Blood Oxygen Saturation 94, Arterial Blood Base Excess -8.9L, Ned Test POSITIVE, Blood Gas Ventilator Setting YES, Blood Gas Inspired Oxygen 70, Sodium Level 140, Potassium Level 4.8, Chloride Level 110H, Carbon Dioxide Level 16L, Anion Gap 14, Blood Urea Nitrogen 116*H, Creatinine 5.30H, Estimat Glomerular Filtration Rate 11, BUN/Creatinine Ratio 22, Glucose Level 103, Calcium Level 6.8L, Phosphorus Level 9.6H, Magnesium Level 3.0H, Triglycerides Level 473#H 09/29/20 09:40: White Blood Count 9.6, Red Blood Count 2.15L, Hemoglobin 6.4*L, Hematocrit 20*L, Mean Corpuscular Volume 92, Mean Corpuscular Hemoglobin 30, Mean Corpuscular Hemoglobin Concent 32, Red Cell Distribution Width 15.8H, Platelet Count 152, Mean Platelet Volume 10.9, Immature Granulocyte % (Auto) 5, Neutrophils (%) (Auto) 86H, Lymphocytes (%) (Auto) 6L, Monocytes (%) (Auto) 2, Eosinophils (%) (Auto) 1, Basophils (%) (Auto) 0, Neutrophils # (Auto) 8.3H, Lymphocytes # (Auto) 0.5L, Monocytes # (Auto) 0.2, Eosinophils # (Auto) 0.1, Basophils # (Auto) 0.0, Immature Granulocyte # (Auto) 0.5H 09/29/20 11:13: Glucometer 110 09/29/20 17:48: Glucometer 125H Microbiology 09/24/20 C. difficile GDH Antigen & Toxins - Final, Complete 09/22/20 MRSA Screen - Final, Complete MRSA not isolated 09/22/20 Blood Culture - Final, Complete No growth Assessment/Plan Assessment/Plan Assessment/Plan Scrotal Edema with tear of scrotal skin Covid pneumonia Acute respiratory failure requiring intubation Poor venous access Anemia secondary to GI bleed Continue good local wound care with xeroform gauze, keep moist and elevated. Will close with 0 Chromic on 09/30. Clinical Quality Measures DVT/VTE Risk/Contraindication: Risk Factor Score Per Nursin RFS Level Per Nursing on Admit: 4+=Very High LUDMILA RANDOLPH DO Sep 29, 2020 19:41
[2020-09-30] MEDS: inSUlin ASPART (NovoLOG) 1 UNIT/0.01 ML (CHARGE PER UNIT) SQ SCH ×4 (00:58→17:50)
[2020-09-30] MEDS: NOREPINEPHRINE 4 MG/250 ML 250 ML IV SCH ×3 (01:02→17:50)
[2020-09-30] MEDS: CISATRACURIUM INJECTION 100 MG in NS (IVPB) 200 ML IV SCH ×5 (01:18→21:39)
[2020-09-30] MEDS: fentaNYL DRIP PRE-MIX 250 ML IV SCH ×4 (01:55→21:05)
[2020-09-30 02:46] VITALS: BP 147/81
[2020-09-30] MEDS: RT-ALBUTEROL INHALER HFA (VENTOLIN HFA) 18 GM IH SCH ×6 (02:46→21:50)
[2020-09-30 03:30] LABS: BASOPHILS % (AUTO) 0 % (0-10); EOSINOPHILS % (AUTO) 0 % (0-10); HEMATOCRIT 24 % (40-54); HEMOGLOBIN 7.8 g/dL (13.3-17.7); LYMPHOCYTES # (AUTO) 0.6 10^3/uL (1.0-4.0); LYMPHOCYTES % (AUTO) 6 % (12-44); MEAN CORPUSCULAR HEMOGLOBIN 30 pg (25-34); MEAN CORPUSCULAR HGB CONC 33 g/dL (32-36); MEAN CORPUSCULAR VOLUME 90 fL (80-99); MEAN PLATELET VOLUME 11.2 fL (9.0-12.2); MONOCYTES # (AUTO) 0.3 10^3/uL (0.0-1.0); MONOCYTES % (AUTO) 3 % (0-12); NEUTROPHILS # (AUTO) 8.2 10^3/uL (1.8-7.8); NEUTROPHILS % (AUTO) 84 % (42-75); PLATELET COUNT 154 10^3/uL (130-400); WHITE BLOOD COUNT 9.8 10^3/uL (4.3-11.0)
[2020-09-30 03:32] LABS: POTASSIUM 4.5 MMOL/L (3.6-5.0)
[2020-09-30 03:33] LABS: CALCIUM 6.8 MG/DL (8.5-10.1)
[2020-09-30 03:37] LABS: CREATININE SERUM 4.81 MG/DL (0.60-1.30); PHOSPHORUS 9.2 MG/DL (2.3-4.7)
--- NOTE | 2020-09-30 04:41 | Pulmonary Progress Note ---
Subjective Time Seen by a Provider: 04:37 Subjective/Events-last exam Sedated on vent. Sepsis Event Evaluation Height, Weight, BMI Height: '" Weight: lbs. oz. kg; 30.55 BMI Method: Exam Exam Vital Signs Date Time Temp Pulse Resp B/P (MAP) Pulse Ox O2 Delivery O2 Flow Rate FiO2 09/30/20 04:00 58 23 147/83 (104) Mechanical Ventilator 70.00 09/30/20 03:00 57 24 148/81 (103) 95 Mechanical Ventilator 70.00 09/30/20 02:46 57 24 95 70 09/30/20 02:00 55 23 148/80 (102) 95 Mechanical Ventilator 70.00 09/30/20 01:00 56 23 145/79 (101) 94 Mechanical Ventilator 70.00 09/30/20 01:00 56 09/30/20 00:00 58 23 145/80 (101) 95 Mechanical Ventilator 70.00 09/29/20 23:05 57 155/85 09/29/20 23:05 57 155/85 09/29/20 23:00 56 23 155/85 (108) 99 Mechanical Ventilator 70.00 09/29/20 22:56 55 24 97 70 09/29/20 22:00 56 23 149/79 (102) 93 Mechanical Ventilator 70.00 09/29/20 21:00 58 24 147/79 (101) 93 Mechanical Ventilator 70.00 09/29/20 20:00 64 23 144/78 (100) 92 Mechanical Ventilator 70.00 09/29/20 19:50 65 23 147/77 09/29/20 19:13 35.4 09/29/20 19:00 70 24 140/75 (96) 92 Mechanical Ventilator 70.00 09/29/20 19:00 70 09/29/20 18:33 57 24 91 70 09/29/20 18:00 51 24 136/77 (96) 91 Mechanical Ventilator 70.00 09/29/20 17:00 53 24 128/74 (92) 94 Mechanical Ventilator 70.00 09/29/20 16:00 53 23 130/77 (94) 95 Mechanical Ventilator 70.00 09/29/20 15:48 35.2 09/29/20 15:35 35.6 54 24 125/71 94 Mechanical Ventilator 70 09/29/20 15:00 55 24 125/69 (87) 94 Mechanical Ventilator 70.00 09/29/20 14:31 54 24 93 70 09/29/20 14:00 56 23 125/67 (86) 93 Mechanical Ventilator 70.00 09/29/20 13:30 58 09/29/20 13:30 35.2 56 24 122/69 92 Mechanical Ventilator 70 09/29/20 13:19 57 126/71 09/29/20 13:18 57 126/71 09/29/20 13:14 35.1 57 24 126/71 92 Mechanical Ventilator 70 09/29/20 13:00 81 22 126/71 (89) 92 Mechanical Ventilator 70.00 09/29/20 12:00 34 129/73 (91) 91 Mechanical Ventilator 70.00 09/29/20 11:49 Mechanical Ventilator 70.00 09/29/20 11:12 35.8 09/29/20 11:00 57 23 130/69 (89) 91 Mechanical Ventilator 65.00 09/29/20 10:06 56 24 92 70 09/29/20 10:00 47 27 131/72 (91) 90 Mechanical Ventilator 65.00 09/29/20 09:44 58 24 112/63 09/29/20 09:00 58 23 108/61 (77) 95 Mechanical Ventilator 65.00 09/29/20 08:41 94 Mechanical Ventilator 65 09/29/20 08:17 35.8 Mechanical Ventilator 65.00 09/29/20 08:00 60 24 107/61 (76) 95 Mechanical Ventilator 70.00 09/29/20 07:15 34.1 09/29/20 07:05 58 24 96 65 09/29/20 07:00 57 24 112/63 (79) 97 Mechanical Ventilator 70.00 09/29/20 06:38 58 09/29/20 06:00 59 23 108/59 (75) 97 Mechanical Ventilator 70.00 09/29/20 05:00 59 26 113/65 (81) 96 Mechanical Ventilator 70.00 I & O 09/30/20 07:00 Intake Total 2360 ml Output Total 2050 ml Balance 310 ml Height & Weight Height: '" Weight: lbs. oz. kg; 30.55 BMI Method: General Appearance: Chronically ill HEENT: Other (Great deal of facial edema) Neck: Limited Range of Motion Respiratory: Decreased Breath Sounds, Rhonci (Large airway), Other (intubated on vent) Cardiovascular: Regular Rate, Rhythm, No Murmur Capillary Refill: Less Than 3 Seconds Gastrointestinal: soft, no organomegaly; No distended Extremity: Pedal Edema Neurologic/Psychiatric: Other (Sedated and intubated) Skin: Other (Large skin tear of the scrotal area with serosanguineous bloody drainage appx same as yesterday) Results Lab Laboratory Tests 09/29/20 02:50 09/29/20 09:40 09/30/20 03:10 Assessment/Plan Assessment/Plan COVID penumonia - Pt intubated through the weekend. -350,/ and 70% -50mg of Rocuronium given -Propofol 20, Fentanyl 200, Versed 10 , Nimbex -Fentanyl 200 versed 6 and propofol at 20 - Zyvox, zosyn and eraxis. repeat jim cultures. - pending -Decadron -Proning -CVP -Pt does not qualify for remdesivir Worsening renal failure with hyperphos and metabolic acidosis -Family does not want HD -IVF are going at 100cc/hr -Give 2amps of bicarb secondary PNA - worsening leukocytosis -Zosyn and zyvox -Change Zosyn to Merrem -S/P Eraxis -PCT is 4.73 09/21 -jim cultures Anemia -will repeat at 11:00 Scrotum edema with cellulitis -Surgery following Multiorgan failure Acute renal insufficiency - improving -IVF currently LR at 75 -Monitor -Avoid nephrotoxic meds - AsthmaAE -Albuterol -steroids GI/DVT ppx -Lovenox theraputic dosing secondary to DDIMER -Pepcid Very poor prognosis especially with worsening renal failure. JESSI CRENSHAW DO Sep 30, 2020 04:41
[2020-09-30] MEDS: ARTIFICIAL TEARS OINT (LACRI-LUBE) 3.5 GM TUBE OU SCH ×5 (04:48→19:27)
[2020-09-30] MEDS: MIDAZOLAM DRIP PRE-MIX 100 ML IV SCH ×2 (05:46→14:50)
[2020-09-30] MEDS: POTASSIUM CL 10MEQ/50ML IVPB 50 ML IV SCH (06:04)
[2020-09-30] MEDS: MAGNESIUM 1 GM/100 ML IVPB 100 ML IV SCH (06:04)
[2020-09-30] MEDS: KCL 20 MEQ TAB (K-DUR) PO SCH (06:05)
--- NOTE | 2020-09-30 07:22 | Diagnostic Imaging Report ---
INDICATION: COVID pneumonia. Comparison with 09/29/2020. FINDINGS: ET tube, NG tube and right central line remain in good position. Bilateral 5 lobe pneumonia is again noted more dense on the right. Overall appearance has not changed significantly. IMPRESSION: 1. Tubes and lines remain in good position. 2. Bilateral pneumonia more severe on the right appears unchanged. Dictated by: Dictated on workstation # [id number]
[2020-09-30 07:49] VITALS: BP 176/83
--- NOTE | 2020-09-30 08:12 | Physical Therapy Progress Note ---
Therapy Progress Note Patient is sedated and intubated. PT will continue to monitor patient status. ASAEL LABOY PT Sep 30, 2020 08:12
[2020-09-30] MEDS: PANTOPRAZOLE 40 MG (PROTONIX) VIAL IV SCH ×2 (08:32→21:05)
[2020-09-30] MEDS: CALCIUM ACETATE 667 MG CAP (PHOSLO) PO SCH ×3 (08:32→18:10)
[2020-09-30] MEDS: SODIUM BICARBONATE 8.4% VIAL 75 MEQ in 1/2 NS IV SOLUTION 1,000 ML IV SCH ×3 (10:04→19:27)
[2020-09-30 10:13] VITALS: BP 159/84
[2020-09-30] MEDS: PROPOFOL DRIP (ICU) 100 ML IV SCH ×2 (14:51→14:52)
[2020-09-30 18:40] VITALS: BP 150/77
[2020-09-30 21:50] VITALS: BP 167/78
[2020-10-01] MEDS: MIDAZOLAM DRIP PRE-MIX 100 ML IV SCH ×3 (00:49→09:03)
[2020-10-01] MEDS: inSUlin ASPART (NovoLOG) 1 UNIT/0.01 ML (CHARGE PER UNIT) SQ SCH ×3 (00:50→11:50)
[2020-10-01] MEDS: ARTIFICIAL TEARS OINT (LACRI-LUBE) 3.5 GM TUBE OU SCH ×4 (00:50→11:49)
[2020-10-01 01:19] VITALS: BP 190/82
[2020-10-01] MEDS: RT-ALBUTEROL INHALER HFA (VENTOLIN HFA) 18 GM IH SCH ×3 (01:19→10:07)
[2020-10-01 02:23] LABS: BASOPHILS % (AUTO) 0 % (0-10); EOSINOPHILS % (AUTO) 0 % (0-10); HEMATOCRIT 26 % (40-54); HEMOGLOBIN 8.4 g/dL (13.3-17.7); LYMPHOCYTES # (AUTO) 0.7 10^3/uL (1.0-4.0); LYMPHOCYTES % (AUTO) 6 % (12-44); MEAN CORPUSCULAR HEMOGLOBIN 30 pg (25-34); MEAN CORPUSCULAR HGB CONC 33 g/dL (32-36); MEAN CORPUSCULAR VOLUME 91 fL (80-99); MEAN PLATELET VOLUME 11.2 fL (9.0-12.2); MONOCYTES # (AUTO) 0.3 10^3/uL (0.0-1.0); MONOCYTES % (AUTO) 3 % (0-12); NEUTROPHILS # (AUTO) 10.3 10^3/uL (1.8-7.8); NEUTROPHILS % (AUTO) 82 % (42-75); PLATELET COUNT 159 10^3/uL (130-400); WHITE BLOOD COUNT 12.6 10^3/uL (4.3-11.0)
[2020-10-01 02:24] LABS: ABG BASE EXCESS -7.3 MMOL/L (-2.5-2.5); ABG OXYGEN SATURATION 91 % (94-100); ABG PCO2 48 MMHG (35-45); ABG PO2 67 MMHG (79-93)
[2020-10-01 02:30] LABS: ALLENS TEST YES-POS; INSPIRED O2 80%; PATIENT TEMP 35.4; VENTILATOR YES
[2020-10-01 02:33] LABS: ABG PH 7.22 (7.37-7.43)
[2020-10-01] MEDS: NOREPINEPHRINE 4 MG/250 ML 250 ML IV SCH ×2 (02:42→09:03)
[2020-10-01 02:50] LABS: POTASSIUM 4.3 MMOL/L (3.6-5.0)
[2020-10-01 02:51] LABS: CALCIUM 6.9 MG/DL (8.5-10.1)
[2020-10-01 02:55] LABS: PHOSPHORUS 7.7 MG/DL (2.3-4.7)
[2020-10-01 02:56] LABS: CREATININE SERUM 4.23 MG/DL (0.60-1.30)
[2020-10-01] MEDS: fentaNYL DRIP PRE-MIX 250 ML IV SCH ×3 (03:36→11:49)
[2020-10-01] MEDS: CISATRACURIUM INJECTION 100 MG in NS (IVPB) 200 ML IV SCH ×3 (05:06→12:41)
[2020-10-01] MEDS: SODIUM BICARBONATE 8.4% VIAL 75 MEQ in 1/2 NS IV SOLUTION 1,000 ML IV SCH (05:10)
--- NOTE | 2020-10-01 05:53 | Pulmonary Progress Note ---
Subjective Time Seen by a Provider: 05:53 Subjective/Events-last exam Pt is sedated on vent. Sepsis Event Evaluation Height, Weight, BMI Height: '" Weight: lbs. oz. kg; 30.55 BMI Method: Exam Exam Vital Signs Date Time Temp Pulse Resp B/P (MAP) Pulse Ox O2 Delivery O2 Flow Rate FiO2 10/01/20 05:19 35.7 10/01/20 05:03 92 24 176/74 10/01/20 04:00 81 171/85 (113) 92 Mechanical Ventilator 80.00 10/01/20 03:00 79 163/84 (110) 92 Mechanical Ventilator 80.00 10/01/20 02:20 35.4 80.00 10/01/20 02:00 80 169/86 (113) 91 Mechanical Ventilator 100.00 10/01/20 01:19 90 24 90 80 10/01/20 01:00 82 10/01/20 01:00 82 23 190/82 (118) 91 Mechanical Ventilator 100.00 10/01/20 00:49 82 23 196/90 10/01/20 00:00 74 23 178/83 (114) 92 Mechanical Ventilator 100.00 09/30/20 23:00 71 23 170/80 (110) 93 Mechanical Ventilator 100.00 09/30/20 22:00 69 24 169/81 (110) 94 Mechanical Ventilator 100.00 09/30/20 21:50 70 24 94 70 09/30/20 21:00 69 24 162/82 (108) 94 Mechanical Ventilator 100.00 09/30/20 20:53 Mechanical Ventilator 09/30/20 20:00 68 23 160/79 (106) 93 Mechanical Ventilator 100.00 09/30/20 20:00 35.1 09/30/20 19:00 70 09/30/20 19:00 70 24 157/79 (105) 93 Mechanical Ventilator 100.00 09/30/20 18:40 66 24 97 70 09/30/20 18:00 68 24 149/81 (103) 98 Mechanical Ventilator 100.00 09/30/20 17:00 72 24 152/80 (104) 98 Mechanical Ventilator 100.00 09/30/20 16:00 76 23 152/79 (103) 96 Mechanical Ventilator 100.00 09/30/20 15:11 35.8 09/30/20 15:00 81 23 150/78 (102) 95 Mechanical Ventilator 100.00 09/30/20 14:52 84 165/83 09/30/20 14:51 84 165/83 09/30/20 14:50 84 23 165/83 09/30/20 14:44 84 24 95 90 09/30/20 14:00 86 24 165/83 (110) 95 Mechanical Ventilator 100.00 09/30/20 13:00 89 23 166/82 (110) 94 Mechanical Ventilator 100.00 09/30/20 12:57 88 09/30/20 12:00 92 24 175/83 (113) 94 Mechanical Ventilator 100.00 09/30/20 11:22 35.1 09/30/20 11:00 89 25 180/86 (117) 93 Mechanical Ventilator 100.00 09/30/20 10:47 Mechanical Ventilator 100.00 09/30/20 10:38 91 159/84 09/30/20 10:13 91 24 88 100 09/30/20 10:00 85 24 178/82 (114) 88 Mechanical Ventilator 70.00 09/30/20 09:00 90 24 163/77 (105) 91 Mechanical Ventilator 70.00 09/30/20 08:00 100 23 164/81 (108) Mechanical Ventilator 70.00 09/30/20 08:00 35.3 09/30/20 08:00 91 Mechanical Ventilator 70 09/30/20 07:49 100 24 70 09/30/20 07:00 64 24 154/81 (105) Mechanical Ventilator 70.00 09/30/20 06:48 64 09/30/20 06:00 64 23 153/78 (103) Mechanical Ventilator 70.00 I & O 10/01/20 07:00 Intake Total 800 ml Output Total 2800 ml Balance -2000 ml Height & Weight Height: '" Weight: lbs. oz. kg; 30.55 BMI Method: General Appearance: Chronically ill HEENT: Other (Great deal of facial edema) Neck: Limited Range of Motion Respiratory: Decreased Breath Sounds, Rhonci (Large airway), Other (intubated on vent) Cardiovascular: Regular Rate, Rhythm, No Murmur Capillary Refill: Less Than 3 Seconds Gastrointestinal: soft, no organomegaly; No distended Extremity: Pedal Edema Neurologic/Psychiatric: Other (Sedated and intubated) Skin: Other (Large skin tear of the scrotal area with serosanguineous bloody drainage appx same as yesterday) Results Lab Laboratory Tests 09/29/20 09:40 09/30/20 03:10 10/01/20 02:00 Assessment/Plan Assessment/Plan SAVANAWILMER johnsononia - Pt intubated through the weekend. -350,/ and 70% -50mg of Rocuronium given -Propofol 20, Fentanyl 200, Versed 10 , Nimbex -Hold Nimbex and Propofol -Fentanyl 200 versed 6 and propofol at 20 - Zyvox, zosyn and eraxis. repeat jim cultures. - pending -Decadron -Proning -CVP -Pt does not qualify for remdesivir Worsening renal failure with hyperphos and metabolic acidosis -Family does not want HD -IVF are going at 100cc/hr -Give 2amps of bicarb secondary PNA - worsening leukocytosis -Zosyn and zyvox -Change Zosyn to Merrem -S/P Eraxis -PCT is 4.73 09/21 -jim cultures Anemia -will repeat at 11:00 Scrotum edema with cellulitis -Surgery following Multiorgan failure Acute renal insufficiency - improving -IVF currently LR at 75 -Monitor -Avoid nephrotoxic meds - AsthmaAE -Albuterol -steroids GI/DVT ppx -Lovenox theraputic dosing secondary to DDIMER -Pepcid Very poor prognosis especially with worsening renal failure. Called to pt's bedside secondary to worsening respiratory failure. RT is at bedside bagging patient. Sp02 is in the 70's. Nimbex restarted and Rocuronium push given. I explain again details of Comfort measures only. Family is going to call back once they have discussed options. Increase PEEP to 20. UPDATE: family called back with more questions. I answered all questions to the best of my ability Critical Care: Critically Ill Patient Time spent with patient (mins): 120 JESSI CRENSHAW DO Oct 01, 2020 05:53
[2020-10-01] MEDS ORDERED: LACTATED RINGERS 1,000 ML IV SCH (06:00)
[2020-10-01] MEDS: POTASSIUM CL 10MEQ/50ML IVPB 50 ML IV SCH (06:20)
[2020-10-01] MEDS: KCL 20 MEQ TAB (K-DUR) PO SCH (06:23)
[2020-10-01] MEDS: MAGNESIUM 1 GM/100 ML IVPB 100 ML IV SCH (06:25)
[2020-10-01] MEDS ORDERED: hydrALAZINE (APESOLINE) 20 MG/ML VIAL IV PRN (06:30)
[2020-10-01 06:44] VITALS: BP 182/76
[2020-10-01] MEDS ORDERED: HALOPERIDOL 5 MG/ML (HALDOL) VIAL IM PRN (07:45)
[2020-10-01] MEDS ORDERED: LORazepam INJ 2 MG/ML (ATIVAN) VIAL IVP PRN ×2 (07:45→12:00)
--- NOTE | 2020-10-01 07:59 | Diagnostic Imaging Report ---
INDICATION: Covid pneumonia. Comparison made with prior examination from 09/30/2020. FINDINGS: There is cardiomegaly. There are diffuse bilateral pulmonary infiltrates. ET and NG and PICC line are satisfactory position. There is no pneumothorax. Mediastinum is unremarkable. IMPRESSION: Diffuse bilateral pulmonary infiltrates suspect for Covid pneumonia. Some underlying central pulmonary venous congestion cannot be excluded. Dictated by: Dictated on workstation # [id number]
--- NOTE | 2020-10-01 08:11 | Physical Therapy Progress Note ---
Therapy Progress Note Patient is sedated and intubated. PT will continue to monitor patient status. HENRY GENTILE PT Oct 01, 2020 08:11
[2020-10-01] MEDS: CALCIUM ACETATE 667 MG CAP (PHOSLO) PO SCH ×2 (08:18→12:41)
[2020-10-01] MEDS: PANTOPRAZOLE 40 MG (PROTONIX) VIAL IV SCH (08:18)
[2020-10-01 10:07] VITALS: BP 155/75
--- NOTE | 2020-10-01 10:55 | Progress Note - Surgery ---
Subjective Time Seen by a Provider: 10:34 Subjective/Events-last exam Pt seen and examined, still intubated. Nurse informed me family has made pt comfort care. Review of Systems unable to obtain, pt sedated Objective Exam Vital Signs Date Time Temp Pulse Resp B/P (MAP) Pulse Ox O2 Delivery O2 Flow Rate FiO2 10/01/20 10:07 106 24 94 100 10/01/20 10:00 106 23 155/75 (101) 94 Mechanical Ventilator 100.00 10/01/20 09:03 106 24 163/76 10/01/20 09:00 105 23 163/76 (105) 93 Mechanical Ventilator 100.00 10/01/20 08:00 103 28 174/90 (118) 84 Mechanical Ventilator 100.00 10/01/20 07:49 Mechanical Ventilator 100.00 10/01/20 07:00 98 24 192/84 (120) 89 Mechanical Ventilator 80.00 10/01/20 06:44 98 24 91 80 10/01/20 06:32 98 10/01/20 06:00 97 179/73 (108) 91 Mechanical Ventilator 80.00 10/01/20 05:19 35.7 10/01/20 05:03 92 24 176/74 10/01/20 05:00 91 24 167/86 (113) 92 Mechanical Ventilator 80.00 10/01/20 04:00 81 171/85 (113) 92 Mechanical Ventilator 80.00 10/01/20 03:00 79 163/84 (110) 92 Mechanical Ventilator 80.00 10/01/20 02:20 35.4 80.00 10/01/20 02:00 80 169/86 (113) 91 Mechanical Ventilator 100.00 10/01/20 01:19 90 24 90 80 10/01/20 01:00 82 10/01/20 01:00 82 23 190/82 (118) 91 Mechanical Ventilator 100.00 10/01/20 00:49 82 23 196/90 10/01/20 00:00 74 23 178/83 (114) 92 Mechanical Ventilator 100.00 09/30/20 23:00 71 23 170/80 (110) 93 Mechanical Ventilator 100.00 09/30/20 22:00 69 24 169/81 (110) 94 Mechanical Ventilator 100.00 09/30/20 21:50 70 24 94 70 09/30/20 21:00 69 24 162/82 (108) 94 Mechanical Ventilator 100.00 09/30/20 20:53 Mechanical Ventilator 09/30/20 20:00 68 23 160/79 (106) 93 Mechanical Ventilator 100.00 09/30/20 20:00 35.1 09/30/20 19:00 70 09/30/20 19:00 70 24 157/79 (105) 93 Mechanical Ventilator 100.00 09/30/20 18:40 66 24 97 70 09/30/20 18:00 68 24 149/81 (103) 98 Mechanical Ventilator 100.00 09/30/20 17:00 72 24 152/80 (104) 98 Mechanical Ventilator 100.00 09/30/20 16:00 76 23 152/79 (103) 96 Mechanical Ventilator 100.00 09/30/20 15:11 35.8 09/30/20 15:00 81 23 150/78 (102) 95 Mechanical Ventilator 100.00 09/30/20 14:52 84 165/83 09/30/20 14:51 84 165/83 09/30/20 14:50 84 23 165/83 09/30/20 14:44 84 24 95 90 09/30/20 14:00 86 24 165/83 (110) 95 Mechanical Ventilator 100.00 09/30/20 13:00 89 23 166/82 (110) 94 Mechanical Ventilator 100.00 09/30/20 12:57 88 09/30/20 12:00 92 24 175/83 (113) 94 Mechanical Ventilator 100.00 09/30/20 11:22 35.1 09/30/20 11:00 89 25 180/86 (117) 93 Mechanical Ventilator 100.00 I & O 10/01/20 07:00 Intake Total 2835 ml Output Total 2800 ml Balance 35 ml Capillary Refill : Less Than 3 Seconds General Appearance: Chronically ill HEENT: Other (Great deal of facial edema) Neck: Limited Range of Motion Respiratory: Decreased Breath Sounds, Rhonci (Large airway), Other (intubated on vent) Cardiovascular: Regular Rate, Rhythm, No Murmur Gastrointestinal: soft, no organomegaly; No distended Extremity: Pedal Edema Neurologic/Psychiatric: Other (Sedated and intubated) Skin: Other (Large skin tear of the scrotal area with serosanguineous bloody drainage appx same as yesterday) Results Lab Laboratory Tests 09/30/20 11:22: Glucometer 97 09/30/20 17:14: Glucometer 114H 10/01/20 00:45: Glucometer 82 10/01/20 02:00: White Blood Count 12.6H, Red Blood Count 2.82L, Hemoglobin 8.4L, Hematocrit 26L, Mean Corpuscular Volume 91, Mean Corpuscular Hemoglobin 30, Mean Corpuscular Hemoglobin Concent 33, Red Cell Distribution Width 16.1H, Platelet Count 159, Mean Platelet Volume 11.2, Immature Granulocyte % (Auto) 9, Neutrophils (%) (Auto) 82H, Lymphocytes (%) (Auto) 6L, Monocytes (%) (Auto) 3, Eosinophils (%) (Auto) 0, Basophils (%) (Auto) 0, Neutrophils # (Auto) 10.3H, Lymphocytes # (Auto) 0.7L, Monocytes # (Auto) 0.3, Eosinophils # (Auto) 0.0, Basophils # (Auto ) 0.0, Immature Granulocyte # (Auto) 1.2H, Blood Gas Puncture Site R WRIST, Blood Gas Patient Temperature 35.4, Arterial Blood pH 7.22*L, Arterial Blood Partial Pressure CO2 48H, Arterial Blood Partial Pressure O2 67L, Arterial Blood HCO3 19L, Arterial Blood Total CO2 21.0, Arterial Blood Oxygen Saturation 91L, Arterial Blood Base Excess -7.3L, Ned Test YES-POS, Blood Gas Ventilator Setting YES, Blood Gas Inspired Oxygen 80%, Sodium Level 142, Potassium Level 4.3, Chloride Level 113H, Carbon Dioxide Level 18L, Anion Gap 11, Blood Urea Nitrogen 104*H, Creatinine 4.23#H, Estimat Glomerular Filtration Rate 14, BUN/Creatinine Ratio 25, Glucose Level 88, Calcium Level 6.9L, Phosphorus Level 7.7H, Magnesium Level 2.6H, Triglycerides Level 756#H Microbiology 09/24/20 C. difficile GDH Antigen & Toxins - Final, Complete 09/22/20 MRSA Screen - Final, Complete MRSA not isolated 09/22/20 Blood Culture - Final, Complete No growth Assessment/Plan Assessment/Plan Assessment/Plan Scrotal Edema with tear of scrotal skin - will leave alone since pt is now comfort care Covid pneumonia Acute respiratory failure requiring intubation Poor venous access Anemia secondary to GI bleed Will sign off and can reconsult as needed. Clinical Quality Measures DVT/VTE Risk/Contraindication: Risk Factor Score Per Nursin RFS Level Per Nursing on Admit: 4+=Very High LUDMILA RANDOLPH DO Oct 01, 2020 10:55
[2020-10-01] MEDS ORDERED: morphine INJ 4 MG/ML 1 ML (VIAL/SYRINGE) IVP PRN (12:00)
--- NOTE | 2020-10-01 13:55 | Physical Therapy Progress Note ---
Therapy Progress Note Non skilled PROM in available planes B U/LE. BEST REDDY PT Oct 01, 2020 13:55
--- NOTE | 2020-10-01 13:55 | Physical Therapy Progress Note ---
Therapy Progress Note Non skilled PROM in available planes B U/LE. This note is for 09/30/2020 BEST REDDY PT Oct 01, 2020 13:55
== END 2020-10-01 16:58 | disposition expired | DRG 207 ==
LOC: ER FS 23:49 → ICU 09-17 03:03
PROVIDERS: ADMIT Internal Medicine; ATTEND Internal Medicine Critical Care Medicine
PROC: 5A09457 Assistance with Respiratory Ventilation, 24-96 Consecutive Hours, Continuous Positive Airway Pressure (ICD-10-PCS; 2020-09-17)
PROC: 5A1955Z Respiratory Ventilation, Greater than 96 Consecutive Hours (ICD-10-PCS; principal; 2020-09-19)
PROC: 0BH17EZ Insertion of Endotracheal Airway into Trachea, Via Natural or Artificial Opening (ICD-10-PCS; 2020-09-19)
PROC: XW13325 Transfusion of Convalescent Plasma (Nonautologous) into Peripheral Vein, Percutaneous Approach, New Technology Group 5 (ICD-10-PCS; 2020-09-21)
DX: U07.1 COVID-19 (principal); J12.82 Pneumonia due to coronavirus disease 2019; J80 Acute respiratory distress syndrome; J18.9 Pneumonia, unspecified organism; J45.901 Unspecified asthma with (acute) exacerbation; N17.9 Acute kidney failure, unspecified; Z68.41 Body mass index [BMI] 40.0-44.9, adult; Z66 Do not resuscitate; Z51.5 Encounter for palliative care; E87.0 Hyperosmolality and hypernatremia; E87.2 Acidosis; K92.2 Gastrointestinal hemorrhage, unspecified; J44.9 Chronic obstructive pulmonary disease, unspecified; E11.9 Type 2 diabetes mellitus without complications; E66.9 Obesity, unspecified; E83.39 Other disorders of phosphorus metabolism; N50.89 Other specified disorders of the male genital organs; N49.2 Inflammatory disorders of scrotum; D50.0 Iron deficiency anemia secondary to blood loss (chronic); Z73.0 Burn-out
CPT/HCPCS: 36415; 36569; 71045; 76937; 80048; 80053; 81000; 82274; 82728; 82805; 82962; 83605; 83735; 83880; 84100; 84145; 84478; 84484; 85007; 85014; 85018; 85025; 85027; 85379; 85610; 86850; 86900; 86901; 86920; 87040; 87070; 87081; 87205; 87324; 87449; 93005; 94002; 94003; 94640; 94660; 94799; 96361; 96365; 96375; 99291